=== PATIENT | male | born 1935 | race Caucasian/White ===

== ENCOUNTER → 2016-12-06 | Outpatient (CLI) | payer OTHER ==
[~2016-12-06] MED LIST: ACAR25TA2 PO; AMOX1TAB42 PO; APR25 PO; ASPI81TA28 PO; CARV12.52 PO; CARV25TA2 PO; CHOL1000 PO; CHOL20009 PO; CIPR250T3 PO; CLC100 PO; COEN1CAP32 PO; CZR25 PO; FLNIN; GFNSR600 PO; GLC/500 PO; HYDR-5688 PO; HYDR12.55 PO; INSU0.01 SQ; ISOS30TA35 PO; LDDP5 TD; MOMLX PO; MRLP17 PO; NRV5 PO; OMEP20CA9 PO; SALI0.6510; THM100 PO; TRAMTAB5 PO; VLTG EXT; ZCR40 PO
[2016-12-06 10:13] LABS: HEMATOCRIT 36.5 % (42-52); MEAN CELL VOLUME 90.6 fL (80-100); MEAN CORPUSCULAR HGB CONC 32.1 g/dl (32-36); MEAN PLATELET VOLUME 10.2 fL (7.4-10.4); PLATELET COUNT 190 K/uL (130-400); RED BLOOD COUNT 4.03 M/uL (4.7-6.1); WHITE BLOOD COUNT 5.58 K/uL (4.8-10.8)
[2016-12-06 10:25] LABS: BLOOD UREA NITROGEN 40 mg/dl (7-18); BUN/CREATININE RATIO 13.2 (10-20); CALCIUM 8.9 mg/dl (8.5-10.1); CARBON DIOXIDE 28 mmol/L (21-32); CHLORIDE 103 mmol/L (98-107); GLUCOSE 288 mg/dl (70-99); PHOSPHORUS 3.4 mg/dl (2.5-4.9); POTASSIUM 4.9 mmol/L (3.5-5.1); SODIUM 140 mmol/L (136-145)
[2016-12-06 11:00] LABS: URINE PROTIEN/CREAT RATIO 4.6 (0-0.2); URINE TOTAL PROTEIN 510.9 mg/dl (0-11.9)
[2016-12-06 14:21] LABS: MANUAL MICROSCOPIC REQUIRED? YES; URINE APPEARANCE CLEAR (CLEAR); URINE BILIRUBIN NEG (NEG); URINE COLOR YELLOW; URINE NITRITE NEG (NEG); URINE SPECIFIC GRAVITY 1.025 (1.000-1.030); UROBILINOGEN NEG (NEG)
[2016-12-06 14:23] LABS: REVIEW REQ? NO
[2016-12-06 14:51] LABS: URINE BACTERIA 1+ (NEG); URINE RBC 0-4 /hpf (0-4)
[2016-12-09 10:49] LABS: FREE KAPPA 73.4 MG/L (3.3-19.4); FREE KAPPA/LAMBDA RATIO 1.6 (0.26-1.65); FREE LAMBDA 45.9 MG/L (5.7-26.3)
== END | disposition home or self-care (01) ==
LOC: C.LAB1850 08:58
PROVIDERS: ATTEND Internal Medicine Nephrology
DX: I12.9 Hypertensive chronic kidney disease with stage 1 through stage 4 chronic kidney disease, or unspecified chronic kidney disease (principal); R80.9 Proteinuria, unspecified; N18.3 Chronic kidney disease, stage 3 (moderate); D64.9 Anemia, unspecified; E55.9 Vitamin D deficiency, unspecified

== ENCOUNTER → 2016-12-19 | Outpatient (CLI) | payer OTHER ==
--- NOTE | 2016-12-19 10:00 | DIAGNOSTIC IMAGING REPORT ---
Duplex renal Doppler DUPLEX RENAL ARTERY CLINICAL HISTORY: I10 [id number] [id number] Chronic kidney disease, s hypertension TECHNIQUE: Doppler COMPARISON STUDY: None FINDINGS: Velocity characteristics are unremarkable bilaterally. There is no evidence for significant stenotic process. Impedance characteristics are unremarkable. There are findings of moderate cortical thinning and scarring bilaterally. There is no evidence for hydronephrosis. IMPRESSION: No evidence for renal arterial stenosis. Electronically signed by: Rufus Pham M.D. 12/19/2016 9:58 AM Dictated Date/Time: 12/19/2016 9:57 AM
--- NOTE | 2016-12-19 10:07 | DIAGNOSTIC IMAGING REPORT ---
RENAL ULTRASOUND HISTORY: Hypertension I10 [id number] [id number] Chronic kidney disease, s COMPARISON: 10/11/2015 FINDINGS: Right kidney: Maximum dimension 10.9 cm. No evidence for hydronephrosis. Moderate cortical thinning and cortical scarring bilaterally Left kidney: Maximum dimension 10.0 cm. No evidence for hydronephrosis. Moderate cortical scarring and thinning Normal corticomedullary differentiation and cortical thickness. Bladder: No bladder wall thickening. The bilateral ureteral jets were identified. IMPRESSION: No evidence for hydronephrosis. Moderate cortical thinning and cortical scarring bilaterally. Electronically signed by: Rufus Pham M.D. 12/19/2016 10:06 AM Dictated Date/Time: 12/19/2016 10:03 AM
== END | disposition home or self-care (01) ==
LOC: C.ULTR 08:49
PROVIDERS: ATTEND Internal Medicine Nephrology
DX: D64.9 Anemia, unspecified (principal); I12.9 Hypertensive chronic kidney disease with stage 1 through stage 4 chronic kidney disease, or unspecified chronic kidney disease; N18.3 Chronic kidney disease, stage 3 (moderate); E55.9 Vitamin D deficiency, unspecified

== ENCOUNTER → 2017-01-20 | Outpatient (CLI) | payer OTHER ==
[2017-01-20 11:10] LABS: HEMATOCRIT 35.2 % (42-52); MEAN CELL VOLUME 88.7 fL (80-100); MEAN CORPUSCULAR HEMOGLOBIN 29.2 pg (25-34); MEAN PLATELET VOLUME 9.7 fL (7.4-10.4); PLATELET COUNT 202 K/uL (130-400); RED BLOOD COUNT 3.97 M/uL (4.7-6.1); WHITE BLOOD COUNT 6.37 K/uL (4.8-10.8)
[2017-01-20 11:13] LABS: URINE APPEARANCE CLEAR (CLEAR); URINE BILIRUBIN NEG (NEG); URINE COLOR YELLOW; URINE NITRITE NEG (NEG); URINE SPECIFIC GRAVITY 1.022 (1.000-1.030); UROBILINOGEN NEG (NEG)
[2017-01-20 11:19] LABS: MANUAL MICROSCOPIC REQUIRED? NO; REVIEW REQ? NO
[2017-01-20 11:24] LABS: BLOOD UREA NITROGEN 50 mg/dl (7-18); BUN/CREATININE RATIO 18.3 (10-20); CALCIUM 9.1 mg/dl (8.5-10.1); CARBON DIOXIDE 26 mmol/L (21-32); CHLORIDE 105 mmol/L (98-107); GLUCOSE 214 mg/dl (70-99); PHOSPHORUS 3.4 mg/dl (2.5-4.9); POTASSIUM 4.7 mmol/L (3.5-5.1); SODIUM 140 mmol/L (136-145)
[2017-01-20 11:47] LABS: URINE PROTIEN/CREAT RATIO 2.5 (0-0.2); URINE TOTAL PROTEIN 330.8 mg/dl (0-11.9)
== END | disposition home or self-care (01) ==
LOC: C.LAB1850 09:45
PROVIDERS: ATTEND Internal Medicine Nephrology
DX: I10 Essential (primary) hypertension (principal); R80.9 Proteinuria, unspecified; N18.3 Chronic kidney disease, stage 3 (moderate); D64.9 Anemia, unspecified; E55.9 Vitamin D deficiency, unspecified

== ENCOUNTER → 2017-03-19 | Outpatient (CLI) | payer OTHER ==
--- NOTE | 2017-03-19 10:07 | DIAGNOSTIC IMAGING REPORT ---
CHEST 2 VIEWS ROUTINE HISTORY: Cough. COMPARISON: Chest 10/06/2015. FINDINGS: The heart remains borderline enlarged. Linear density at the left lung base have improved and likely represent atelectasis or scarring. No new focal lung consolidations to suggest pneumonia. No evidence for pulmonary edema. No pleural effusions. No pneumothorax. IMPRESSION: 1. No acute process within the chest. 2. Stable borderline enlargement of the cardiac silhouette Electronically signed by: Justyn Mena M.D. 03/19/2017 10:06 AM Dictated Date/Time: 03/19/2017 10:04 AM
== END | disposition home or self-care (01) ==
LOC: C.RAD1850 09:41
PROVIDERS: ATTEND Family Medicine
DX: R05 Cough (principal); R09.89 Other specified symptoms and signs involving the circulatory and respiratory systems

== ENCOUNTER 2017-03-31 13:07 | Inpatient (IN) | payer OTHER ==
[~2017-03-31] VITALS: Ht 172.7 cm; Wt 95.5 kg
[~2017-03-31 13:07] MED LIST changes: -ACAR25TA2 PO; -AMOX1TAB42 PO; -APR25 PO; -CARV25TA2 PO; -CHOL1000 PO; -CIPR250T3 PO; -CLC100 PO; -CZR25 PO; -FLNIN; -GFNSR600 PO; -HYDR-5688 PO; -HYDR12.55 PO; -INSU0.01 SQ; -ISOS30TA35 PO; -LDDP5 TD; -MOMLX PO; -MRLP17 PO; -SALI0.6510; -THM100 PO; -VLTG EXT
[2017-03-31 14:10] LABS: BASO % 0.4 %; BASO ABS # 0.03 K/uL (0-0.2); COMPLETE YES; EOS % 1.9 %; HEMATOCRIT 39.2 % (42-52); IG% 0.9 %; LYMPH % 23.7 %; LYMPH ABS # 1.64 K/uL (1.2-3.4); MEAN CELL VOLUME 91.4 fL (80-100); MEAN CORPUSCULAR HEMOGLOBIN 28.7 pg (25-34); MEAN CORPUSCULAR HGB CONC 31.4 g/dl (32-36); MEAN PLATELET VOLUME 9.5 fL (7.4-10.4); MONO % 8.7 %; NEUT % 64.4 %; PLATELET COUNT 247 K/uL (130-400); RED BLOOD COUNT 4.29 M/uL (4.7-6.1); WHITE BLOOD COUNT 6.92 K/uL (4.8-10.8)
[2017-03-31] MEDS ORDERED: SODIUM CHLORIDE 0.9% 500ML 500 ML IV STA (14:25)
[2017-03-31 14:33] LABS: AST/SGOT 16 U/L (15-37); BLOOD UREA NITROGEN 43 mg/dl (7-18); BUN/CREATININE RATIO 15.2 (10-20); CALCIUM 8.4 mg/dl (8.5-10.1); CARBON DIOXIDE 28 mmol/L (21-32); CHLORIDE 106 mmol/L (98-107); GLUCOSE 146 mg/dl (70-99); POTASSIUM 4.2 mmol/L (3.5-5.1); SODIUM 141 mmol/L (136-145)
--- NOTE | 2017-03-31 14:42 | DIAGNOSTIC IMAGING REPORT ---
CT HEAD WITHOUT CONTRAST (CT) CLINICAL HISTORY: new onset double vision COMPARISON STUDY: No previous studies for comparison. TECHNIQUE: Axial CT of the brain is performed from the vertex to the skull base. IV contrast was not administered for this examination. CT DOSE: 812.17 mGycm FINDINGS: No intra or extra-axial mass lesions are visualized. There is no CT evidence of acute cortical infarction. There is no evidence of midline shift. There is no acute hemorrhage. No calvarial fractures are visualized. There are moderate white matter hypodensities likely on a small vessel basis. There is no evidence of pathologic ventricular dilatation. There is bilateral maxilla sinus mucosal thickening. There is complete opacification of the right sphenoid sinus. There are multiple opacified ethmoid air cells. There is near complete opacification left frontal sinus. IMPRESSION: 1. Progressive pansinus disease 2. Otherwise no acute intracranial findings Electronically signed by: Darren Campos M.D. 03/31/2017 2:41 PM Dictated Date/Time: 03/31/2017 2:39 PM
[2017-03-31 14:44] LABS: ALKALINE PHOSPHATASE 76 U/L (45-117); ALT/SGPT 21 U/L (12-78); THYROID STIMULATING HORMONE 0.998 uIu/ml (0.300-4.500)
--- NOTE | 2017-03-31 14:54 | DIAGNOSTIC IMAGING REPORT ---
SINGLE VIEW CHEST CLINICAL HISTORY: Cough. Change in mental status. FINDINGS: An AP, portable, upright chest radiograph is compared to study dated 03/19/2017. The examination is degraded by portable technique and patient rotation. The heart is mildly enlarged. The pulmonary vasculature is noncongested. Chronic interstitial thickening is similar to previous. Atelectasis is noted at the left lung base. Lungs and pleural spaces are otherwise clear. No pneumothorax is seen. The skeletal structures are osteopenic. The bony thorax is grossly intact. IMPRESSION: Mild cardiac enlargement with no acute cardiopulmonary abnormality. Electronically signed by: Cleveland Otoole M.D. 03/31/2017 2:53 PM Dictated Date/Time: 03/31/2017 2:52 PM
--- NOTE | 2017-03-31 15:12 | EMERGENCY ROOM VISIT NOTE ---
History First contact with patient: 13:45 Chief Complaint: DIZZY Stated Complaint: DIZZY, SEEING DOUBLE Nursing Triage Summary: "I have been getting light headed for a couple weeks or better it got worse over the weekend I started to see double" PCP took him off Januvia and replaced it with acarbose History of Present Illness The patient is a 81 year old male who presents to the Emergency Room with complaints of diplopia and pain above his left eye. He has had sinus pain for the past 2 months to a year, he is unsure of any treatment for this but has seen his primary care doctor who he remembers only prescribing him ear drops. He has not used any nasal sprays or antibiotics recently. It is now a constant ache which does not go away. His diplopia is his main reason for coming to the ER today with associated light headedness. This has slowly progressively worsened over the past 2 weeks. He denies any fevers, chills or vision changes other than the diplopia. He denies any other focal weakness or change in sensation. He notes his blood pressure increases every time he comes into hospital or goes to his PCP office but is normal at home. Review of Systems See HPI for pertinent positives & negatives. A total of 10 systems reviewed and were otherwise acutely negative. Past Medical/Surgical History Medical Problems: (1) Abrasion (2) ACEI/ARB contraindicated (3) Acute renal failure superimposed on stage 3 chronic kidney disease (4) Chest wall contusion (5) Chronic Kidney Disease, Unspecified (6) Diab Lori Wo Comp Type Ii Or Nos/Not Uncontrolled (7) Dizziness (8) Fall (9) Fall (10) Fall (11) Fall (12) History Of Fall (13) Hyperlipidemia Nec/Nos (14) Hypertension Nos (15) Hypertensive urgency (16) Intractable back pain (17) Intractable back pain (18) Proteinuria (19) Shoulder pain (20) Shoulder pain (21) Sinus disease (22) Spinal stenosis (23) Spinal Stenosis-Lumbar (24) Weakness Surgical Problems: (1) History of back surgery Family History Cancer Diabetes mellitus Heart disease Hypertension Social History Smoking Status: Former Smoker Drug Use: none Marital Status: Housing Status: lives with significant other Occupation Status: retired Current/Historical Medications Scheduled Acarbose (Precose), 25 MG PO DAILY Aspirin (Aspirin Ec), 81 MG PO QAM Carvedilol (Coreg), 12.5 MG PO BID Cholecalciferol (Vitamin D3), 2,000 INTER.UNIT PO QAM Hydrochlorothiazide (Hydrochlorothiazide), 12.5 MG PO DAILY Insulin Isophane (Human) (Novolin N Relion), 10 UNITS SQ QPM Isosorbide Mononitrate Ext Rel (Imdur Ext Rel), 30 MG PO DAILY Losartan Potassium (Losartan Potassium), 25 MG PO DAILY Omeprazole (Prilosec), 20 MG PO QAM Scheduled PRN Tramadol/Acetaminophen (Ultracet), 1 TAB PO TID PRN for Pain Allergies Coded Allergies: Lisinopril (Verified Allergy, Unknown, HIVES, 03/31/17) Lovastatin (Verified Allergy, Unknown, LEG CRAMPS, 03/31/17) Rofecoxib (Verified Allergy, Unknown, UNKNOWN, 03/31/17) Simvastatin (Verified Allergy, Unknown, LEG CRAMPS, 03/31/17) Methadone (Verified Adverse Reaction, Unknown, HALUCINATIONS, AGITATION, HEADACHES, 03/31/17) Physical Exam Vital Signs Date Time Temp Pulse Resp B/P (MAP) Pulse Ox O2 Delivery O2 Flow Rate FiO2 03/31/17 19:33 203/88 95 03/31/17 17:32 200/78 03/31/17 17:14 86 16 227/95 95 Room Air 03/31/17 15:44 63 20 210/86 96 Room Air 214/89 03/31/17 14:55 66 16 228/81 95 Room Air 198/97 03/31/17 13:43 68 18 208/75 95 Room Air 78 183/102 73 194/77 03/31/17 13:40 67 03/31/17 13:30 95 Room Air 03/31/17 13:15 36.3 70 20 198/83 95 Room Air Physical Exam VITAL SIGNS: were reviewed as above GENERAL: no acute distress, lying in bed, appears non toxic SKIN: Warm dry and pink, no rashes HEAD: Normocephalic and atraumatic, no pain on palpation of sinuses EYES: extraocular muscles intact (diplopia noted on inferior gaze with and without glasses, resolves with closes one eye), pupils equal and reactive to light, no papilledema OROPHARYNX: non erythematous, clear and moist, uvula central NECK: Supple, no adenopathy or meningismus LUNGS: clear to auscultation, no accessory muscle use HEART: Regular rate and rhythm, heart sounds 1+2, soft systolic murmur LUSB ABDOMEN: Soft and nontender, bowel sounds normal BACK: no CVA tenderness EXTREMITIES: Warm and well perfused, no calf tenderness/swelling, no pedal edema. NEUROLOGICALLY: Awake alert and oriented. Upper and lower limb motor and sensory examination unremarkable. Cranial nerves 2-12 intact (except diplopia as noted above). Cerebellar testing is within normal limits. There is no nystagmus. There is no facial droop. Speech is clear. Vision is grossly normal. He appears mildly confused about recent events and history. HINTS examination negative for central lesion. MUSCULOSKELETAL: Good muscle tone. No evidence of trauma Medical Decision & Procedures ER Provider Diagnostic Interpretation: CT HEAD WITHOUT CONTRAST (CT) CLINICAL HISTORY: new onset double vision COMPARISON STUDY: No previous studies for comparison. TECHNIQUE: Axial CT of the brain is performed from the vertex to the skull base. IV contrast was not administered for this examination. CT DOSE: 812.17 mGycm FINDINGS: No intra or extra-axial mass lesions are visualized. There is no CT evidence of acute cortical infarction. There is no evidence of midline shift. There is no acute hemorrhage. No calvarial fractures are visualized. There are moderate white matter hypodensities likely on a small vessel basis. There is no evidence of pathologic ventricular dilatation. There is bilateral maxilla sinus mucosal thickening. There is complete opacification of the right sphenoid sinus. There are multiple opacified ethmoid air cells. There is near complete opacification left frontal sinus. IMPRESSION: 1. Progressive pansinus disease 2. Otherwise no acute intracranial findings Electronically signed by: Darren Campos M.D. 03/31/2017 2:41 PM Dictated Date/Time: 03/31/2017 2:39 PM SINGLE VIEW CHEST CLINICAL HISTORY: Cough. Change in mental status. FINDINGS: An AP, portable, upright chest radiograph is compared to study dated 03/19/2017. The examination is degraded by portable technique and patient rotation. The heart is mildly enlarged. The pulmonary vasculature is noncongested. Chronic interstitial thickening is similar to previous. Atelectasis is noted at the left lung base. Lungs and pleural spaces are otherwise clear. No pneumothorax is seen. The skeletal structures are osteopenic. The bony thorax is grossly intact. IMPRESSION: Mild cardiac enlargement with no acute cardiopulmonary abnormality. Electronically signed by: Cleveland Otoole M.D. 03/31/2017 2:53 PM Dictated Date/Time: 03/31/2017 2:[address] DOSE: 905.86 mGy.cm HISTORY: Pain left frontal sinus opacification, inferior gaze diplopia TECHNIQUE: Multiaxial CT images of the paranasal sinuses were performed and reformatted in the coronal plane without the use of contrast. COMPARISON: 06/20/2008 FINDINGS: Progressive increase in opacification of the left central frontal sinus, ethmoid air cells, as well as the left and to lesser extent right maxillary sinus. Soft tissue occlusion of the ostiomeatal units bilaterally. Polypoid and hyperplastic changes the nasal turbinates. No evidence for bony destructive process. All findings are at least mildly progressive compared to the prior exam. A previously placed left antral window is opacified and/or occluded. The mastoid air cells are clear. The nasal septum is midline. The orbits are unremarkable. IMPRESSION: 1. Progressive opacification of the bulk of the sinuses as described. 2. The ostiomeatal units as well as left antral window are soft tissue occluded. 3. All findings are progressive compared to the prior exam. Electronically signed by: Rufus Pham M.D. 03/31/2017 6:13 PM Dictated Date/Time: 03/31/2017 6:10 PM Laboratory Results 03/31/17 13:36 Red Blood Count 4.29, Mean Corpuscular Volume 91.4, Mean Corpuscular Hemoglobin 28.7, Mean Corpuscular Hemoglobin Concent 31.4, Mean Platelet Volume 9.5, Neutrophils (%) (Auto) 64.4, Lymphocytes (%) (Auto) 23.7, Monocytes (%) (Auto) 8.7, Eosinophils (%) (Auto) 1.9, Basophils (%) (Auto) 0.4, Neutrophils # (Auto) 4.46, Lymphocytes # (Auto) 1.64, Monocytes # (Auto) 0.60, Eosinophils # (Auto) 0.13, Basophils # (Auto) 0.03 03/31/17 13:36 Test 03/31/17 00:00 03/31/17 13:36 Urine Color YELLOW Urine Appearance CLEAR (CLEAR) Urine pH 5.5 (4.5-7.5) Urine Specific [place] 1.015 (1.000-1.030) Urine Protein 2+ (NEG) Urine Glucose (UA) NEG (NEG) Urine Ketones NEG (NEG) Urine Occult Blood TRACE (NEG) Urine Nitrite NEG (NEG) Urine Bilirubin NEG (NEG) Urine Urobilinogen NEG (NEG) Urine Leukocyte Esterase NEG (NEG) Urine WBC (Auto) 0 /hpf (0-5) Urine RBC (Auto) 0-4 /hpf (0-4) Urine Hyaline Casts (Auto) 0 /lpf (0-5) Urine Epithelial Cells (Auto) 0-5 /lpf (0-5) Urine Bacteria (Auto) NEG (NEG) White Blood Count 6.92 K/uL (4.8-10.8) Red Blood Count 4.29 M/uL (4.7-6.1) Hemoglobin 12.3 g/dL (14.0-18.0) Hematocrit 39.2 % (42-52) Mean Corpuscular Volume 91.4 fL (80-100) Mean Corpuscular Hemoglobin 28.7 pg (25-34) Mean Corpuscular Hemoglobin Concent 31.4 g/dl (32-36) Platelet Count 247 K/uL (130-400) Mean Platelet Volume 9.5 fL (7.4-10.4) Neutrophils (%) (Auto) 64.4 % Lymphocytes (%) (Auto) 23.7 % Monocytes (%) (Auto) 8.7 % Eosinophils (%) (Auto) 1.9 % Basophils (%) (Auto) 0.4 % Neutrophils # (Auto) 4.46 K/uL (1.4-6.5) Lymphocytes # (Auto) 1.64 K/uL (1.2-3.4) Monocytes # (Auto) 0.60 K/uL (0.11-0.59) Eosinophils # (Auto) 0.13 K/uL (0-0.5) Basophils # (Auto) 0.03 K/uL (0-0.2) RDW Standard Deviation 49.3 fL (36.4-46.3) RDW Coefficient of Variation 14.7 % (11.5-14.5) Immature Granulocyte % (Auto) 0.9 % Immature Granulocyte # (Auto) 0.06 K/uL (0.00-0.02) Anion Gap 7.0 mmol/L (3-11) Estimated GFR () 23.5 Estimated GFR (Non- 20.2 BUN/Creatinine Ratio 15.2 (10-20) Calcium Level 8.4 mg/dl (8.5-10.1) Total Bilirubin 0.3 mg/dl (0.2-1) Direct Bilirubin < 0.1 mg/dl (0-0.2) Aspartate Amino Transf (AST/SGOT) 16 U/L (15-37) Alanine Aminotransferase (ALT/SGPT) 21 U/L (12-78) Alkaline Phosphatase 76 U/L (45-117) Total Protein 8.1 gm/dl (6.4-8.2) Albumin 3.7 gm/dl (3.4-5.0) Thyroid Stimulating Hormone (TSH) 0.998 uIu/ml (0.300-4.500) Medications Administered Medications (Trade) Dose Ordered Sig/Sloan Route Start Time Stop Time Status Last Admin Dose Admin Sodium Chloride 500 ml @ 999 mls/hr Q31M STAT IV 03/31/17 14:25 03/31/17 14:55 DC 03/31/17 14:49 999 MLS/HR Ampicillin Sodium/ Sulbactam Sodium 3000 mg/Sodium Chloride 108 ml @ 200 mls/hr NOW STAT IV 03/31/17 15:59 03/31/17 16:31 DC 03/31/17 16:22 200 MLS/HR Carvedilol (Coreg Tab) 12.5 mg NOW STAT PO 03/31/17 16:13 03/31/17 16:14 DC 03/31/17 16:22 12.5 MG Carvedilol (Coreg Tab) 12.5 mg NOW ONCE PO 03/31/17 16:45 03/31/17 16:46 DC 03/31/17 16:48 12.5 MG Labetalol HCl (Normodyne IV) 10 mg ONE STAT IV 03/31/17 17:21 03/31/17 17:23 DC 03/31/17 17:32 10 MG Dexamethasone Sodium Phosphate 2 mg/Syringe 0.5 ml @ 1 mls/min ONE STAT IV 03/31/17 18:15 03/31/17 18:18 DC 03/31/17 18:15 1 MLS/MIN ECG Indication: altered mental status Rate (beats per minute): 67 Rhythm: normal sinus Findings: no acute ischemic change Change: no significant change ED Course Complete history and physical taken, routine labs with TSH and CT head ordered Discussed patient with Dr Rolon, recommended ambulating and discussing with neurology after CT head 16:[address] head patient was discussed with Dr Malhotra who recommended MRI head 17:[address] Juan who recommended CT sinuses and inpatient admission for stroke if MRI abnormal or need for IV antibiotics and steroids if MRI is normal for potential superior oblique involvement. 17:[address] Werner who accepted patient for evaluation for admission Medical Decision Prior records/ancillary studies reviewed. Triage Nursing notes reviewed. The patient's history was concerning for dizziness, diplopia and sinus pain. Differential diagnosis: Etiologies such as orbital cellulitis, benign positional vertigo, dehydration, hypovolemia, anemia, tumor, infection, hypoglycemia, electrolyte abnormalities, cardiac sources, intracerebral event, toxicologic, neurologic, as well as others were entertained. Physical examination: Diplopia on inferior gaze as above, resolves with closing either eye. ER treatment provided: Home dose of carvedilol given for hypertension, labetalol added due to persistent hypertension. Unasyn given for sinusitis with possible superior oblique involvement. Dexamethasone given as discussed with Dr Juan. On reassessment the patient felt well but diplopia continues Diagnostics interpretation by me: ECG: Normal sinus rhythm without ischemic change or evidence of dysrhythmia. His labs were stable with a normal WBC. Consultation: A consultation was placed with the [facility] hospitalist. The case was discussed and diagnostics were reviewed. The patient was evaluated in the ER for further treatment. Etiology of diplopia unclear and awaiting results of MRI when discussed with hospitalist. CVA not ruled out at this time but sinusitis with edema of superior oblique is also concerning enough for admission and consultation with ENT if MRI is negative for acute CVA. The patient, his and son were informed about the findings as listed above. All questions were answered and he pleased with the treatment. He will be evaluated by [facility] hospitalist group for inpatient admission. Impression Primary Impression: Diplopia Additional Impressions: Sinusitis Hypertensive urgency Departure Information Dispostion Being Evaluated By Hospitalist Condition GOOD Referrals Von Kam M.D. 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
[2017-03-31] MEDS ORDERED: AMPICILLIN/SULBACTAM SOD INJ 3,000 MG in SODIUM CHLORIDE 0.9% 100ML 100 ML IV STA (15:59)
[2017-03-31] MEDS ORDERED: INSU0.01 SQ (16:04)
[2017-03-31] MEDS ORDERED: HYDR12.55 PO (16:04)
[2017-03-31] MEDS ORDERED: CZR25 PO (16:04)
[2017-03-31] MEDS ORDERED: ACAR25TA2 PO (16:04)
[2017-03-31] MEDS ORDERED: ISOS30TA35 PO (16:04)
[2017-03-31] MEDS ORDERED: ASPI81TA28 PO (16:07)
[2017-03-31] MEDS ORDERED: CHOL1000 PO (16:07)
[2017-03-31] MEDS ORDERED: CARV25TA2 PO (16:07)
[2017-03-31] MEDS ORDERED: CARVEDILOL 12.5 MG TAB PO STA (16:13)
[2017-03-31] MEDS ORDERED: CARVEDILOL 12.5 MG TAB PO ONE (16:45)
[2017-03-31] MEDS ORDERED: LABETALOL HCL IV 5 MG/ML 20ML IV STA (17:21)
[2017-03-31 17:37] LABS: URINE APPEARANCE CLEAR (CLEAR); URINE BILIRUBIN NEG (NEG); URINE COLOR YELLOW; URINE EPITHELIAL CELL AUTO 0-5 /lpf (0-5); URINE NITRITE NEG (NEG); URINE PH 5.5 (4.5-7.5); URINE SPECIFIC GRAVITY 1.015 (1.000-1.030); UROBILINOGEN NEG (NEG)
[2017-03-31 17:39] LABS: MANUAL MICROSCOPIC REQUIRED? NO; REVIEW REQ? NO
--- NOTE | 2017-03-31 18:14 | DIAGNOSTIC IMAGING REPORT ---
SINUS CT CT DOSE: 905.86 mGy.cm HISTORY: Pain left frontal sinus opacification, inferior gaze diplopia TECHNIQUE: Multiaxial CT images of the paranasal sinuses were performed and reformatted in the coronal plane without the use of contrast. COMPARISON: 06/20/2008 FINDINGS: Progressive increase in opacification of the left central frontal sinus, ethmoid air cells, as well as the left and to lesser extent right maxillary sinus. Soft tissue occlusion of the ostiomeatal units bilaterally. Polypoid and hyperplastic changes the nasal turbinates. No evidence for bony destructive process. All findings are at least mildly progressive compared to the prior exam. A previously placed left antral window is opacified and/or occluded. The mastoid air cells are clear. The nasal septum is midline. The orbits are unremarkable. IMPRESSION: 1. Progressive opacification of the bulk of the sinuses as described. 2. The ostiomeatal units as well as left antral window are soft tissue occluded. 3. All findings are progressive compared to the prior exam. Electronically signed by: Rufus Pham M.D. 03/31/2017 6:13 PM Dictated Date/Time: 03/31/2017 6:10 PM
[2017-03-31] MEDS ORDERED: DEXAMETHASONE INJ 2 MG in SYRINGE 0 ML IV STA (18:15)
--- NOTE | 2017-03-31 18:38 | DIAGNOSTIC IMAGING REPORT ---
Brain MRI WITHOUT CONTRAST HISTORY: Visual change diplopia on inferior gaze TECHNIQUE: Multiplanar multisequence MRI of the brain was performed without the use of contrast. COMPARISON STUDY: 03/01/2014 FINDINGS: Diffusion-weighted images show no evidence for an acute ischemic event. Findings of generalized moderate cerebellar as well as cerebral atrophy. Considerable chronic small vessel change. Mild progressive opacification of the sinuses. No evidence of midline shift. IMPRESSION: 1. No acute intracranial abnormality. 2. No evidence for an acute ischemic event. 3. Atrophy and chronic small vessel change somewhat progressive compared to the prior study 2013 4. Mildly progressive sinus change compared to the prior exam. Electronically signed by: Rufus Pham M.D. 03/31/2017 6:36 PM Dictated Date/Time: 03/31/2017 6:34 PM
--- NOTE | 2017-03-31 18:54 | History and Physical ---
History & Physical Date & Time of Service: Mar 31, 2017 at 18:35 Chief Complaint: Dizzy, Seeing Double Primary Care Physician: Von Kam M.D. History of Present Illness Source: patient, family About 4-5 days ago, patient began experiencing dizziness and lightheadedness, which are long standing symptoms ongoing for a couple of months, possibly orthostatic in nature and a/w rapid movements/changes in position. Around the same time, he began having issues with balance (but denies recent falls) and double vision. He also states there is some pain above the left eye, although previously it was painful over entire left face. Patient denies URTI symptoms, but states that he has had cough for a couple of months - with associated chest pain on coughing. He denies significant history of sinus infections. Patient denies history of stroke, as well as dropping eye lid, slurred speech, difficulty swallowing or asymmetric weakness/paralysis. He also has a history of elevated blood pressure, for which he is on 4 antihypertensives. He believes his current elevated blood pressure is related to the severe back pain he is having (also chronic, but recently worsened as per patient), which he attributes to lying in bed. At home he sleeps in a recliner due to back pain, not orthopnea. He denies headache, abdominal pain, worsening vision. Past Medical/Surgical History Medical Problems: (1) Abrasion Status: Resolved (2) Chest wall contusion Status: Resolved (3) Chronic Kidney Disease, Unspecified Status: Chronic (4) Diab Lori Wo Comp Type Ii Or Nos/Not Uncontrolled Status: Chronic (5) Dizziness Status: Resolved (6) Fall Status: Resolved (7) Fall Status: Resolved (8) Fall Status: Resolved (9) Fall Status: Resolved (10) History Of Fall Status: Resolved (11) Hyperlipidemia Nec/Nos Status: Chronic (12) Hypertension Nos Status: Chronic (13) Shoulder pain Status: Resolved (14) Shoulder pain Status: Resolved (15) Spinal Stenosis-Lumbar Status: Chronic Surgical Problems: (1) History of back surgery Status: Resolved Family History Cancer Diabetes mellitus Heart disease Hypertension Social History Smoking Status: Former Smoker (Ex smoker of 50 years, stopped chewing as of setp 2016) Drug Use: none Marital Status: Housing status: lives with significant other Occupational Status: retired Immunizations History of Influenza Vaccine: N/A History of Tetanus Vaccine?: Yes History of Pneumococcal: Yes History of Hepatitis B Vaccine: No Multi-Drug Resistant Organisms History of MDRO: No Allergies Coded Allergies: Lisinopril (Verified Allergy, Unknown, HIVES, 03/31/17) Lovastatin (Verified Allergy, Unknown, LEG CRAMPS, 03/31/17) Rofecoxib (Verified Allergy, Unknown, UNKNOWN, 03/31/17) Simvastatin (Verified Allergy, Unknown, LEG CRAMPS, 03/31/17) Methadone (Verified Adverse Reaction, Unknown, HALUCINATIONS, AGITATION, HEADACHES, 03/31/17) Home Medications Scheduled Acarbose (Precose), 25 MG PO DAILY Aspirin (Aspirin Ec), 81 MG PO QAM Carvedilol (Coreg), 12.5 MG PO BID Cholecalciferol (Vitamin D3), 2,000 INTER.UNIT PO QAM Hydrochlorothiazide (Hydrochlorothiazide), 12.5 MG PO DAILY Insulin Isophane (Human) (Novolin N Relion), 10 UNITS SQ QPM Isosorbide Mononitrate Ext Rel (Imdur Ext Rel), 30 MG PO DAILY Losartan Potassium (Losartan Potassium), 25 MG PO DAILY Omeprazole (Prilosec), 20 MG PO QAM Scheduled PRN Tramadol/Acetaminophen (Ultracet), 1 TAB PO TID PRN for Pain Review of Systems Constitutional: No fever, No chills Eyes: + diplopia, + problem reported (Dry eyes), No eye pain, No discharge ENT: + hearing loss, No nasal symptoms, No sore throat, No tinnitus, No dental problems, No trouble swallowing Respiratory: + cough, + dyspnea on exertion (with stairs), + problem reported ( Dry mouth), No sputum, No shortness of breath Cardiovascular: + chest pain (2/2 to coughing), + orthopnea (2/2 to back pain) , No palpitations Abdomen: + constipation, No pain, No nausea, No vomiting, No GI bleeding Musculoskeletal: + joint pain (back pain, arthritis of hands), No muscle pain Genitourinary - Male: + problem reported (nocturia), No hematuria, No dysuria Neurologic: + balance problems, No numbness/tingling Integumentary: No rash, No itch Allergic / Immunologic: No environmental allergies, No seasonal allergies, No pet sensitivities, No food allergies Physical Exam Vital Signs Date Time Temp Pulse Resp B/P (MAP) Pulse Ox O2 Delivery O2 Flow Rate FiO2 03/31/17 17:32 200/78 03/31/17 17:14 86 16 227/95 95 Room Air 03/31/17 15:44 63 20 210/86 96 Room Air 214/89 03/31/17 14:55 66 16 228/81 95 Room Air 198/97 03/31/17 13:43 68 18 208/75 95 Room Air 78 183/102 73 194/77 03/31/17 13:40 67 03/31/17 13:30 95 Room Air 03/31/17 13:15 36.3 70 20 198/83 95 Room Air General Appearance: WD/WN, no apparent distress Head: normocephalic, atraumatic Eyes: normal inspection, PERRL (small pupils ~2-3mm), EOMI, sclerae normal, + pertinent finding (poor tracking, no nystagmus, diplopia elicited on viewing patient's feet. 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 nml as tested, no motor/sensory deficits, alert, normal mood/affect, oriented x 3 Skin: normal color, warm/dry, no rash Diagnostics Laboratory Results Results Past 24 Hours Test 03/31/17 00:00 03/31/17 13:36 Range/Units Urine Color YELLOW Urine Appearance CLEAR CLEAR Urine pH 5.5 4.5-7.5 Urine Specific [place] 1.015 1.000-1.030 Urine Protein 2+ NEG Urine Glucose (UA) NEG NEG Urine Ketones NEG NEG Urine Occult Blood TRACE NEG Urine Nitrite NEG NEG Urine Bilirubin NEG NEG Urine Urobilinogen NEG NEG Urine Leukocyte Esterase NEG NEG Urine WBC (Auto) 0 0-5 /hpf Urine RBC (Auto) 0-4 0-4 /hpf Urine Hyaline Casts (Auto) 0 0-5 /lpf Urine Epithelial Cells (Auto) 0-5 0-5 /lpf Urine Bacteria (Auto) NEG NEG White Blood Count 6.92 4.8-10.8 K/uL Red Blood Count 4.29 4.7-6.1 M/uL Hemoglobin 12.3 14.0-18.0 g/dL Hematocrit 39.2 42-52 % Mean Corpuscular Volume 91.4 80-100 fL Mean Corpuscular Hemoglobin 28.7 25-34 pg Mean Corpuscular Hemoglobin Concent 31.4 32-36 g/dl Platelet Count 247 130-400 K/uL Mean Platelet Volume 9.5 7.4-10.4 fL Neutrophils (%) (Auto) 64.4 % Lymphocytes (%) (Auto) 23.7 % Monocytes (%) (Auto) 8.7 % Eosinophils (%) (Auto) 1.9 % Basophils (%) (Auto) 0.4 % Neutrophils # (Auto) 4.46 1.4-6.5 K/uL Lymphocytes # (Auto) 1.64 1.2-3.4 K/uL Monocytes # (Auto) 0.60 0.11-0.59 K/uL Eosinophils # (Auto) 0.13 0-0.5 K/uL Basophils # (Auto) 0.03 0-0.2 K/uL RDW Standard Deviation 49.3 36.4-46.3 fL RDW Coefficient of Variation 14.7 11.5-14.5 % Immature Granulocyte % (Auto) 0.9 % Immature Granulocyte # (Auto) 0.06 0.00-0.02 K/uL Sodium Level 141 136-145 mmol/L Potassium Level 4.2 3.5-5.1 mmol/L Chloride Level 106 98-107 mmol/L Carbon Dioxide Level 28 21-32 mmol/L Anion Gap 7.0 3-11 mmol/L Blood Urea Nitrogen 43 7-18 mg/dl Creatinine 2.80 0.60-1.40 mg/dl Estimated GFR () 23.5 Estimated GFR (Non- 20.2 BUN/Creatinine Ratio 15.2 10-20 Random Glucose 146 70-99 mg/dl Calcium Level 8.4 8.5-10.1 mg/dl Total Bilirubin 0.3 0.2-1 mg/dl Direct Bilirubin < 0.1 0-0.2 mg/dl Aspartate Amino Transf (AST/SGOT) 16 15-37 U/L Alanine Aminotransferase (ALT/SGPT) 21 12-78 U/L Alkaline Phosphatase 76 45-117 U/L Total Protein 8.1 6.4-8.2 gm/dl Albumin 3.7 3.4-5.0 gm/dl Thyroid Stimulating Hormone (TSH) 0.998 0.300-4.500 uIu/ml Diagnostic Radiology CT HEAD WITHOUT CONTRAST (CT) FINDINGS: No intra or extra-axial mass lesions are visualized. There is no CT evidence of acute cortical infarction. There is no evidence of midline shift. There is no acute hemorrhage. No calvarial fractures are visualized. There are moderate white matter hypodensities likely on a small vessel basis. There is no evidence of pathologic ventricular dilatation. There is bilateral maxilla sinus mucosal thickening. There is complete opacification of the right sphenoid sinus. There are multiple opacified ethmoid air cells. There is near complete opacification left frontal sinus. IMPRESSION: 1. Progressive pansinus disease 2. Otherwise no acute intracranial findings SINGLE VIEW CHEST FINDINGS: An AP, portable, upright chest radiograph is compared to study dated 03/19/2017. The examination is degraded by portable technique and patient rotation. The heart is mildly enlarged. The pulmonary vasculature is noncongested. Chronic interstitial thickening is similar to previous. Atelectasis is noted at the left lung base. Lungs and pleural spaces are otherwise clear. No pneumothorax is seen. The skeletal structures are osteopenic. The bony thorax is grossly intact. IMPRESSION: Mild cardiac enlargement with no acute cardiopulmonary abnormality. Brain MRI WITHOUT CONTRAST FINDINGS: Diffusion-weighted images show no evidence for an acute ischemic event. Findings of generalized moderate cerebellar as well as cerebral atrophy. Considerable chronic small vessel change. Mild progressive opacification of the sinuses. No evidence of midline shift. IMPRESSION: 1. No acute intracranial abnormality. 2. No evidence for an acute ischemic event. 3. Atrophy and chronic small vessel change somewhat progressive compared to the prior study 2013 4. Mildly progressive sinus change compared to the prior exam. SINUS CT FINDINGS: Progressive increase in opacification of the left central frontal sinus, ethmoid air cells, as well as the left and to lesser extent right maxillary sinus. Soft tissue occlusion of the ostiomeatal units bilaterally. Polypoid and hyperplastic changes the nasal turbinates. No evidence for bony destructive process. All findings are at least mildly progressive compared to the prior exam. A previously placed left antral window is opacified and/or occluded. The mastoid air cells are clear. The nasal septum is midline. The orbits are unremarkable. IMPRESSION: 1. Progressive opacification of the bulk of the sinuses as described. 2. The ostiomeatal units as well as left antral window are soft tissue occluded. 3. All findings are progressive compared to the prior exam. EKG Normal sinus rhythm Abnormal QRS-T angle, consider primary T wave abnormality Abnormal ECG When compared with ECG of 11-OCT-2015 13:08, No significant change was found Impression Assessment and Plan 81 year old male with PMHx DMII, CKD, HTN, chronic back pain and h/o falls admitted with diplopia with pansinus disease confirmed on imaging, as well as hypertensive urgency. Diplopia - Stroke workup negative - given Unasyn and 2mg Dexamethasome in ED - Started on IV Unasyn 3000mg q6h and IV azithromycin 500mg daily for atypical coverage - Flonase - topical steroid instead of systemic, to prevent severe hyperglycemia - Consult ENT HTN - SBP in the 200s in ED - Hold losartan and HCTz - Continue carvedilol 12.5mg BID - Nitropaste over night q6h (then discontinue), then Imdur increased to 60mg in the morning - IV hydralazine 10mg PRN sBP>180 or dBP >110 Mild GILDARDO - Creatinine 2.8 (baseline in last year 2.1-2.4) - mIVF NSS @100cc/hr x 24 hours, then reassess - Trend BMP Back pain - May be contributing to elevated BP - Ultracet 1 tab TID PRN - Started Voltaren gel, lidocaine patch and [place]ancos PRN pain - PT/OT consulted DM - poorly controlled, home sugars range in 200s - Continue acarbose, hold home insulin while in hospital - ISS with BGS ac/hs Dry eyes/dry mouth - Recommend day team assessing with fluorecin strip to look for evidence of incomplete lid closing. - Consider need for testing for Sjgren's syndrome Constipation - Scheduled Miralax and Colace daily GERD - Protonix 20mg VTE PPx - Hep SC Level of Care Telemetry Advanced Directives Existing Advance Directive: No Existing Living Will: Yes Existing Power of Financial Aid Officer: No Existing Health Care Proxy: Yes (Chantal Foley) Resuscitation Status DO NOT RESUSCITATE VTE Prophylaxis VTE Risk Assessment Done? Y/N: Yes Risk Level: Moderate Given or contraindicated: Unfractionated heparin SQ Social Service Consult None Apply Resident Tracking Resident Involvement: Resident Care Provided Care Provided: Adult [facility] Medicine Assessment and Plan Attending Addendum: I have physically seen and examined this patient, have directed their medical care, have supervised the medical residents activities, and agree with the H&P as noted above, with the following changes: NONE
[2017-03-31] MEDS ORDERED: GLUCAGON FOR INJ 1 MG VIAL SQ PRN (19:15)
[2017-03-31] MEDS ORDERED: ACETAMINOPHEN 325 MG TAB PO PRN (19:15)
[2017-03-31] MEDS ORDERED: GLUCOSE 10 TABS/TUBE PO PRN (19:15)
[2017-03-31] MEDS ORDERED: TRAMADOL/ACETAMINOPHEN 37.5/325MG TAB PO PRN (19:15)
[2017-03-31] MEDS ORDERED: GLUCOSE 40% GEL 15 GM TUBE PO PRN (19:15)
[2017-03-31] MEDS ORDERED: ONDANSETRON INJ 2 MG/ML 2 ML VIAL IV PRN (19:15)
[2017-03-31] MEDS ORDERED: POLYETHYLENE (MIRALAX) 17 GM PACK PO PRN (19:15)
[2017-03-31] MEDS ORDERED: ALUMINUM/MAGNESIUM/SIMETH (MAALOX MAX) 30 ML UDC PO PRN (19:15)
[2017-03-31] MEDS ORDERED: MAGNESIUM HYDROXIDE SUSP 30 ML UDC PO PRN (19:15)
[2017-03-31] MEDS ORDERED: AZITHROMYCIN IV 500 MG in DEXTROSE 5% 250ML 250 ML IV ONE (20:13)
[2017-03-31 20:33] VITALS: BP 213/92; PULSE 70; TEMP 36.6; O2SAT 95; Ht 172.7 cm; Wt 95.5 kg
--- NOTE | 2017-03-31 20:41 | EMERGENCY ROOM VISIT NOTE ---
History Report prepared by Little: Linda Cazares Under the Supervision of: Dr. Kwaku Rolon D.O. First contact with patient: 13:45 Chief Complaint: DIZZY Stated Complaint: DIZZY, SEEING DOUBLE Nursing Triage Summary: "I have been getting light headed for a couple weeks or better it got worse over the weekend I started to see double" PCP took him off Januvia and replaced it with acarbose History of Present Illness The patient is a 81 year old male who presents to the Emergency Room with complaints of intermittent double vision that started 3-4 days ago. The images are next to each other when he sees double. The double vision resolves when he closes one of his eyes. He states that even when the double vision isn't there his vision is blurry. He is also experiencing lightheadedness that is worse with changes in position and a headache that he describes as pressure above his left eye. The is also experiencing chest pain with coughing and denies any chest pain otherwise. He also denies shortness of breath, abdominal pain, any trouble talking or swallowing, and weakness or numbness in his arms or legs. The patient states that he typically has trouble ambulating secondary to chronic back pain, but he adds that he has been experiencing increased trouble ambulating over the past couple days. The patient denies any recent falls or trauma. Source of History: patient Onset: 3-4 days ago Position: eye (bilateral) Quality: other (double vision, side by side images) Timing: intermittent Modifying Factors (Relieving): other (closing one eye) Associated Symptoms: + headache, + chest pain (with coughing), No SOB, No abdominal pain, No weakness, No numbness Note: lightheadedness, no trouble talking or swallowing Review of Systems See HPI for pertinent positives & negatives. A total of 10 systems reviewed and were otherwise negative. Past Medical & Surgical Medical Problems: (1) Abrasion (2) ACEI/ARB contraindicated (3) Acute renal failure superimposed on stage 3 chronic kidney disease (4) Chest wall contusion (5) Chronic Kidney Disease, Unspecified (6) Diab Lori Wo Comp Type Ii Or Nos/Not Uncontrolled (7) Dizziness (8) Fall (9) Fall (10) Fall (11) Fall (12) History Of Fall (13) Hyperlipidemia Nec/Nos (14) Hypertension Nos (15) Hypertensive urgency (16) Intractable back pain (17) Intractable back pain (18) Proteinuria (19) Shoulder pain (20) Shoulder pain (21) Sinus disease (22) Spinal stenosis (23) Spinal Stenosis-Lumbar (24) Weakness Surgical Problems: (1) History of back surgery Family History Cancer Diabetes mellitus Heart disease Hypertension Social History Smoking Status: Former Smoker Drug Use: none Marital Status: Housing Status: lives with significant other Occupation Status: retired Current/Historical Medications Scheduled Acarbose (Precose), 25 MG PO DAILY Aspirin (Aspirin Ec), 81 MG PO QAM Carvedilol (Coreg), 12.5 MG PO BID Cholecalciferol (Vitamin D3), 2,000 INTER.UNIT PO QAM Hydrochlorothiazide (Hydrochlorothiazide), 12.5 MG PO DAILY Insulin Isophane (Human) (Novolin N Relion), 10 UNITS SQ QPM Isosorbide Mononitrate Ext Rel (Imdur Ext Rel), 30 MG PO DAILY Losartan Potassium (Losartan Potassium), 25 MG PO DAILY Omeprazole (Prilosec), 20 MG PO QAM Scheduled PRN Tramadol/Acetaminophen (Ultracet), 1 TAB PO TID PRN for Pain Allergies Coded Allergies: Lisinopril (Verified Allergy, Unknown, HIVES, 03/31/17) Lovastatin (Verified Allergy, Unknown, LEG CRAMPS, 03/31/17) Rofecoxib (Verified Allergy, Unknown, UNKNOWN, 03/31/17) Simvastatin (Verified Allergy, Unknown, LEG CRAMPS, 03/31/17) Methadone (Verified Adverse Reaction, Unknown, HALUCINATIONS, AGITATION, HEADACHES, 03/31/17) Physical Exam Vital Signs Date Time Temp Pulse Resp B/P (MAP) Pulse Ox O2 Delivery O2 Flow Rate FiO2 03/31/17 19:33 203/88 95 03/31/17 17:32 200/78 03/31/17 17:14 86 16 227/95 95 Room Air 03/31/17 15:44 63 20 210/86 96 Room Air 214/89 03/31/17 14:55 66 16 228/81 95 Room Air 198/97 03/31/17 13:43 68 18 208/75 95 Room Air 78 183/102 73 194/77 03/31/17 13:40 67 6/5/17 13:30 95 Room Air 03/31/17 13:15 36.3 70 20 198/83 95 Room Air Physical Exam GENERAL: alert, sitting up in bed, disheveled, well appearing, well nourished, no acute distress, non-toxic EYE EXAM: normal conjunctiva, PERRL and EOM's intact, no nystagmus OROPHARYNX: no exudate, no erythema, lips, buccal mucosa, and tongue normal and mucous membranes are moist NECK: supple, no nuchal rigidity, no adenopathy, non-tender LUNGS: Clear to auscultation. Normal chest wall mechanics HEART: no murmurs, S1 normal and S2 normal ABDOMEN: abdomen soft, non-tender, normo-active bowel sounds, no masses, no rebound or guarding. BACK: Back is symmetrical on inspection and there is no deformity, no midline tenderness, no CVA tenderness. SKIN: no rashes and no bruising UPPER EXTREMITIES: upper extremities are grossly normal. LOWER EXTREMITIES: No pitting edema. NEURO EXAM: Normal sensorium, cranial nerves II-XII intact, normal speech, no weakness of arms, no weakness of legs. No drift. Finger to nose intact. Gross sensation intact. Medical Decision & Procedures ER Provider Diagnostic Interpretation: Radiology results as stated below per my review and the radiologist's interpretation: SINGLE VIEW CHEST FINDINGS: An AP, portable, upright chest radiograph is compared to study dated 03/19/2017. The examination is degraded by portable technique and patient rotation. The heart is mildly enlarged. The pulmonary vasculature is noncongested. Chronic interstitial thickening is similar to previous. Atelectasis is noted at the left lung base. Lungs and pleural spaces are otherwise clear. No pneumothorax is seen. The skeletal structures are osteopenic. The bony thorax is grossly intact. IMPRESSION: Mild cardiac enlargement with no acute cardiopulmonary abnormality. Electronically signed by: Cleveland Otoole M.D. 03/31/2017 2:53 PM Dictated Date/Time: 03/31/2017 2:[address] HEAD WITHOUT CONTRAST (CT) FINDINGS: No intra or extra-axial mass lesions are visualized. There is no CT evidence of acute cortical infarction. There is no evidence of midline shift. There is no acute hemorrhage. No calvarial fractures are visualized. There are moderate white matter hypodensities likely on a small vessel basis. There is no evidence of pathologic ventricular dilatation. There is bilateral maxilla sinus mucosal thickening. There is complete opacification of the right sphenoid sinus. There are multiple opacified ethmoid air cells. There is near complete opacification left frontal sinus. IMPRESSION: 1. Progressive pansinus disease 2. Otherwise no acute intracranial findings Electronically signed by: Darren Campos M.D. 03/31/2017 2:41 PM Dictated Date/Time: 03/31/2017 2:[address] FINDINGS: Progressive increase in opacification of the left central frontal sinus, ethmoid air cells, as well as the left and to lesser extent right maxillary sinus. Soft tissue occlusion of the ostiomeatal units bilaterally. Polypoid and hyperplastic changes the nasal turbinates. No evidence for bony destructive process. All findings are at least mildly progressive compared to the prior exam. A previously placed left antral window is opacified and/or occluded. The mastoid air cells are clear. The nasal septum is midline. The orbits are unremarkable. IMPRESSION: 1. Progressive opacification of the bulk of the sinuses as described. 2. The ostiomeatal units as well as left antral window are soft tissue occluded. 3. All findings are progressive compared to the prior exam. Electronically signed by: Rufus Pham M.D. 03/31/2017 6:13 PM Dictated Date/Time: 03/31/2017 6:10 PM Brain MRI WITHOUT CONTRAST FINDINGS: Diffusion-weighted images show no evidence for an acute ischemic event. Findings of generalized moderate cerebellar as well as cerebral atrophy. Considerable chronic small vessel change. Mild progressive opacification of the sinuses. No evidence of midline shift. IMPRESSION: 1. No acute intracranial abnormality. 2. No evidence for an acute ischemic event. 3. Atrophy and chronic small vessel change somewhat progressive compared to the prior study 2014 4. Mildly progressive sinus change compared to the prior exam. Electronically signed by: Rufus Pham M.D. 03/31/2017 6:36 PM Dictated Date/Time: 03/31/2017 6:34 PM Laboratory Results 03/31/17 13:36 Red Blood Count 4.29, Mean Corpuscular Volume 91.4, Mean Corpuscular Hemoglobin 28.7, Mean Corpuscular Hemoglobin Concent 31.4, Mean Platelet Volume 9.5, Neutrophils (%) (Auto) 64.4, Lymphocytes (%) (Auto) 23.7, Monocytes (%) (Auto) 8.7, Eosinophils (%) (Auto) 1.9, Basophils (%) (Auto) 0.4, Neutrophils # (Auto) 4.46, Lymphocytes # (Auto) 1.64, Monocytes # (Auto) 0.60, Eosinophils # (Auto) 0.13, Basophils # (Auto) 0.03 03/31/17 13:36 Test 03/31/17 00:00 03/31/17 13:36 Urine Color YELLOW Urine Appearance CLEAR (CLEAR) Urine pH 5.5 (4.5-7.5) Urine Specific Isabella 1.015 (1.000-1.030) Urine Protein 2+ (NEG) Urine Glucose (UA) NEG (NEG) Urine Ketones NEG (NEG) Urine Occult Blood TRACE (NEG) Urine Nitrite NEG (NEG) Urine Bilirubin NEG (NEG) Urine Urobilinogen NEG (NEG) Urine Leukocyte Esterase NEG (NEG) Urine WBC (Auto) 0 /hpf (0-5) Urine RBC (Auto) 0-4 /hpf (0-4) Urine Hyaline Casts (Auto) 0 /lpf (0-5) Urine Epithelial Cells (Auto) 0-5 /lpf (0-5) Urine Bacteria (Auto) NEG (NEG) White Blood Count 6.92 K/uL (4.8-10.8) Red Blood Count 4.29 M/uL (4.7-6.1) Hemoglobin 12.3 g/dL (14.0-18.0) Hematocrit 39.2 % (42-52) Mean Corpuscular Volume 91.4 fL (80-100) Mean Corpuscular Hemoglobin 28.7 pg (25-34) Mean Corpuscular Hemoglobin Concent 31.4 g/dl (32-36) Platelet Count 247 K/uL (130-400) Mean Platelet Volume 9.5 fL (7.4-10.4) Neutrophils (%) (Auto) 64.4 % Lymphocytes (%) (Auto) 23.7 % Monocytes (%) (Auto) 8.7 % Eosinophils (%) (Auto) 1.9 % Basophils (%) (Auto) 0.4 % Neutrophils # (Auto) 4.46 K/uL (1.4-6.5) Lymphocytes # (Auto) 1.64 K/uL (1.2-3.4) Monocytes # (Auto) 0.60 K/uL (0.11-0.59) Eosinophils # (Auto) 0.13 K/uL (0-0.5) Basophils # (Auto) 0.03 K/uL (0-0.2) RDW Standard Deviation 49.3 fL (36.4-46.3) RDW Coefficient of Variation 14.7 % (11.5-14.5) Immature Granulocyte % (Auto) 0.9 % Immature Granulocyte # (Auto) 0.06 K/uL (0.00-0.02) Anion Gap 7.0 mmol/L (3-11) Estimated GFR () 23.5 Estimated GFR (Non- 20.2 BUN/Creatinine Ratio 15.2 (10-20) Calcium Level 8.4 mg/dl (8.5-10.1) Total Bilirubin 0.3 mg/dl (0.2-1) Direct Bilirubin < 0.1 mg/dl (0-0.2) Aspartate Amino Transf (AST/SGOT) 16 U/L (15-37) Alanine Aminotransferase (ALT/SGPT) 21 U/L (12-78) Alkaline Phosphatase 76 U/L (45-117) Total Protein 8.1 gm/dl (6.4-8.2) Albumin 3.7 gm/dl (3.4-5.0) Thyroid Stimulating Hormone (TSH) 0.998 uIu/ml (0.300-4.500) Laboratory results per my review. Medications Administered Medications (Trade) Dose Ordered Sig/Sloan Route Start Time Stop Time Status Last Admin Dose Admin Sodium Chloride 500 ml @ 999 mls/hr Q31M STAT IV 03/31/17 14:25 03/31/17 14:55 DC 03/31/17 14:49 999 MLS/HR Ampicillin Sodium/ Sulbactam Sodium 3000 mg/Sodium Chloride 108 ml @ 200 mls/hr NOW STAT IV 03/31/17 15:59 03/31/17 16:31 DC 03/31/17 16:22 200 MLS/HR Carvedilol (Coreg Tab) 12.5 mg NOW STAT PO 03/31/17 16:13 03/31/17 16:14 DC 03/31/17 16:22 12.5 MG Carvedilol (Coreg Tab) 12.5 mg NOW ONCE PO 03/31/17 16:45 03/31/17 16:46 DC 03/31/17 16:48 12.5 MG Labetalol HCl (Normodyne IV) 10 mg ONE STAT IV 03/31/17 17:21 03/31/17 17:23 DC 03/31/17 17:32 10 MG Dexamethasone Sodium Phosphate 2 mg/Syringe 0.5 ml @ 1 mls/min ONE STAT IV 03/31/17 18:15 03/31/17 18:18 DC 03/31/17 18:15 1 MLS/MIN ECG Indication: chest pain Rate (beats per minute): 67 Rhythm: sinus rhythm Findings: left axis deviation, no ectopy ED Course ED COURSE: Vital signs were reviewed and showed hypertension. The patients medical record was reviewed The above diagnostic studies were performed and reviewed. ED treatments and interventions as stated above. 1420: The patient was evaluated in room A12 after the medical center representative, Dr. Von Antonio, evaluated the patient. A complete history and physical examination was performed. 1425: Ordered Sodium Chloride 500 ml @ 999 mls/hr IV 1610: I reassessed the patient. He states that the double vision is only present when he looks down. He is still hypertensive. He informed me that he did not take his afternoon medications today. 1613: Ordered Coreg Tab 12.5 mg PO 1645: Ordered Coreg Tab 12.5 mg PO 1721: Ordered Labetalol HCl 10 mg IV 1730: Upon reevaluation, the patient is resting comfortably. Dr. Von Antonio discussed the patient's case with Dr. Malhotra - Neurology and Dr. Juan - ENT. He also discussed the patient's case with Dr. Werner - [facility] and he is going to evaluate the patient for further management. I discussed our findings with the patient and he understands and agrees with the treatment plan. Based on the patients age, coexisting illnesses, exam and lab findings the decision to treat as an inpatient was made. The patient remained stable while under my care. The patient will be evaluated for further management. Medical Decision Differential diagnosis includes etiologies such as benign positional vertigo, dehydration, hypovolemia, anemia, tumor, infection, hypoglycemia, electrolyte abnormalities, cardiac sources, intracerebral event, toxicologic, neurologic, as well as others were entertained. Medication Reconciliation: I attest that I have personally reviewed the patient' s current medication list. Blood pressure screening: Patient was found to have an elevated blood pressure and was referred to their primary doctor for recheck and further treatment. Patient is an 81-year-old male who presents the ER for difficulty ambulating associated with double vision. Patient was seen in combination with the resident and evaluated independently. Initially on exam his symptoms have completely resolved and is completely neurologically intact. [place] through his evaluation he notes that he is now only seen double when he looks down. Labs were unremarkable with the exception of a chronic elevation in his creatinine. CT head shows pansinusitis. He remained persistent hypertensive on the ER and was given his home oral medication which was doubled here. Following this his blood pressure still remained elevated and he was given a dose of labetalol. Case was discussed with neurology and ENT. Neurology recommended MRI and ENT recommended CT of the sinuses along with IV antibiotics and admission. Patient was given IV antibiotics with steroids and admitted to internal medicine for diplopia associated with pansinusitis and hypertension. Impression Primary Impression: Diplopia Additional Impressions: Sinusitis Hypertension Nos Chronic Kidney Disease, Unspecified Scribe Attestation The scribe's documentation has been prepared under my direction and personally reviewed by me in its entirety. I confirm that the note above accurately reflects all work, treatment, procedures, and medical decision making performed by me. Departure Information Dispostion Being Evaluated By Hospitalist Von Ewing M.D. 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
[2017-03-31] MEDS: INSULIN ASPART 100 UNITS/ML 3 ML PEN SC SCH (21:00)
[2017-03-31] MEDS ORDERED: INSULIN HUMAN NPH SQ SCH (21:00)
[2017-03-31] MEDS: HydrALAZINE HCL 20 MG/ML VIAL IV. PRN (21:11)
[2017-03-31] MEDS ORDERED: SODIUM CHLORIDE 0.9% 1000ML 1,000 ML IV SCH (21:15)
[2017-03-31] MEDS: HYDROCODONE/ACETAMOPHEN 5/325MG TAB PO PRN (21:24)
[2017-03-31 21:26] VITALS: BP 178/73; PULSE 77; TEMP 37.1; O2SAT 92
[2017-03-31] MEDS ORDERED: AMPICILLIN/SULBACTAM CONSULT ACTIVE PRN ×2 (21:30)
[2017-03-31 22:22] LABS: PROTHROMBIN TIME (PATIENT) 10.7 SECONDS (9.0-12.0)
[2017-03-31] MEDS: FLUTICASONE PROPIONATE NA SPR 16 GM BTL SCH (22:33)
[2017-03-31] MEDS: CARVEDILOL 12.5 MG TAB PO SCH (22:34)
[2017-03-31] MEDS: NITROGLYCERIN OINT 2% 1GM PACKET EXT SCH (22:36)
[2017-03-31] MEDS: DICLOFENAC SOD 1% GEL 100 GM TUBE EXT SCH (22:37)
[2017-03-31 23:29] VITALS: BP 177/72; PULSE 72; TEMP 37; O2SAT 91
[2017-03-31 23:46] VITALS: BP 152/72; PULSE 71; TEMP 36.7; O2SAT 93
[2017-03-31 23:59] VITALS: O2SAT 93
[2017-04-01] VITALS (10 sets, daily range): BP systolic 143–211; BP diastolic 68–88; PULSE 65–75; TEMP 36.4–37; O2SAT 91–95
[2017-04-01] MEDS: HYDROCODONE/ACETAMOPHEN 5/325MG TAB PO PRN ×5 (01:13→23:33)
[2017-04-01] MEDS: AMPICILLIN/SULBACTAM SOD INJ 3,000 MG in SODIUM CHLORIDE 0.9% 100ML 100 ML IV SCH ×2 (04:13→16:15)
[2017-04-01] MEDS: NITROGLYCERIN OINT 2% 1GM PACKET EXT SCH ×4 (05:27→23:29)
[2017-04-01] MEDS: HEPARIN SOD 5000 UNIT/0.5 ML CARP SQ SCH ×3 (05:28→21:19)
[2017-04-01] MEDS: ASPIRIN 81 MG ECTAB PO SCH (07:24)
[2017-04-01] MEDS: DOCUSATE SODIUM 100 MG CAP PO SCH ×2 (07:24→20:04)
[2017-04-01] MEDS: CARVEDILOL 12.5 MG TAB PO SCH ×2 (07:24→20:04)
[2017-04-01] MEDS: ISOSORBIDE MONONITRATE 60 MG TABCR PO SCH (07:24)
[2017-04-01] MEDS: LIDODERM (LIDOCAINE) PATCH 5% TD SCH (07:25)
[2017-04-01] MEDS: PANTOprazole SOD 40 MG TAB PO SCH (07:25)
[2017-04-01] MEDS: POLYETHYLENE (MIRALAX) 17 GM PACK PO SCH (07:25)
[2017-04-01] MEDS: CHOLECALCIFEROL 1000 INTER.UNIT TAB PO SCH (07:25)
[2017-04-01] MEDS: DICLOFENAC SOD 1% GEL 100 GM TUBE EXT SCH ×2 (07:26→20:05)
[2017-04-01] MEDS: FLUTICASONE PROPIONATE NA SPR 16 GM BTL SCH ×2 (07:26→20:04)
[2017-04-01] MEDS: HydrALAZINE HCL 20 MG/ML VIAL IV. PRN (07:31)
[2017-04-01] MEDS: INSULIN ASPART 100 UNITS/ML 3 ML PEN SC SCH ×4 (07:55→21:18)
[2017-04-01 08:24] LABS: HEMATOCRIT 34.6 % (42-52); MEAN CELL VOLUME 90.3 fL (80-100); MEAN CORPUSCULAR HEMOGLOBIN 29.8 pg (25-34); MEAN CORPUSCULAR HGB CONC 32.9 g/dl (32-36); MEAN PLATELET VOLUME 9.3 fL (7.4-10.4); PLATELET COUNT 203 K/uL (130-400); RED BLOOD COUNT 3.83 M/uL (4.7-6.1); WHITE BLOOD COUNT 7.44 K/uL (4.8-10.8)
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
[2017-04-01] MEDS ORDERED: NON-FORMULARY MEDICATION (Hydrochlorothiazide 12.5 MG) PO SCH (09:00)
[2017-04-01] MEDS ORDERED: ISOSORBIDE MONONITRATE 30 MG TABCR PO SCH (09:00)
[2017-04-01] MEDS ORDERED: ACARBOSE 50 MG TAB PO SCH (09:00)
[2017-04-01] MEDS ORDERED: LOSARTAN POTASSIUM 25 MG TAB PO SCH (09:00)
[2017-04-01 09:03] LABS: BUN/CREATININE RATIO 17.2 (10-20); CREATININE 2.6 mg/dl (0.60-1.40); POTASSIUM 4.3 mmol/L (3.5-5.1)
[2017-04-01 09:22] LABS: CALCIUM 8.3 mg/dl (8.5-10.1)
[2017-04-01] MEDS ORDERED: LORAZEPAM 0.5 MG TAB ONE (16:26)
[2017-04-01] MEDS ORDERED: NURSING VERBAL MED ORDER ONE (16:45)
--- NOTE | 2017-04-01 17:44 | Family Medicine Progress Note ---
Progress Note Date of Service Apr 01, 2017. Subjective Pt evaluation today including: conversation w/ patient, physical exam, chart review, conversation w/ wardrobe image consultant, review of inpatient medication list Pain: over the left temporal area PO Intake: good Voiding: no voiding problems, no incontinence Patient with no acute events overnight He says that he is still seeing double when he looks around the room. He also says that his sinuses are still painful with more being on the left than the right. He also was saying this afternoon that he his annoyed that there are so many people in his room asking him so many questions. He was very irritable this afternoon and said he wanted to be left alone. He still has a mild headache. He denies any fevers, night sweats, chills, confusion, leg weakness, arm weakness, slurred speech, dysphagia. He denies any abdominal pain, dysuria, diarrhea or sore back Additional Comments: Please see note for ROS Medications Current Inpatient Medications Medications (Trade) Dose Ordered Sig/Sloan Route Start Time Stop Time Status Last Admin Dose Admin Heparin Sodium (Porcine) (Heparin Sq 5000 Unit/0.5ml) 5,000 unit Q8H SQ 04/01/17 06:00 05/01/17 05:59 04/01/17 13:07 5,000 UNIT Acetaminophen (Tylenol Tab) 650 mg Q4H PRN PO 03/31/17 19:15 04/30/17 19:14 Al Hydrox/Mg Hydrox/Simethicone (Maalox Max Susp) 15 ml Q4H PRN PO 03/31/17 19:15 04/30/17 19:14 Magnesium Hydroxide (Milk Of Magnesia Susp) 30 ml Q6H PRN PO 03/31/17 19:15 04/30/17 19:14 Ondansetron HCl (Zofran Inj) 4 mg Q6H PRN IV 03/31/17 19:15 04/30/17 19:14 Aspirin (Ecotrin Tab) 81 mg QAM PO 04/01/17 09:00 05/01/17 08:59 04/01/17 07:24 81 MG Carvedilol (Coreg Tab) 12.5 mg BID PO 03/31/17 21:00 04/30/17 20:59 04/01/17 07:24 12.5 MG Cholecalciferol (Vitamin D Tab) 2,000 inter.unit QAM PO 04/01/17 09:00 05/01/17 08:59 04/01/17 07:25 2,000 INTER.UNIT Tramadol/ Acetaminophen (Ultracet Tab) 1 tab TID PRN PO 03/31/17 19:15 04/30/17 19:14 Pantoprazole Sodium (Protonix Tab) 40 mg QAM PO 04/01/17 09:00 05/01/17 08:59 04/01/17 07:25 40 MG Glucagon (Glucagon Inj) 1 mg UD PRN SQ 03/31/17 19:15 04/30/17 19:14 Glucose (Glucose 40% Gel) UD PRN PO 03/31/17 19:15 04/30/17 19:14 Glucose (Glucose Chew Tab) 1 tabs UD PRN PO 03/31/17 19:15 04/30/17 19:14 Insulin Aspart (novoLOG ASPART) SLIDING SCALE If C... ACHS SC 03/31/17 21:00 04/30/17 20:59 04/01/17 17:12 4 UNITS Isosorbide Mononitrate (Imdur Ext Rel Tab) 60 mg DAILY PO 04/01/17 09:00 05/01/17 08:59 04/01/17 07:24 60 MG Lidocaine (Lidoderm Patch 5%) 1 patch QAM TD 04/01/17 09:00 05/01/17 08:59 04/01/17 07:25 1 PATCH Miscellaneous (Remove Lidoderm Patch) 1 ea DAILY@21 N/A 03/31/17 21:00 04/30/17 20:59 03/31/17 21:00 1 EA Diclofenac Sodium (Voltaren 1% Top Gel) 1 appln BID EXT 03/31/17 21:00 04/30/17 20:59 03/31/17 22:37 1 APPLN Nitroglycerin (Nitroglycerin 2% Oint) 1 inch Q6 EXT 03/31/17 22:00 04/30/17 21:59 04/01/17 17:13 1 INCH Acetaminophen/ Hydrocodone Bitart ([place] 5/325 Tab) 1 tab Q4H PRN PO 03/31/17 19:30 04/14/17 19:29 04/01/17 13:06 1 TAB Fluticasone Propionate (Flonase Nasal [place]) 2 sprays BID NA 03/31/17 21:00 04/30/17 20:59 04/01/17 07:26 2 SPRAYS Azithromycin 500 mg/Dextrose 255 ml @ 125 mls/hr DAILY@2100 IV 04/01/17 21:00 04/10/17 20:59 Ampicillin Sodium/ Sulbactam Sodium 3000 mg/Sodium Chloride 108 ml @ 200 mls/hr Q12H IV 04/01/17 04:00 04/11/17 03:59 04/01/17 16:15 200 MLS/HR Hydralazine HCl (HydrALAZINE INJ) 10 mg Q4H PRN IV. 03/31/17 21:00 04/30/17 20:59 04/01/17 07:31 10 MG Polyethylene (Miralax Powder Packet) 17 gm QAM PO 04/01/17 09:00 05/01/17 08:59 Docusate Sodium (coLACE CAP) 100 mg BID PO 04/01/17 09:00 05/01/17 08:59 04/01/17 07:24 100 MG Ampicillin Sodium/ Sulbactam Sodium (Consult) 1 ea UD PRN N/A 03/31/17 21:30 04/30/17 21:29 Miscellaneous Information (Order Awaiting Action) 1 ea QS N/A 03/31/17 21:45 04/30/17 21:44 Objective Vital Signs Date Time Temp Pulse Resp B/P (MAP) Pulse Ox O2 Delivery O2 Flow Rate FiO2 04/01/17 16:00 Room Air 04/01/17 15:16 36.4 69 16 173/73 (106) 92 Room Air 04/01/17 12:00 Room Air 04/01/17 11:31 36.6 74 16 147/69 (95) 93 Room Air 04/01/17 09:12 143/68 (93) 04/01/17 08:09 172/74 (106) 04/01/17 08:00 Room Air 04/01/17 07:23 36.7 75 16 206/79 (121) 94 Room Air 211/88 (129) 04/01/17 04:33 36.6 69 18 164/73 (103) 92 Room Air 04/01/17 04:00 93 Room Air 03/31/17 23:59 93 Room Air 03/31/17 23:46 36.7 71 18 152/72 (98) 93 Room Air 03/31/17 21:26 37.1 77 22 178/73 (108) 92 Room Air 03/31/17 20:33 36.6 70 18 213/92 95 Room Air 03/31/17 19:33 203/88 95 Physical Exam General Appearance: WD/WN, no apparent distress Eyes: PERRL, sclerae normal, + abnormal EOM (unable to adduct the right eye ( right lateral rectus muscle)) ENT: pharynx normal, + pertinent finding (sinus tenderness on left episcopalian, patient is also hard of hearing) Neck: supple, no JVD, no carotid bruits, trachea midline Respiratory/Chest: lungs clear, normal breath sounds, no respiratory distress, no accessory muscle use Cardiovascular: regular rate, rhythm, no edema, no murmur Abdomen: normal bowel sounds, non tender, soft Extremities: non-tender, normal inspection, no calf tenderness, normal capillary refill Neurologic/Psychiatric: alert, oriented x 3 Laboratory Results Results Past 24 Hours Test 03/31/17 20:40 04/01/17 06:46 04/01/17 08:14 04/01/17 11:02 Range/Units Bedside Glucose 171 201 203 70-99 mg/dl White Blood Count 7.44 4.8-10.8 K/uL Red Blood Count 3.83 4.7-6.1 M/uL Hemoglobin 11.4 14.0-18.0 g/dL Hematocrit 34.6 42-52 % Mean Corpuscular Volume 90.3 80-100 fL Mean Corpuscular Hemoglobin 29.8 25-34 pg Mean Corpuscular Hemoglobin Concent 32.9 32-36 g/dl RDW Standard Deviation 48.3 36.4-46.3 fL RDW Coefficient of Variation 14.7 11.5-14.5 % Platelet Count 203 130-400 K/uL Mean Platelet Volume 9.3 7.4-10.4 fL Sodium Level 141 136-145 mmol/L Potassium Level 4.3 3.5-5.1 mmol/L Chloride Level 106 98-107 mmol/L Carbon Dioxide Level 22 21-32 mmol/L Anion Gap 13.0 3-11 mmol/L Blood Urea Nitrogen 45 7-18 mg/dl Creatinine 2.60 0.60-1.40 mg/dl Est Creatinine Clear Calc Drug Dose 25.1 ml/min Estimated GFR () 25.7 Estimated GFR (Non- 22.1 BUN/Creatinine Ratio 17.2 10-20 Random Glucose 232 70-99 mg/dl Calcium Level 8.3 8.5-10.1 mg/dl Assessment and Plan 81 year old male with PMHx DMII, CKD, HTN, chronic back pain and h/o falls admitted with diplopia with pansinus disease confirmed on imaging, as well as hypertensive urgency. Diplopia - patient is unable to adduct right eye. this would indicate damage to the right lateral rectus muscle however on imaging most of the sinusitis appears to be worst on the left side. He had an MRI head which did not show any stroke. Will continue to contemplate what could be causing this - Started on IV Unasyn 3000mg q6h and IV azithromycin 500mg daily for atypical coverage for pansinusitis - patient was seen by Dr. Juan and he will be doing a clean out of his sinuses on or Friday - Is also using flonase nasal spray bid HTN - Hold losartan and HCTz due to renal function - Continue carvedilol 12.5mg BID - Imdur increased to 60mg in the morning - IV hydralazine 10mg PRN sBP>180 or dBP >110 Mild GILDARDO - Creatinine 2.6 (baseline in last year 2.1-2.4) - IV fluids stopped as patient able to take adequate oral intake - Trend BMP Back pain - May be contributing to elevated BP - Ultracet 1 tab TID PRN - Started Voltaren gel, lidocaine patch and [place] PRN pain - PT/OT consulted DM - Continue acarbose, hold home insulin while in hospital - ISS with BGS ac/hs Constipation - Scheduled Miralax and Colace daily GERD - Protonix 20mg VTE PPx - Hep SC DNR Resident Physician Supervision Note: I was present with PGY1 Dr. Russell Taylor during the history and exam. I discussed the case with the resident and agree with the findings and plan as documented in the note. Any exceptions or clarifications are listed here: none. During my visit he was quite agitated about "so many people asking me questions. " He only allowed me to perform a limited exam. Denied jaw pain. Headache pain is behind left eye. Denies temporally located pain. Continues with double vision. vitals - BPs labile and high no fever gen - irritable/agitated, NAD eyes - PERRL; extraocular muscles - he cannot abduct fully the right eye, otherwise EOMI; no nystagmus scalp - no tenderness over temporal arteries face - no droop; no obvious sinus swelling labs - cr 2.[address] with near watson-sinusitis; polyps present; osteomeatal complex obstructed MRI brain - NO stroke A/P: 1. severe sinus disease 2. 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 CKD stage 4 with superimposed acute kidney injury 6. headaches 7. diplopia 8. significant proteinuria - chronic cont IV unasyn MRV to r/o cavernous sinus thrombosis as cause of extraocular muscle issues and diplopia defer to ENT whether sinus disease could be contributing to diplopia no signs of JULIETA to suggest MS, Wernecke's, etc repeat labs am nasal steroids for polyps defer to ENT about whether surgery is commended better BP control; check for hyperaldo state with renin/fernando levels Documented By: Von Lee MD Continued [facility] stay due to: multiple IV medications needed
[2017-04-01] MEDS ORDERED: AZITHROMYCIN IV 500 MG in DEXTROSE 5% 250ML 250 ML IV SCH (21:00)
[2017-04-02] VITALS (7 sets, daily range): BP systolic 149–187; BP diastolic 71–81; PULSE 63–71; TEMP 36.4–36.7; O2SAT 92–95
[2017-04-02] MEDS: AMPICILLIN/SULBACTAM SOD INJ 3,000 MG in SODIUM CHLORIDE 0.9% 100ML 100 ML IV SCH ×2 (03:59→16:36)
[2017-04-02] MEDS: HydrALAZINE HCL 20 MG/ML VIAL IV. PRN ×2 (03:59→07:54)
[2017-04-02] MEDS: HYDROCODONE/ACETAMOPHEN 5/325MG TAB PO PRN ×4 (05:02→20:43)
[2017-04-02] MEDS: HEPARIN SOD 5000 UNIT/0.5 ML CARP SQ SCH ×3 (05:04→20:47)
[2017-04-02 06:34] LABS: HEMATOCRIT 34.3 % (42-52); MEAN CELL VOLUME 90.7 fL (80-100); MEAN CORPUSCULAR HEMOGLOBIN 29.9 pg (25-34); MEAN CORPUSCULAR HGB CONC 32.9 g/dl (32-36); MEAN PLATELET VOLUME 9.4 fL (7.4-10.4); PLATELET COUNT 185 K/uL (130-400); RED BLOOD COUNT 3.78 M/uL (4.7-6.1); WHITE BLOOD COUNT 6.41 K/uL (4.8-10.8)
--- NOTE | 2017-04-02 06:54 | DIAGNOSTIC IMAGING REPORT ---
MRV HEAD WITHOUT CONTRAST CLINICAL HISTORY: Dizziness, double vision, left orbital headache. Cranial nerve palsy. Possible cavernous sinus thrombosis. COMPARISON STUDY: MRI the brain dated 03/31/2017 FINDINGS: MR venography was performed. There are no findings to indicate dural venous sinus thrombosis. There is extensive paranasal sinus disease. IMPRESSION: 1. No evidence of dural venous sinus thrombosis 2. Extensive paranasal sinus disease. Electronically signed by: Darren Campos M.D. 04/02/2017 6:52 AM Dictated Date/Time: 04/02/2017 6:49 AM
[2017-04-02 07:12] LABS: BUN/CREATININE RATIO 16.2 (10-20); CALCIUM 7.9 mg/dl (8.5-10.1); CREATININE 2.7 mg/dl (0.60-1.40); POTASSIUM 4.1 mmol/L (3.5-5.1)
[2017-04-02] MEDS: POLYETHYLENE (MIRALAX) 17 GM PACK PO SCH (07:45)
[2017-04-02] MEDS: FLUTICASONE PROPIONATE NA SPR 16 GM BTL SCH ×2 (07:45→20:43)
[2017-04-02] MEDS: PANTOprazole SOD 40 MG TAB PO SCH (07:45)
[2017-04-02] MEDS: LIDODERM (LIDOCAINE) PATCH 5% TD SCH (07:45)
[2017-04-02] MEDS: CARVEDILOL 12.5 MG TAB PO SCH (07:46)
[2017-04-02] MEDS: ISOSORBIDE MONONITRATE 60 MG TABCR PO SCH (07:46)
[2017-04-02] MEDS: CHOLECALCIFEROL 1000 INTER.UNIT TAB PO SCH (07:46)
[2017-04-02] MEDS: ASPIRIN 81 MG ECTAB PO SCH (07:46)
[2017-04-02] MEDS: DOCUSATE SODIUM 100 MG CAP PO SCH ×2 (07:47→20:46)
[2017-04-02] MEDS: INSULIN ASPART 100 UNITS/ML 3 ML PEN SC SCH ×4 (07:50→20:47)
[2017-04-02] MEDS: DICLOFENAC SOD 1% GEL 100 GM TUBE EXT SCH ×2 (07:53→20:44)
--- NOTE | 2017-04-02 11:19 | Family Medicine Progress Note ---
Progress Note Date of Service Apr 02, 2017. Subjective Pt evaluation today including: conversation w/ patient, conversation w/ family , chart review, lab review, conversation w/ alliance consultant, review of inpatient medication list Pain: none PO Intake: good Voiding: no voiding problems Patient with no acute events overnight He did say sorry for being very mad at everyone yesterday night and he said that it was just a very bad day for him and that he was very anxious. He is still having temporal headaches and he still is having double vision. He denies any fevers, night sweats, chills, nausea, vomiting, nasal drainage, neck stiffness, confusion, chest pain, shortness of breath or palpitations. MRI venogram came back as negative for dural venous thrombosis Additional Comments: Please see note for ROS Medications Current Inpatient Medications Medications (Trade) Dose Ordered Sig/Sloan Route Start Time Stop Time Status Last Admin Dose Admin Heparin Sodium (Porcine) (Heparin Sq 5000 Unit/0.5ml) 5,000 unit Q8H SQ 04/01/17 06:00 05/01/17 05:59 04/02/17 05:04 5,000 UNIT Acetaminophen (Tylenol Tab) 650 mg Q4H PRN PO 03/31/17 19:15 04/30/17 19:14 Al Hydrox/Mg Hydrox/Simethicone (Maalox Max Susp) 15 ml Q4H PRN PO 03/31/17 19:15 04/30/17 19:14 Magnesium Hydroxide (Milk Of Magnesia Susp) 30 ml Q6H PRN PO 03/31/17 19:15 04/30/17 19:14 Ondansetron HCl (Zofran Inj) 4 mg Q6H PRN IV 03/31/17 19:15 04/30/17 19:14 Aspirin (Ecotrin Tab) 81 mg QAM PO 04/01/17 09:00 05/01/17 08:59 04/02/17 07:46 81 MG Carvedilol (Coreg Tab) 12.5 mg BID PO 03/31/17 21:00 04/30/17 20:59 04/02/17 07:46 12.5 MG Cholecalciferol (Vitamin D Tab) 2,000 inter.unit QAM PO 04/01/17 09:00 05/01/17 08:59 04/02/17 07:46 2,000 INTER.UNIT Tramadol/ Acetaminophen (Ultracet Tab) 1 tab TID PRN PO 03/31/17 19:15 04/30/17 19:14 04/02/17 07:45 1 TAB Pantoprazole Sodium (Protonix Tab) 40 mg QAM PO 04/01/17 09:00 05/01/17 08:59 04/02/17 07:45 40 MG Glucagon (Glucagon Inj) 1 mg UD PRN SQ 03/31/17 19:15 04/30/17 19:14 Glucose (Glucose 40% Gel) UD PRN PO 03/31/17 19:15 04/30/17 19:14 Glucose (Glucose Chew Tab) 1 tabs UD PRN PO 03/31/17 19:15 04/30/17 19:14 Insulin Aspart (novoLOG ASPART) SLIDING SCALE If C... ACHS SC 03/31/17 21:00 04/30/17 20:59 04/02/17 07:50 3 UNITS Isosorbide Mononitrate (Imdur Ext Rel Tab) 60 mg DAILY PO 04/01/17 09:00 05/01/17 08:59 04/02/17 07:46 60 MG Lidocaine (Lidoderm Patch 5%) 1 patch QAM TD 04/01/17 09:00 05/01/17 08:59 04/02/17 07:45 1 PATCH Miscellaneous (Remove Lidoderm Patch) 1 ea DAILY@21 N/A 03/31/17 21:00 04/30/17 20:59 04/01/17 20:05 1 EA Diclofenac Sodium (Voltaren 1% Top Gel) 1 appln BID EXT 03/31/17 21:00 04/30/17 20:59 04/01/17 20:05 1 APPLN Acetaminophen/ Hydrocodone Bitart ([place] 5/325 Tab) 1 tab Q4H PRN PO 03/31/17 19:30 04/14/17 19:29 04/02/17 05:02 1 TAB Fluticasone Propionate (Flonase Nasal [place]) 2 sprays BID NA 03/31/17 21:00 04/30/17 20:59 04/02/17 07:45 2 SPRAYS Ampicillin Sodium/ Sulbactam Sodium 3000 mg/Sodium Chloride 108 ml @ 200 mls/hr Q12H IV 04/01/17 04:00 04/11/17 03:59 04/02/17 03:59 200 MLS/HR Hydralazine HCl (HydrALAZINE INJ) 10 mg Q4H PRN IV. 03/31/17 21:00 04/30/17 20:59 04/02/17 07:54 10 MG Polyethylene (Miralax Powder Packet) 17 gm QAM PO 04/01/17 09:00 05/01/17 08:59 04/02/17 07:45 17 GM Docusate Sodium (coLACE CAP) 100 mg BID PO 04/01/17 09:00 05/01/17 08:59 04/02/17 07:47 100 MG Ampicillin Sodium/ Sulbactam Sodium (Consult) 1 ea UD PRN N/A 03/31/17 21:30 04/30/17 21:29 Miscellaneous Information (Order Awaiting Action) 1 ea QS N/A 03/31/17 21:45 04/30/17 21:44 Objective Vital Signs Date Time Temp Pulse Resp B/P (MAP) Pulse Ox O2 Delivery O2 Flow Rate FiO2 04/02/17 08:01 36.4 67 18 185/72 (109) 95 Room Air 04/02/17 08:00 Room Air 04/02/17 05:01 182/72 (108) 04/02/17 04:00 Room Air 04/02/17 03:50 36.4 63 18 187/81 (116) 93 Room Air 04/02/17 00:01 Room Air 04/01/17 23:29 37.0 72 1 177/72 (107) 91 Room Air 04/01/17 20:09 36.4 65 20 145/72 (96) 93 Room Air 04/01/17 20:00 Room Air 04/01/17 18:59 36.7 66 20 170/71 (104) 95 Room Air 04/01/17 16:00 Room Air 04/01/17 15:16 36.4 69 16 173/73 (106) 92 Room Air 04/01/17 12:00 Room Air 04/01/17 11:31 36.6 74 16 147/69 (95) 93 Room Air Physical Exam General Appearance: WD/WN, no apparent distress Eyes: PERRL, + pertinent finding (still unable to adduct right eye) ENT: pharynx normal, + pertinent finding (hard of hearing) Respiratory/Chest: no respiratory distress, no accessory muscle use, + rhonchi (diffuse rhonchi bilaterally) Cardiovascular: regular rate, rhythm, no edema, no JVD, no murmur Abdomen: normal bowel sounds, non tender, soft Neurologic/Psychiatric: alert, normal mood/affect, oriented x 3 Laboratory Results Results Past 24 Hours Test 04/01/17 16:24 04/01/17 18:29 04/01/17 20:47 04/02/17 06:15 Range/Units Bedside Glucose 156 168 70-99 mg/dl White Blood Count 6.41 4.8-10.8 K/uL Red Blood Count 3.78 4.7-6.1 M/uL Hemoglobin 11.3 14.0-18.0 g/dL Hematocrit 34.3 42-52 % Mean Corpuscular Volume 90.7 80-100 fL Mean Corpuscular Hemoglobin 29.9 25-34 pg Mean Corpuscular Hemoglobin Concent 32.9 32-36 g/dl RDW Standard Deviation 49.2 36.4-46.3 fL RDW Coefficient of Variation 14.8 11.5-14.5 % Platelet Count 185 130-400 K/uL Mean Platelet Volume 9.4 7.4-10.4 fL Erythrocyte Sedimentation Rate 21 0-14 mm/hr Test 04/02/17 06:18 04/02/17 06:43 04/02/17 11:02 Range/Units Sodium Level 140 136-145 mmol/L Potassium Level 4.1 3.5-5.1 mmol/L Chloride Level 106 98-107 mmol/L Carbon Dioxide Level 26 21-32 mmol/L Anion Gap 8.0 3-11 mmol/L Blood Urea Nitrogen 44 7-18 mg/dl Creatinine 2.70 0.60-1.40 mg/dl Est Creatinine Clear Calc Drug Dose 24.2 ml/min Estimated GFR () 24.5 Estimated GFR (Non- 21.1 BUN/Creatinine Ratio 16.2 10-20 Random Glucose 143 70-99 mg/dl Calcium Level 7.9 8.5-10.1 mg/dl Bedside Glucose 137 70-99 mg/dl Assessment and Plan 81 year old male with PMHx DMII, CKD, HTN, chronic back pain and h/o falls admitted with diplopia with pansinus disease confirmed on imaging, as well as hypertensive urgency. Diplopia - patient is unable to adduct right eye. this would indicate damage to the right lateral rectus muscle however on imaging most of the sinusitis appears to be worst on the left side. He had an MRI head which did not show any stroke. - could be possible having the 6th nerve palsy due uncontrolled T2 DM, will get HBA1c - MRI venogram was negative fo dural venous thrombosis but did show extensive paranasal sinus disease - Started on IV Unasyn 3000mg q6h and IV azithromycin 500mg daily for atypical coverage for pansinusitis - patient was seen by Dr. Juan and he will be doing a clean out of his sinuses on or Friday - Is also using flonase nasal spray bid - ESR ordered and was 21 HTN - Hold losartan and HCTz due to renal function - Increase carvedilol to 25 BID - Imdur 60mg - Stopped PRN hydralazine and started 25mg bid - renin and aldosterone still pending Acute on Chronic kidney disease (stage 4) - Creatinine 2.7 - IV fluids stopped as patient able to take adequate oral intake - Trend BMP Back pain - May be contributing to elevated BP - Ultracet 1 tab TID PRN - Started Voltaren gel, lidocaine patch and [place] PRN pain - PT/OT consulted DM - Ordered HbA1c - Continue acarbose, hold home insulin while in hospital - ISS with BGS ac/hs Constipation - Scheduled Miralax and Colace daily GERD - Protonix 20mg VTE PPx - Hep SC DNR Resident Physician Supervision Note: I was present with PGY1 Dr. Russell Taylor during the history and exam. I discussed the case with the resident and agree with the findings and plan as documented in the note. Any exceptions or clarifications are listed here: none. Still w/ headache (left frontal area) but improving. Less agitated today. Tele normal overnight. Still w/ double vision. vitals - BPs labile and high no fever gen - NAD, more calm today eyes - PERRL; extraocular muscles - he cannot abduct fully the right eye, ? difficulty abducting the left eye? scalp - no tenderness over temporal arteries face - no droop; no obvious sinus swelling heart - RRR lungs - mild bibasilar rales abd - soft, NT ext - no edema labs - MRV w/o cavernous sinus thrombosis A/P: 1. severe sinus disease 2. 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 CKD stage 4 with superimposed acute kidney injury 6. headaches possibly due to sinusitis 7. diplopia 8. significant proteinuria - chronic cont IV unasyn; ok to stop azithromycin (likely not to add much benefit on top of unasyn) spoke with Dr. Juan - sinus surgery deferred until BP is under better control repeat labs in AM ophtho consult due to ongoing double vision w/o good etiology Documented By: Von Lee MD Continued [facility] stay due to: multiple IV medications needed
--- NOTE | 2017-04-02 12:35 | Clinical Documentation Query ---
CLINICAL DOCUMENTATION QUERY 81 year old male who presents to the Emergency Room with complaints of intermittent double vision In your clinical opinion is this patient being managed for: ( x ) CKD stage 4 (x ) Other explanation of clinical findings (Please Explain) ( ) Unable to determine (Please Define) ( ) Need to Discuss ( ) Not Agree The medical record reflects the following clinical findings, treatment, and risk factors. Clinical Indicators: BUN 44, Creatinine 2.70, GFR 21.1 Treatment: daily PRP's monitoring Risk Factors: Age, HTN, diabetes. Please clarify and document your clinical opinion in the progress notes and discharge summary. Terms such as "probable", "suspected", "likely", "questionable", "possible", or "still to be ruled out" are acceptable. IF IN AGREEMENT, YOU MUST DOCUMENT ABOVE DIAGNOSTIC STATEMENT IN DAILY PROGRESS NOTES AND DISCHARGE SUMMARY. This document is not part of the patient's record. Thank You, Eitan Atwood, RN [phone]
[2017-04-02 13:01] LABS: ESTIMATED AVERAGE GLUCOSE 183 mg/dl; HA1C FLAG Normal (Normal)
[2017-04-02] MEDS ORDERED: BUMETANIDE IV 1 MG in SYRINGE 0 ML IV ONE (17:15)
[2017-04-02] MEDS: CARVEDILOL 25 MG TAB PO SCH (20:45)
[2017-04-03] VITALS (10 sets, daily range): BP systolic 148–218; BP diastolic 61–92; PULSE 65–74; TEMP 36.3–36.8; O2SAT 90–96
[2017-04-03] MEDS: AMPICILLIN/SULBACTAM SOD INJ 3,000 MG in SODIUM CHLORIDE 0.9% 100ML 100 ML IV SCH (04:37)
[2017-04-03] MEDS: HYDROCODONE/ACETAMOPHEN 5/325MG TAB PO PRN (04:37)
[2017-04-03] MEDS: HEPARIN SOD 5000 UNIT/0.5 ML CARP SQ SCH ×2 (06:16→14:00)
[2017-04-03 07:11] LABS: HEMATOCRIT 35.9 % (42-52); MEAN CELL VOLUME 90.9 fL (80-100); MEAN CORPUSCULAR HEMOGLOBIN 28.4 pg (25-34); MEAN CORPUSCULAR HGB CONC 31.2 g/dl (32-36); MEAN PLATELET VOLUME 9.2 fL (7.4-10.4); PLATELET COUNT 204 K/uL (130-400); RED BLOOD COUNT 3.95 M/uL (4.7-6.1); WHITE BLOOD COUNT 5.84 K/uL (4.8-10.8)
[2017-04-03 07:48] LABS: BUN/CREATININE RATIO 16.3 (10-20); CALCIUM 8.2 mg/dl (8.5-10.1); CREATININE 2.9 mg/dl (0.60-1.40); POTASSIUM 4.4 mmol/L (3.5-5.1)
[2017-04-03] MEDS: ISOSORBIDE MONONITRATE 60 MG TABCR PO SCH (07:49)
[2017-04-03] MEDS: CARVEDILOL 25 MG TAB PO SCH ×2 (07:49→21:18)
[2017-04-03] MEDS: CHOLECALCIFEROL 1000 INTER.UNIT TAB PO SCH (07:49)
[2017-04-03] MEDS: ASPIRIN 81 MG ECTAB PO SCH (07:50)
[2017-04-03] MEDS: PANTOprazole SOD 40 MG TAB PO SCH (07:50)
[2017-04-03] MEDS: DOCUSATE SODIUM 100 MG CAP PO SCH ×2 (07:50→21:14)
[2017-04-03] MEDS: FLUTICASONE PROPIONATE NA SPR 16 GM BTL SCH ×2 (07:50→21:13)
[2017-04-03] MEDS: POLYETHYLENE (MIRALAX) 17 GM PACK PO SCH (07:51)
[2017-04-03] MEDS: DICLOFENAC SOD 1% GEL 100 GM TUBE EXT SCH ×2 (07:51→21:16)
[2017-04-03] MEDS: LIDODERM (LIDOCAINE) PATCH 5% TD SCH (07:52)
[2017-04-03] MEDS: INSULIN ASPART 100 UNITS/ML 3 ML PEN SC SCH ×4 (07:54→21:00)
[2017-04-03] MEDS ORDERED: HydrALAZINE HCL 20 MG/ML VIAL IV. STA (08:44)
--- NOTE | 2017-04-03 10:49 | Family Medicine Progress Note ---
Progress Note Date of Service Apr 03, 2017. Subjective Pt evaluation today including: conversation w/ patient, physical exam, chart review, conversation w/ international travel consultant, review of inpatient medication list Pain: none PO Intake: good Voiding: no voiding problems Patient with no acute events overnight He is still having double vision but his headache has been improving. He also has a dry cough. His sinus tenderness has improved a lot also. He denies any nausea, vomiting, fevers, night sweats, chills, nasal drainage, ear pain, chest pain, cough, palpitations, shortness of breath, abdominal pain, diarrhea or constipation. Additional Comments: Please see above note for ROS Medications Current Inpatient Medications Medications (Trade) Dose Ordered Sig/Sloan Route Start Time Stop Time Status Last Admin Dose Admin Heparin Sodium (Porcine) (Heparin Sq 5000 Unit/0.5ml) 5,000 unit Q8H SQ 04/01/17 06:00 05/01/17 05:59 04/03/17 06:16 5,000 UNIT Acetaminophen (Tylenol Tab) 650 mg Q4H PRN PO 03/31/17 19:15 04/30/17 19:14 Al Hydrox/Mg Hydrox/Simethicone (Maalox Max Susp) 15 ml Q4H PRN PO 03/31/17 19:15 04/30/17 19:14 Magnesium Hydroxide (Milk Of Magnesia Susp) 30 ml Q6H PRN PO 03/31/17 19:15 04/30/17 19:14 Ondansetron HCl (Zofran Inj) 4 mg Q6H PRN IV 03/31/17 19:15 04/30/17 19:14 Aspirin (Ecotrin Tab) 81 mg QAM PO 04/01/17 09:00 05/01/17 08:59 04/03/17 07:50 81 MG Cholecalciferol (Vitamin D Tab) 2,000 inter.unit QAM PO 04/01/17 09:00 05/01/17 08:59 04/03/17 07:49 2,000 INTER.UNIT Tramadol/ Acetaminophen (Ultracet Tab) 1 tab TID PRN PO 03/31/17 19:15 04/30/17 19:14 04/02/17 07:45 1 TAB Pantoprazole Sodium (Protonix Tab) 40 mg QAM PO 04/01/17 09:00 05/01/17 08:59 6/8/17 07:50 40 MG Glucagon (Glucagon Inj) 1 mg UD PRN SQ 03/31/17 19:15 04/30/17 19:14 Glucose (Glucose 40% Gel) UD PRN PO 03/31/17 19:15 04/30/17 19:14 Glucose (Glucose Chew Tab) 1 tabs UD PRN PO 03/31/17 19:15 04/30/17 19:14 Insulin Aspart (novoLOG ASPART) SLIDING SCALE If C... ACHS SC 03/31/17 21:00 04/30/17 20:59 04/03/17 07:54 3 UNITS Isosorbide Mononitrate (Imdur Ext Rel Tab) 60 mg DAILY PO 04/01/17 09:00 05/01/17 08:59 04/03/17 07:49 60 MG Lidocaine (Lidoderm Patch 5%) 1 patch QAM TD 04/01/17 09:00 05/01/17 08:59 04/03/17 07:52 1 PATCH Miscellaneous (Remove Lidoderm Patch) 1 ea DAILY@21 N/A 03/31/17 21:00 04/30/17 20:59 04/02/17 20:44 1 EA Diclofenac Sodium (Voltaren 1% Top Gel) 1 appln BID EXT 03/31/17 21:00 04/30/17 20:59 04/03/17 07:51 1 APPLN Acetaminophen/ Hydrocodone Bitart (Riley 5/325 Tab) 1 tab Q4H PRN PO 03/31/17 19:30 04/14/17 19:29 04/03/17 04:37 1 TAB Fluticasone Propionate (Flonase Nasal Clarks) 2 sprays BID NA 03/31/17 21:00 04/30/17 20:59 04/03/17 07:50 2 SPRAYS Ampicillin Sodium/ Sulbactam Sodium 3000 mg/Sodium Chloride 108 ml @ 200 mls/hr Q12H IV 04/01/17 04:00 04/11/17 03:59 04/03/17 04:37 200 MLS/HR Polyethylene (Miralax Powder Packet) 17 gm QAM PO 04/01/17 09:00 05/01/17 08:59 04/03/17 07:51 17 GM Docusate Sodium (coLACE CAP) 100 mg BID PO 04/01/17 09:00 05/01/17 08:59 04/03/17 07:50 100 MG Ampicillin Sodium/ Sulbactam Sodium (Consult) 1 ea UD PRN N/A 03/31/17 21:30 04/30/17 21:29 Miscellaneous Information (Order Awaiting Action) 1 ea QS N/A 03/31/17 21:45 04/30/17 21:44 Hydralazine HCl (Apresoline Tab) 25 mg BID PO 04/02/17 21:00 05/02/17 20:59 04/03/17 07:49 25 MG Carvedilol (Coreg Tab) 25 mg BID PO 04/02/17 21:00 04/30/17 20:59 04/03/17 07:49 25 MG Objective Vital Signs Date Time Temp Pulse Resp B/P (MAP) Pulse Ox O2 Delivery O2 Flow Rate FiO2 04/03/17 09:30 148/76 (100) 04/03/17 08:00 92 Room Air 04/03/17 07:56 36.5 65 16 215/92 (133) 92 Room Air 218/81 (126) 04/03/17 04:00 36.3 67 20 182/79 (113) 93 Room Air 04/03/17 04:00 Room Air 04/03/17 00:31 36.5 69 18 168/72 (104) 92 Room Air 04/03/17 00:00 Room Air 04/02/17 20:10 Room Air 04/02/17 19:32 36.5 71 20 149/72 (97) 93 Room Air 04/02/17 16:49 36.7 66 16 177/76 (109) 93 Room Air 04/02/17 16:00 Room Air 04/02/17 12:32 36.4 67 16 159/71 (100) 92 Room Air 04/02/17 12:00 Room Air Physical Exam General Appearance: WD/WN, no apparent distress Eyes: PERRL, sclerae normal, + pertinent finding (unable to adduct the right eye) ENT: hearing grossly normal, pharynx normal, + pertinent finding (no sinus tenderness) Neck: no adenopathy Respiratory/Chest: lungs clear, normal breath sounds, no accessory muscle use Cardiovascular: regular rate, rhythm, no gallop, no JVD, no murmur Abdomen: normal bowel sounds, non tender, soft Neurologic/Psychiatric: alert, normal mood/affect, oriented x 3 Laboratory Results Results Past 24 Hours Test 04/02/17 11:20 04/02/17 11:26 04/02/17 16:30 04/02/17 20:41 Range/Units Estimated Average Glucose 183 mg/dl Hemoglobin A1c 8.0 4.5-5.6 % Bedside Glucose 167 127 125 70-99 mg/dl Test 04/03/17 06:30 04/03/17 06:54 Range/Units Bedside Glucose 124 70-99 mg/dl White Blood Count 5.84 4.8-10.8 K/uL Red Blood Count 3.95 4.7-6.1 M/uL Hemoglobin 11.2 14.0-18.0 g/dL Hematocrit 35.9 42-52 % Mean Corpuscular Volume 90.9 80-100 fL Mean Corpuscular Hemoglobin 28.4 25-34 pg Mean Corpuscular Hemoglobin Concent 31.2 32-36 g/dl RDW Standard Deviation 50.1 36.4-46.3 fL RDW Coefficient of Variation 14.8 11.5-14.5 % Platelet Count 204 130-400 K/uL Mean Platelet Volume 9.2 7.4-10.4 fL Sodium Level 141 136-145 mmol/L Potassium Level 4.4 3.5-5.1 mmol/L Chloride Level 105 98-107 mmol/L Carbon Dioxide Level 26 21-32 mmol/L Anion Gap 10.0 3-11 mmol/L Blood Urea Nitrogen 47 7-18 mg/dl Creatinine 2.90 0.60-1.40 mg/dl Est Creatinine Clear Calc Drug Dose 22.4 ml/min Estimated GFR () 22.5 Estimated GFR (Non- 19.4 BUN/Creatinine Ratio 16.3 10-20 Random Glucose 122 70-99 mg/dl Calcium Level 8.2 8.5-10.1 mg/dl Assessment and Plan 81 year old male with PMHx DMII, CKD, HTN, chronic back pain and h/o falls admitted with diplopia with pansinus disease confirmed on imaging, as well as hypertensive urgency. Diplopia - patient is unable to adduct right eye. this would indicate damage to the right lateral rectus muscle however on imaging most of the sinusitis appears to be worst on the left side. He had an MRI head which did not show any stroke. - could be possible having the 6th nerve palsy due uncontrolled T2 DM, Hba1c was 8 - MRI venogram was negative fo dural venous thrombosis but did show extensive paranasal sinus disease - On IV Unasyn 3000mg q6h for pansinusitis - patient was seen by Dr. Juan and he will be doing a clean out of his sinuses on Friday - Is also using flonase nasal spray bid HTN (very difficult to treat) - Hold losartan and HCTz due to renal function - Increase carvedilol to 25 BID - Imdur 60mg - Stopped PRN hydralazine and started 25mg bid - renin and aldosterone still pending - gave patient an extra dose of hydralazine 15mg IV to lower bp Acute on Chronic kidney disease (stage 4) - Creatinine 2.9 today and trending up - Will talk to Dr. Lee with regard to restarting IVF - IV fluids stopped as patient able to take adequate oral intake (patient says he is drinking 2 Litres/day) - Trend BMP Back pain - Ultracet 1 tab TID PRN - Started Voltaren gel, lidocaine patch and Riley PRN pain - Patient refused physical therapy DM - Hba1c is 8 - Acarbose and home insulin held while in hospital - ISS with BGS ac/hs Constipation - Scheduled Miralax and Colace daily GERD - Protonix 20mg VTE PPx - Hep SC Resident Physician Supervision Note: I was present with PGY1 Dr. Russell Taylor during the history and exam. I discussed the case with the resident and agree with the findings and plan as documented in the note. Any exceptions or clarifications are listed here: patient cannot abduct the right eye (and possibly left eye). Headaches improving. Appetite is improved. No new complaints. Still with diplopia. vitals - BPs still labile no fever gen - NAD eyes - cannot abduct fully the right eye, difficulty abducting the left eye ( slight) as well; PERRL heart - RRR lungs - CTA b/l abd - soft, NT ext - no edema labs - Cr 2.9 A/P: 1. severe sinus disease 2. 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 CKD stage 4 with mild superimposed acute kidney injury 6. headaches possibly due to sinusitis 7. diplopia - unclear etiology as MRI brain and MRV brain normal/negative 8. significant proteinuria - chronic stop unasyn, change to PO augmentin NPO after MN for sinus surgery tomorrow repeat labs in AM (BMP) ophtho consult due to ongoing double vision w/o good etiology consider thiamine deficiency contributing to extraocular muscle dysfunction; send thiamine level in am consider IVF Documented By: Von Lee MD Continued [facility] stay due to: multiple IV medications needed
[2017-04-03] MEDS ORDERED: HEPARIN SOD 5000 UNIT/0.5 ML CARP SQ SCH (14:00)
[2017-04-03] MEDS ORDERED: AMOXICILLIN/CLAVULANATE TAB 875 MG TAB PO SCH (17:00)
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
[2017-04-03] MEDS: AMOXICILLIN/CLAVULANATE TAB 500 MG TAB PO SCH (18:01)
--- NOTE | 2017-04-03 18:34 | Anesthesiology Progress Note ---
Anesthesia Progress Note Date of Service Apr 03, 2017. Progress Notes Pt is scheduled for endoscopic sinus surgery on 04/04/17. Pt is an 81M h/o HTN, hyperlipidemia, GERD, OA, DM with peripheral neuropathy, CKD, obesity, and LBP. Pt was admitted 2/2 diplopia and headaches x 5 days. Pt had hypertensive urgency on admission, which has been better controlled. Pt had a workup for CVA/ TIA with negative results. Pt was incidentally found to have pansinusitis. Pt's labwork and EKG were reviewed. Pt is an acceptable candidate for general anesthesia. Consent was obtained from the patient. All questions/concerns were addressed.
[2017-04-03 19:53] LABS: CALCIUM 8.3 mg/dl (8.5-10.1); CREATININE 3.3 mg/dl (0.60-1.40); POTASSIUM 4.6 mmol/L (3.5-5.1)
[2017-04-03] MEDS: SODIUM CHLORIDE 0.9% 1000ML 1,000 ML IV SCH (23:11)
[2017-04-04] MEDS: HYDROCODONE/ACETAMOPHEN 5/325MG TAB PO PRN ×2 (00:03→10:30)
[2017-04-04] MEDS: INSULIN ASPART 100 UNITS/ML 3 ML PEN SC SCH ×4 (06:30→21:28)
[2017-04-04] MEDS ORDERED: DEXAMETHASONE SOD INJ 4 MG/ML VIAL ONE (06:40)
[2017-04-04] MEDS ORDERED: ONDANSETRON INJ 2 MG/ML 2 ML VIAL ONE (06:40)
[2017-04-04] MEDS ORDERED: GLYCOPYRROLATE INJ 0.2 MG/ML VIAL ONE (06:40)
[2017-04-04] MEDS ORDERED: NEOSTIGMINE METHYLSULFATE 5 MG/5 ML SYR ONE (06:40)
[2017-04-04] MEDS ORDERED: PROPOFOL IV EMULSION 10 MG/ML 20 ML VIAL IV ONE (06:40)
[2017-04-04] MEDS ORDERED: ROCURONIUM BROMIDE 10 MG/ML 5 ML VIAL ONE (06:40)
[2017-04-04] MEDS ORDERED: MIDAZOLAM HCL 1 MG/ML 2ML VIAL ONE (06:41)
[2017-04-04] MEDS ORDERED: FENTANYL CITRATE INJ 50 MCG/1 ML 2 ML VIAL ONE (06:41)
[2017-04-04] MEDS ORDERED: TRIAMCINOLONE ACET 40 MG/ML VIAL ONE (07:06)
[2017-04-04] MEDS ORDERED: GELATIN SPONGE 12-7MM ONE (07:06)
[2017-04-04] MEDS ORDERED: LIDO 2%/EPINEPHRINE 1:100000 20 ML VIAL INFIL ONE (07:06)
[2017-04-04] MEDS ORDERED: EpINEphrine INJ 1MG/ML AMP 1 MG/ML AMP ONE (07:07)
[2017-04-04] MEDS ORDERED: LIDOCAINE 4% INH SOLN 4 ML BTL ONE (07:07)
[2017-04-04] MEDS ORDERED: BACITRACIN OINT 15 GM TUBE ONE (07:07)
--- NOTE | 2017-04-04 07:24 | History & Physical Bridge Note ---
H&P Re-Evaluation Bridge Note: I have examined the patient, reviewed the History & Physical and in the interval since the performance of the History & Physical I have noted the following changes of clinical significance: consult by Dr. Rodriguez showed possible lacunar infarct in brainstem causing diplopia, felt it was safe to proceed with surgery. I offer to postpone but the patient insisted on proceeding due to persistent long history of sinusitis/headaches. Discussed with Dr. Guerra who will monitor BP with A-line. Must watch BP postop and monitor for bleeding. But overall surgery can proceed.
[2017-04-04] MEDS ORDERED: ONDANSETRON INJ 2 MG/ML 2 ML VIAL IV PRN (07:45)
[2017-04-04] MEDS ORDERED: FENTANYL CITRATE INJ 50 MCG/1 ML 2 ML VIAL IV PRN (07:45)
[2017-04-04] MEDS ORDERED: ATROPINE SULFATE 0.1 MG/ML 5ML SYR IV PRN (07:45)
[2017-04-04] MEDS ORDERED: EpHEDrine SULFATE INJ 50 MG/ML AMP IV PRN (07:45)
[2017-04-04] MEDS ORDERED: PROMETHAZINE HCL INJ 6.25 MG in SODIUM CHLORIDE 0.9% 50ML 50 ML IV PRN (07:45)
[2017-04-04] MEDS ORDERED: ESMOLOL HCL 10 MG/ML 10 ML VIAL ONE (08:01)
[2017-04-04] MEDS ORDERED: SODIUM CHLORIDE 0.9% INJ 10 ML VIAL ONE (08:19)
[2017-04-04] MEDS ORDERED: HydrALAZINE HCL 20 MG/ML VIAL ONE (08:19)
[2017-04-04] MEDS ORDERED: HEMADERM ENT APPLICATOR KIT TOP ONE (08:50)
[2017-04-04] MEDS: POLYETHYLENE (MIRALAX) 17 GM PACK PO SCH (09:00)
[2017-04-04] MEDS: FLUTICASONE PROPIONATE NA SPR 16 GM BTL SCH ×2 (09:00→21:00)
[2017-04-04] MEDS ORDERED: LABETALOL HCL IV 5 MG/ML 20ML IV ONE ×2 (09:11→10:27)
--- NOTE | 2017-04-04 09:46 | Anesthesiology Progress Note ---
Anesthesia Post Op Note Date & Time Apr 04, 2017 at 09:45 Vital Signs Pain Intensity: 0 Vital Signs Past 12 Hours Date Time Temp Pulse Resp B/P (MAP) Pulse Ox O2 Delivery O2 Flow Rate FiO2 04/04/17 09:35 79 24 154/56 92 Mask 10 04/04/17 09:25 79 24 164/59 94 Mask 10 04/04/17 09:15 85 24 161/68 94 Mask 10 04/04/17 09:06 36.6 80 24 172/81 96 Mask 10 04/04/17 00:00 Room Air 04/03/17 23:12 36.8 74 22 171/73 (105) 90 Room Air Notes Mental Status: alert / awake / arousable, participated in evaluation Pt Amnestic to Procedure: Yes Nausea / Vomiting: adequately controlled Pain: adequately controlled Airway Patency, RR, SpO2: stable & adequate BP & HR: stable & adequate Hydration State: stable & adequate Anesthetic Complications: no major complications apparent BP treated with hydralazine and labetalol to goals of 170-190 systolic. No active bleeding from nares. BP management on floor per primary team.
--- NOTE | 2017-04-04 09:54 | OPERATIVE REPORT ---
DATE OF OPERATION: 04/04/2017 PREOPERATIVE DIAGNOSIS: Acute persistent sinusitis. POSTOPERATIVE DIAGNOSIS: Same. PROCEDURE: Right and left frontal, right and left sphenoid, right and left total ethmoid and right and left maxillary sinus antrostomy. SURGEON: Dr. Juan. ANESTHESIA: General endotracheal. COMPLICATIONS: None. BLOOD LOSS: 25 mL. HISTORY OF PRESENT ILLNESS: This is an 81-year-old gentleman with recurrent and chronic sinusitis for many years. For the whole past year, he has had a persistent sinus infection with headaches. The patient requested definitive treatment and understands the implications of the surgery in view of his medical status. DESCRIPTION OF PROCEDURE: The patient was brought to the operating room and placed in the supine position. General endotracheal anesthesia was induced. He was monitored with arterial line for his blood pressure. The [employer] device was calibrated and used during the entire procedure. The nose was decongested using topical cottonoids with a solution of 4 mL of 4% Xylocaine with 1 mL of epinephrine. Injection of 2% Xylocaine with 1:100,000 strength epinephrine was also used. The left sphenoid was cannulated with guidewire and dilated using the 6-mm balloon. Attention was turned to the right side. This side was filled with purulent material. This had to be dilated and then irrigated clean with saline with [employer] computer guidance. The right maxillary sinus could not be cannulated with the guidewire due to what appeared to be a previous turbinate resection or some other type of surgery causing the ostial stenosis. The left maxillary sinus was cannulated with guidewire and dilated using the 6-mm balloon. The right nasofrontal duct was cannulated with guidewire and dilated using the 6-mm balloon with [employer] computer guidance. The guidewire was left in place as a marker. Frontal sinusotomy was performed by removing the anterior wall and then the posterior wall of the agger nasi cell. Total ethmoidectomy was performed by removing the bullae ethmoidalis, going through the ground lamella into the posterior ethmoid air cells, delineating the posterior most ethmoid air cell along with the skull base and lamina papyracea and following these structures anteriorly exonerating all the posterior and all the anterior ethmoid air cells. These were all filled with purulent material and polyps and polypoid mucosa. The nasofrontal duct was then redilated and the guidewire was removed and the frontal sinus was irrigated clean with 60 mL of saline. The maxillary sinus was opened by finding it with the seeker and the pointer and then opening up the maxillary ostia with the seeker and with the shaver. Cultures were taken of the right maxillary sinus, which had purulent material and the maxillary sinus was irrigated clean with saline. The sphenoid was opened by removing polypoid tissue at the anterior face, at the inferior border of the superior turbinate. Left frontal sinusotomy, total ethmoidectomy, sphenoidotomy, and maxillary sinus antrostomy performed in similar manner. Propel stents were placed. HemaDerm powder was used for hemostasis. The patient tolerated the procedure well and was taken to recovery area in satisfactory condition. I attest to the content of the Intraoperative Record and any orders documented therein. Any exceptions are noted below. KAREN
[2017-04-04 10:28] VITALS: BP 168/70; PULSE 65; TEMP 36.7; O2SAT 96
[2017-04-04] MEDS: AMOXICILLIN/CLAVULANATE TAB 500 MG TAB PO SCH ×2 (10:29→17:46)
[2017-04-04] MEDS: ASPIRIN 81 MG ECTAB PO SCH (10:29)
[2017-04-04] MEDS: PANTOprazole SOD 40 MG TAB PO SCH (10:29)
[2017-04-04] MEDS: ISOSORBIDE MONONITRATE 60 MG TABCR PO SCH (10:29)
[2017-04-04] MEDS: DOCUSATE SODIUM 100 MG CAP PO SCH ×2 (10:29→21:22)
[2017-04-04] MEDS: CARVEDILOL 25 MG TAB PO SCH ×2 (10:30→21:22)
[2017-04-04] MEDS: CHOLECALCIFEROL 1000 INTER.UNIT TAB PO SCH (10:30)
[2017-04-04] MEDS: LIDODERM (LIDOCAINE) PATCH 5% TD SCH (10:31)
[2017-04-04] MEDS: DICLOFENAC SOD 1% GEL 100 GM TUBE EXT SCH ×2 (10:32→21:20)
[2017-04-04] MEDS: SODIUM CHLORIDE 0.9% 1000ML 1,000 ML IV SCH ×2 (10:35→21:28)
[2017-04-04] MEDS ORDERED: NURSING VERBAL MED ORDER ONE (11:15)
[2017-04-04] MEDS ORDERED: MoRPHine SULFATE 2 MG/ML CARP IV ONE (11:45)
--- NOTE | 2017-04-04 15:14 | Family Medicine Progress Note ---
Progress Note Date of Service Apr 04, 2017. Subjective Pt evaluation today including: conversation w/ patient, physical exam, chart review, conversation w/ oim consultant, review of inpatient medication list Pain: none Patient with no acute events overnight He went for his sinus surgery this morning with Dr. Juan Patient currently on 6 L after surgery, no difficulty breathing at the moment, no sinus pain but has a bit of a headache No fevers, night sweats or chills, no chest pain, palpitations, cough, leg pain/ swelling Additional Comments: Please see above for ROS Medications Current Inpatient Medications Medications (Trade) Dose Ordered Sig/Sloan Route Start Time Stop Time Status Last Admin Dose Admin Heparin Sodium (Porcine) (Heparin Sq 5000 Unit/0.5ml) 5,000 unit Q8H SQ 04/01/17 06:00 05/01/17 05:59 Future hold 04/03/17 06:16 5,000 UNIT Acetaminophen (Tylenol Tab) 650 mg Q4H PRN PO 03/31/17 19:15 04/30/17 19:14 Al Hydrox/Mg Hydrox/Simethicone (Maalox Max Susp) 15 ml Q4H PRN PO 03/31/17 19:15 04/30/17 19:14 Magnesium Hydroxide (Milk Of Magnesia Susp) 30 ml Q6H PRN PO 03/31/17 19:15 04/30/17 19:14 Ondansetron HCl (Zofran Inj) 4 mg Q6H PRN IV 03/31/17 19:15 04/30/17 19:14 Aspirin (Ecotrin Tab) 81 mg QAM PO 04/01/17 09:00 05/01/17 08:59 04/04/17 10:29 81 MG Cholecalciferol (Vitamin D Tab) 2,000 inter.unit QAM PO 04/01/17 09:00 05/01/17 08:59 04/04/17 10:30 2,000 INTER.UNIT Tramadol/ Acetaminophen (Ultracet Tab) 1 tab TID PRN PO 03/31/17 19:15 04/30/17 19:14 04/02/17 07:45 1 TAB Pantoprazole Sodium (Protonix Tab) 40 mg QAM PO 04/01/17 09:00 05/01/17 08:59 04/04/17 10:29 40 MG Glucagon (Glucagon Inj) 1 mg UD PRN SQ 03/31/17 19:15 04/30/17 19:14 Glucose (Glucose 40% Gel) UD PRN PO 03/31/17 19:15 04/30/17 19:14 Glucose (Glucose Chew Tab) 1 tabs UD PRN PO 03/31/17 19:15 04/30/17 19:14 Insulin Aspart (novoLOG ASPART) SLIDING SCALE If C... ACHS SC 03/31/17 21:00 04/30/17 20:59 04/04/17 13:23 2 UNITS Isosorbide Mononitrate (Imdur Ext Rel Tab) 60 mg DAILY PO 04/01/17 09:00 05/01/17 08:59 04/04/17 10:29 60 MG Lidocaine (Lidoderm Patch 5%) 1 patch QAM TD 04/01/17 09:00 05/01/17 08:59 04/04/17 10:31 1 PATCH Miscellaneous (Remove Lidoderm Patch) 1 ea DAILY@21 N/A 03/31/17 21:00 04/30/17 20:59 04/03/17 21:16 1 EA Diclofenac Sodium (Voltaren 1% Top Gel) 1 appln BID EXT 03/31/17 21:00 04/30/17 20:59 04/04/17 10:32 1 APPLN Acetaminophen/ Hydrocodone Bitart ([place] 5/325 Tab) 1 tab Q4H PRN PO 03/31/17 19:30 04/14/17 19:29 04/04/17 10:30 1 TAB Fluticasone Propionate (Flonase Nasal [place]) 2 sprays BID NA 03/31/17 21:00 04/30/17 20:59 04/03/17 21:13 2 SPRAYS Polyethylene (Miralax Powder Packet) 17 gm QAM PO 04/01/17 09:00 05/01/17 08:59 04/03/17 07:51 17 GM Docusate Sodium (coLACE CAP) 100 mg BID PO 04/01/17 09:00 05/01/17 08:59 04/04/17 10:29 100 MG Miscellaneous Information (Order Awaiting Action) 1 ea QS N/A 03/31/17 21:45 04/30/17 21:44 Carvedilol (Coreg Tab) 25 mg BID PO 04/02/17 21:00 04/30/17 20:59 04/04/17 10:30 25 MG Amoxicillin/ Clavulanate Potassium (Augmentin Tab) 500 mg BIDM PO 04/03/17 17:00 04/13/17 16:59 04/04/17 10:29 500 MG Sodium Chloride 1,000 ml @ 75 mls/hr [id number] IV 04/03/17 21:15 05/03/17 21:14 04/04/17 10:35 75 MLS/HR Hydralazine HCl (Apresoline Tab) 50 mg TID PO 04/04/17 21:00 05/02/17 20:59 Albuterol/ Ipratropium (Duoneb) 3 ml ONE ONCE INH 04/04/17 15:00 04/04/17 15:01 UNV Objective Vital Signs Date Time Temp Pulse Resp B/P (MAP) Pulse Ox O2 Delivery O2 Flow Rate FiO2 04/04/17 10:30 Mask 10.0 04/04/17 10:28 36.7 65 20 168/70 (102) 96 Mask 10.0 04/04/17 09:35 79 24 154/56 92 Mask 10 04/04/17 09:25 79 24 164/59 94 Mask 10 04/04/17 09:15 85 24 161/68 94 Mask 10 04/04/17 09:06 36.6 80 24 172/81 96 Mask 10 04/04/17 00:00 Room Air 04/03/17 23:12 36.8 74 22 171/73 (105) 90 Room Air 04/03/17 20:00 Room Air 04/03/17 16:00 92 Room Air 04/03/17 15:18 36.6 67 16 165/61 (95) 92 Room Air Physical Exam General Appearance: WD/WN, no apparent distress, + obese, + pertinent finding ( patient with gauze underneath nose as he had nosebleed after surgery, has oxygen mask on) Eyes: + abnormal EOM (unable to adduct eyes bilaterally), + pertinent finding ENT: hearing grossly normal, pharynx normal, + pertinent finding (no sinus tenderness) Neck: supple, no JVD, no carotid bruits, trachea midline Respiratory/Chest: no respiratory distress, no accessory muscle use, + rhonchi (bilateral rhonchi) Cardiovascular: regular rate, rhythm, no JVD, no murmur Abdomen: normal bowel sounds, non tender, soft Extremities: non-tender, no pedal edema, no calf tenderness, normal capillary refill Neurologic/Psychiatric: alert, normal mood/affect, oriented x 3 Laboratory Results Results Past 24 Hours Test 04/03/17 16:11 04/03/17 19:21 04/03/17 20:37 04/04/17 09:17 Range/Units Bedside Glucose 153 133 159 70-99 mg/dl Sodium Level 141 136-145 mmol/L Potassium Level 4.6 3.5-5.1 mmol/L Chloride Level 105 98-107 mmol/L Carbon Dioxide Level 29 21-32 mmol/L Anion Gap 7.0 3-11 mmol/L Blood Urea Nitrogen 49 7-18 mg/dl Creatinine 3.30 0.60-1.40 mg/dl Est Creatinine Clear Calc Drug Dose 19.7 ml/min Estimated GFR () 19.2 Estimated GFR (Non- 16.6 BUN/Creatinine Ratio 15.0 10-20 Random Glucose 126 70-99 mg/dl Calcium Level 8.3 8.5-10.1 mg/dl Test 04/04/17 10:21 04/04/17 11:07 Range/Units Bedside Glucose 198 70-99 mg/dl Microbiology Results 04/04/17 Gram Stain - Final, Resulted 04/04/17 Bacterial Culture, Resulted Pending Assessment and Plan 81 year old male with PMHx DMII, CKD, HTN, chronic back pain and h/o falls admitted with diplopia with pansinus disease confirmed on imaging, as well as hypertensive urgency. Patient went for sinus surgery this morning. Surgery went well and patient in no acute distress after surgery. 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 Patient will likely go home tomorrow as long as blood pressure remains stable and patient does not have any issues post op. Diplopia (Differential includes brainstem stroke, microvascular disease, infectious process, uncontrolled diabetes) - patient is unable to adduct right eye and left eye. - Brain MRI and CT negative for stroke - MRI venogram was negative fo dural venous thrombosis but did show extensive paranasal sinus disease - On Augmentin PO - Optho saw patient and will follow with him as outpatient - Is also using flonase nasal spray bid HTN (very difficult to treat) - Hold losartan and HCTz due to renal function - Increase carvedilol to 25 BID - Imdur 60mg - Increase hydralazine to 50 TID - renin and aldosterone still pending Acute on Chronic kidney disease (stage 4) - Creatinine 3.3 today and trending up - Started patient on 100mls/hr - Trend BMP, repeat this afternoon Back pain - Ultracet 1 tab TID PRN - Started Voltaren gel, lidocaine patch and [place] PRN pain - Patient refused physical therapy DM - Hba1c is 8 - Acarbose and home insulin held while in hospital - ISS with BGS ac/hs Constipation - Scheduled Miralax and Colace daily GERD - Protonix 20mg VTE PPx - Hep SC Resident Physician Supervision Note: I was present with PGY1 Dr. Russell Taylor during the history and exam. I discussed the case with the resident and agree with the findings and plan as documented in the note. Any exceptions or clarifications are listed here: patient has limitation in abduction of both eyes. Saw the patient post-op from sinus surgery today. He stated "I feel better" (referring to sinuses and headaches). Despite requiring O2 he stated "I'm not short of breath." vitals - BPs still labile no fever gen - NAD, on oxymask eyes - cannot abduct fully the right eye, difficulty abducting the left eye as well; PERRL heart - RRR, s1, s2 lungs - course BS b/l with crackles bases and b/l rhonchi abd - soft, NT ext - no edema labs - Cr 3.2 A/P: 1. severe sinus disease s/p sinus surgery today by Dr. Juan. 2. nasal polyposis s/p polypectomy; cont nasal steroid. 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 4. malignant HTN/accelerated HTN with ongoing lability despite changes in meds ; renin/fernando levels pending. 5. CKD stage 4 with mild superimposed acute kidney injury - on IVF, creatinine scantly improved today. 6. headaches possibly due to sinusitis; sed rate is normal making temporal arteritis highly unlikely. 7. 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 8. significant proteinuria - chronic 9. acute hypoxic respiratory failure - cxr w/o infiltrates or edema - bronchospasm? aspiration? cont PO augmentin; treat 14 days due to severity and extent of his infection scheduled duonebs q6h for #9 repeat labs in AM add thiamine 200mg BID; thiamine level pending continue IVF but decrease to 50cc/hr updated Documented By: Von Lee MD
[2017-04-04 15:26] VITALS: PULSE 75; O2SAT 95
[2017-04-04] MEDS ORDERED: ALBUT/IPRATROP 3MG/0.5MG NEB 3 ML VIAL INH ONE (15:30)
[2017-04-04 16:00] VITALS: O2SAT 95
--- NOTE | 2017-04-04 16:23 | DIAGNOSTIC IMAGING REPORT ---
CHEST 2 VIEWS ROUTINE CLINICAL HISTORY: Difficulty breathing dyspnea COMPARISON STUDY: 03/31/2017 FINDINGS: Atelectasis versus minimal infiltrate left base. Lungs otherwise appear clear. Suboptimal visibility left hemidiaphragm. Pulmonary apices are clear. IMPRESSION: Atelectasis versus infiltrate left base. Electronically signed by: Rufus hPam M.D. 04/04/2017 4:21 PM Dictated Date/Time: 04/04/2017 4:21 PM
[2017-04-04 16:49] LABS: BUN/CREATININE RATIO 17.9 (10-20); CREATININE 3.2 mg/dl (0.60-1.40)
[2017-04-04 17:03] LABS: CALCIUM 8.1 mg/dl (8.5-10.1)
[2017-04-04 18:15] VITALS: BP 134/61; PULSE 63; O2SAT 6; O2SAT 95
[2017-04-04] MEDS: THIAMINE HCL 100 MG TAB PO SCH (21:28)
[2017-04-04] MEDS: INSULIN GLARGINE SOLOSTAR 100 UNITS/ML 3 ML PEN SC SCH (22:19)
[2017-04-04 23:02] VITALS: BP 144/69; PULSE 74; TEMP 36.7; O2SAT 94
[2017-04-05] VITALS (7 sets, daily range): BP systolic 149–171; BP diastolic 67–70; PULSE 61–90; TEMP 36.4–36.7; O2SAT 91–97
[2017-04-05] MEDS: ALBUT/IPRATROP 3MG/0.5MG NEB 3 ML VIAL INH SCH ×4 (06:59→19:26)
[2017-04-05 07:09] LABS: HEMATOCRIT 32.5 % (42-52); MEAN CORPUSCULAR HEMOGLOBIN 28.9 pg (25-34); MEAN CORPUSCULAR HGB CONC 31.7 g/dl (32-36); MEAN PLATELET VOLUME 9.3 fL (7.4-10.4); PLATELET COUNT 203 K/uL (130-400); RED BLOOD COUNT 3.57 M/uL (4.7-6.1); WHITE BLOOD COUNT 7.96 K/uL (4.8-10.8)
[2017-04-05 07:43] LABS: BUN/CREATININE RATIO 17.3 (10-20); CALCIUM 7.8 mg/dl (8.5-10.1); CREATININE 3.2 mg/dl (0.60-1.40); MAGNESIUM 2.1 mg/dl (1.8-2.4); POTASSIUM 4.7 mmol/L (3.5-5.1)
--- NOTE | 2017-04-05 08:06 | Family Medicine Progress Note ---
Progress Note Date of Service Apr 05, 2017. Subjective Pt evaluation today including: conversation w/ patient, conversation w/ family , physical exam, chart review, lab review, review of studies, conversation w/ internal control consultant, review of inpatient medication list Patient feeling much better, stating that he has felt better than he has in months. He claims his headaches have resolved and he is no longer experiencing diplopia. In fact, he was finally able to watch television today. His main complaint remains back pain, although the analgesia he is receiving has helped somewhat. He is also having significant issues with rest/sleep and is keen for home. He is having a wet-sounding cough since yesterday, which has gotten progressively worse, but he denies CP, SOB, palpitations, lightheadedness. He has been weaned off supplemental oxygen, and is saturating well on room air. He is tolerating diet, without nausea or vomiting. His last BM was day before yesterday, but constipation is a chronic issue for him. He denies issues with voiding. All Other Systems: Reviewed and Negative Objective Vital Signs Date Time Temp Pulse Resp B/P (MAP) Pulse Ox O2 Delivery O2 Flow Rate FiO2 04/05/17 06:59 61 16 97 Mask 3.0 04/05/17 00:00 Mask 3.0 04/04/17 23:02 36.7 74 20 144/69 (94) 94 Mask 3.0 04/04/17 18:15 63 18 134/61 (85) 95 Mask 6.0 04/04/17 16:00 95 Mask 6.0 04/04/17 15:26 75 18 95 Mask 7.0 04/04/17 10:30 Mask 10.0 04/04/17 10:28 36.7 65 20 168/70 (102) 96 Mask 10.0 04/04/17 09:35 79 24 154/56 92 Mask 10 04/04/17 09:25 79 24 164/59 94 Mask 10 04/04/17 09:15 85 24 161/68 94 Mask 10 04/04/17 09:06 36.6 80 24 172/81 96 Mask 10 Physical Exam General Appearance: WD/WN, no apparent distress Eyes: PERRL, sclerae normal, + pertinent finding (Inability to abduct eyes bilaterally) ENT: hearing grossly normal, pharynx normal, + pertinent finding (Left frontal sinus tenderness) Neck: supple, no adenopathy, thyroid normal Respiratory/Chest: no respiratory distress, no accessory muscle use, + crackles Cardiovascular: regular rate, rhythm, no edema, no JVD, no murmur Abdomen: normal bowel sounds, non tender, soft Extremities: normal inspection, no pedal edema, no calf tenderness Neurologic/Psychiatric: alert, normal mood/affect, oriented x 3 Skin: normal color, warm/dry, no rash Laboratory Results Results Past 24 Hours Test 04/04/17 20:19 04/05/17 06:45 04/05/17 07:33 04/05/17 11:13 Range/Units Bedside Glucose 205 151 117 70-99 mg/dl White Blood Count 7.96 4.8-10.8 K/uL Red Blood Count 3.57 4.7-6.1 M/uL Hemoglobin 10.3 14.0-18.0 g/dL Hematocrit 32.5 42-52 % Mean Corpuscular Volume 91.0 80-100 fL Mean Corpuscular Hemoglobin 28.9 25-34 pg Mean Corpuscular Hemoglobin Concent 31.7 32-36 g/dl RDW Standard Deviation 48.9 36.4-46.3 fL RDW Coefficient of Variation 14.6 11.5-14.5 % Platelet Count 203 130-400 K/uL Mean Platelet Volume 9.3 7.4-10.4 fL Sodium Level 141 136-145 mmol/L Potassium Level 4.7 3.5-5.1 mmol/L Chloride Level 107 98-107 mmol/L Carbon Dioxide Level 22 21-32 mmol/L Anion Gap 12.0 3-11 mmol/L Blood Urea Nitrogen 55 7-18 mg/dl Creatinine 3.20 0.60-1.40 mg/dl Est Creatinine Clear Calc Drug Dose 20.3 ml/min Estimated GFR () 20.0 Estimated GFR (Non- 17.2 BUN/Creatinine Ratio 17.3 10-20 Random Glucose 154 70-99 mg/dl Calcium Level 7.8 8.5-10.1 mg/dl Magnesium Level 2.1 1.8-2.4 mg/dl Test 04/05/17 16:11 04/05/17 19:54 Range/Units Bedside Glucose 127 131 70-99 mg/dl Assessment and Plan 81 year old male with PMHx DMII, CKD, HTN, chronic back pain and h/o falls admitted with diplopia with pansinus disease confirmed on imaging, as well as hypertensive urgency. Pansinus disease - s/p sinus surgery with Dr. Juan 04/04/17 - PO Augmentin - Flonase nasal spray BID - Cultures growing s.aureus - sensitivities pending Diplopia - Differential includes brainstem stroke, microvascular disease, infectious process, uncontrolled diabetes. Patient is unable to adduct right eye and left eye. 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 Brain MRI and CT negative for stroke. MRI venogram was negative fo dural venous thrombosis but did show extensive paranasal sinus disease - Started PO thiamine empirically (as deficiency can cause nystagmus, severe eye fatigue and neurodegeneration) - B1 levels pending - Outpatient follow up with ophtho HTN (refractory) - Hold losartan and HCTz due to renal function - Increase carvedilol to 25 BID - Imdur 60mg - Increase hydralazine to 50 TID - Added amlodipine 5mg daily - Renin and aldosterone still pending - If ongoing HTN, after max titration of amlodipine, can consider clonidine. Cough - CXR suggest atelectasis, but no pulm congestion - Duoneb - Mucinex - Incentive spirometry Acute on Chronic kidney disease (stage 4) - Peak Cr 3.3. Baseline Cr ~2.3 - Creatinine 3.2 today - Trend BMP Back pain - Ultracet 1 tab TID PRN - Started Voltaren gel, lidocaine patch and [place] PRN pain - Patient refused physical therapy DM - Hba1c is 8 - Acarbose and home insulin held while in hospital - ISS with BGS ac/hs Constipation - Scheduled Miralax and Colace daily GERD - Protonix 20mg VTE PPx - Hep SC Resident Physician Supervision Note: I was present with PGY1 Dr. Russell Taylor during the history and exam. I discussed the case with the resident and agree with the findings and plan as documented in the note. Any exceptions or clarifications are listed here: none. "Best I have felt in 3-4 months" he states. O2 weaned off, but has had worsening cough today. vitals - BPs still labile no fever gen - NAD, wet cough present eyes - cannot abduct fully the right eye, difficulty abducting the left eye as well; PERRL heart - RRR, s1, s2 lungs - course BS b/l with crackles bases abd - soft, NT ext - no edema labs - Cr 3.2 A/P: 1. severe sinus disease s/p sinus surgery by Dr. Juan, POD #1 - intraop sinus cx with staph aureus. 2. nasal polyposis s/p polypectomy; cont nasal steroid. 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 4. malignant HTN/accelerated HTN with ongoing lability despite changes in meds ; renin/fernando levels pending. agree with addition of norvasc. cont BB, imdur, hydralazine. 5. CKD stage 4 with mild superimposed acute kidney injury - stable, BMP in am. 6. headaches possibly due to sinusitis; sed rate is normal making temporal arteritis highly unlikely. Headaches MUCH improved s/p surgery for sinusitis and abx. 7. 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 Related to sinusitis? unclear but symptom IS improved. ophtho f/u after discharge. cont thiamine PO. 8. significant proteinuria - chronic 9. acute hypoxic respiratory failure - today's cxr w/o infiltrates or edema once again. no overt CHF. pulmonary toilet (mucinex, nebs, incentive gisele). updated d/c tomorrow if BPs controlled and final sinus culture has returned Documented By: Von Lee MD Continued [facility] stay due to: other Discharge planning: home Resident Tracking Resident Involvement: Resident Care Provided Care Provided: Adult Hospital Medicine
[2017-04-05] MEDS: INSULIN ASPART 100 UNITS/ML 3 ML PEN SC SCH ×4 (08:37→21:09)
[2017-04-05] MEDS: THIAMINE HCL 100 MG TAB PO SCH ×2 (08:38→21:00)
[2017-04-05] MEDS: ISOSORBIDE MONONITRATE 60 MG TABCR PO SCH (08:38)
[2017-04-05] MEDS: PANTOprazole SOD 40 MG TAB PO SCH (08:38)
[2017-04-05] MEDS: DOCUSATE SODIUM 100 MG CAP PO SCH ×2 (08:39→20:59)
[2017-04-05] MEDS: ASPIRIN 81 MG ECTAB PO SCH (08:39)
[2017-04-05] MEDS: CARVEDILOL 25 MG TAB PO SCH ×2 (08:39→21:01)
[2017-04-05] MEDS: CHOLECALCIFEROL 1000 INTER.UNIT TAB PO SCH (08:39)
[2017-04-05] MEDS: LIDODERM (LIDOCAINE) PATCH 5% TD SCH (08:40)
[2017-04-05] MEDS: POLYETHYLENE (MIRALAX) 17 GM PACK PO SCH (08:41)
[2017-04-05] MEDS: AMOXICILLIN/CLAVULANATE TAB 500 MG TAB PO SCH ×2 (08:41→17:40)
[2017-04-05] MEDS: DICLOFENAC SOD 1% GEL 100 GM TUBE EXT SCH ×2 (08:41→20:58)
[2017-04-05] MEDS: FLUTICASONE PROPIONATE NA SPR 16 GM BTL SCH ×2 (08:42→20:58)
[2017-04-05] MEDS ORDERED: SODIUM CHLORIDE 0.65% NA SOLN 45 ML (OCEAN) PRN (11:15)
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
[2017-04-05] MEDS: HYDROCODONE/ACETAMOPHEN 5/325MG TAB PO PRN (12:20)
[2017-04-05] MEDS ORDERED: AMLODIPINE BESYLATE 5 MG TAB PO ONE (14:30)
--- NOTE | 2017-04-05 17:41 | DIAGNOSTIC IMAGING REPORT ---
CHEST 2 VIEWS ROUTINE CLINICAL HISTORY: Crackles, rhonchorous breathing COMPARISON STUDY: Chest radiograph April 04, 2017. FINDINGS: Lung volumes are normal. There is no pneumothorax or pleural effusion. Linear left basilar opacity is suggestive of atelectasis. Cardiomediastinal silhouette is stable. There is a possible hiatal hernia. There is no evidence of pulmonary edema. IMPRESSION: 1. Linear left basilar opacity suggestive of atelectasis. 2. No evidence of pulmonary edema. Electronically signed by: Thiago Love M.D. 04/05/2017 5:40 PM Dictated Date/Time: 04/05/2017 5:38 PM
[2017-04-05] MEDS: GUAIFENESIN 600 MG TABCR PO SCH (21:00)
[2017-04-05] MEDS: INSULIN GLARGINE SOLOSTAR 100 UNITS/ML 3 ML PEN SC SCH (21:08)
[2017-04-06 06:31] LABS: HEMATOCRIT 32.9 % (42-52); MEAN CELL VOLUME 91.9 fL (80-100); MEAN CORPUSCULAR HEMOGLOBIN 29.1 pg (25-34); MEAN CORPUSCULAR HGB CONC 31.6 g/dl (32-36); MEAN PLATELET VOLUME 9.4 fL (7.4-10.4); PLATELET COUNT 200 K/uL (130-400); RED BLOOD COUNT 3.58 M/uL (4.7-6.1); WHITE BLOOD COUNT 7.59 K/uL (4.8-10.8)
[2017-04-06 06:57] VITALS: PULSE 77; O2SAT 92
[2017-04-06] MEDS: ALBUT/IPRATROP 3MG/0.5MG NEB 3 ML VIAL INH SCH ×2 (06:57→11:11)
[2017-04-06 07:08] LABS: BUN/CREATININE RATIO 20.1 (10-20); CALCIUM 8.1 mg/dl (8.5-10.1); POTASSIUM 4.7 mmol/L (3.5-5.1)
[2017-04-06 07:23] VITALS: BP_SYST 190; BP_SYST 194; BP_DIAS 69; BP_DIAS 74; PULSE 76; TEMP 36.4; O2SAT 90
--- NOTE | 2017-04-06 08:15 | Family Medicine Progress Note ---
Progress Note Date of Service Apr 06, 2017. Objective Vital Signs Date Time Temp Pulse Resp B/P (MAP) Pulse Ox O2 Delivery O2 Flow Rate FiO2 04/06/17 07:23 36.4 76 20 190/69 (109) 90 194/74 (114) 04/06/17 06:57 77 16 92 Room Air 04/06/17 00:00 Room Air Mask 04/05/17 23:45 36.7 80 20 160/70 (100) 91 Room Air 04/05/17 20:00 Room Air Mask 04/05/17 19:24 90 12 91 Room Air 04/05/17 16:00 Room Air 04/05/17 15:49 88 12 91 Room Air 04/05/17 14:35 36.4 65 20 149/67 (94) 91 04/05/17 11:18 71 16 93 Room Air Resident Tracking Resident Involvement: Resident Care Provided Care Provided: Adult Hospital Medicine
[2017-04-06] MEDS: AMOXICILLIN/CLAVULANATE TAB 500 MG TAB PO SCH (08:27)
[2017-04-06] MEDS: DICLOFENAC SOD 1% GEL 100 GM TUBE EXT SCH (08:28)
[2017-04-06] MEDS: FLUTICASONE PROPIONATE NA SPR 16 GM BTL SCH (08:28)
[2017-04-06] MEDS: DOCUSATE SODIUM 100 MG CAP PO SCH (08:29)
[2017-04-06] MEDS: ASPIRIN 81 MG ECTAB PO SCH (08:30)
[2017-04-06] MEDS: ISOSORBIDE MONONITRATE 60 MG TABCR PO SCH (08:30)
[2017-04-06] MEDS: CARVEDILOL 25 MG TAB PO SCH (08:30)
[2017-04-06] MEDS: GUAIFENESIN 600 MG TABCR PO SCH (08:31)
[2017-04-06] MEDS: LIDODERM (LIDOCAINE) PATCH 5% TD SCH (08:31)
[2017-04-06] MEDS: THIAMINE HCL 100 MG TAB PO SCH (08:31)
[2017-04-06] MEDS: CHOLECALCIFEROL 1000 INTER.UNIT TAB PO SCH (08:31)
[2017-04-06] MEDS: PANTOprazole SOD 40 MG TAB PO SCH (08:31)
[2017-04-06] MEDS: POLYETHYLENE (MIRALAX) 17 GM PACK PO SCH (08:32)
[2017-04-06] MEDS: INSULIN ASPART 100 UNITS/ML 3 ML PEN SC SCH ×2 (08:34→11:00)
[2017-04-06] MEDS ORDERED: AMLODIPINE BESYLATE 5 MG TAB PO SCH (09:00)
[2017-04-06] MEDS ORDERED: BISACODYL 10 MG SUPP PR STA (10:38)
[2017-04-06 11:11] VITALS: PULSE 79; O2SAT 92
[2017-04-06] MEDS ORDERED: MRLP17 PO (11:21)
[2017-04-06] MEDS ORDERED: THM100 PO (11:21)
[2017-04-06] MEDS ORDERED: ISOS30TA35 PO (11:21)
[2017-04-06] MEDS ORDERED: GFNSR600 PO (11:21)
[2017-04-06] MEDS ORDERED: CARV25TA2 PO (11:21)
[2017-04-06] MEDS ORDERED: NRV5 PO (11:21)
[2017-04-06] MEDS ORDERED: VLTG EXT (11:21)
[2017-04-06] MEDS ORDERED: APR25 PO (11:21)
[2017-04-06] MEDS ORDERED: FLNIN (11:21)
[2017-04-06] MEDS ORDERED: SALI0.6510 (11:21)
[2017-04-06] MEDS: AMLODIPINE BESYLATE 5 MG TAB PO SCH ×2 (11:34→14:19)
[2017-04-06] MEDS ORDERED: HYDR-5688 PO (11:41)
[2017-04-06] MEDS ORDERED: LDDP5 TD (11:46)
[2017-04-06] MEDS ORDERED: AMOX1TAB42 PO (11:46)
[2017-04-06] MEDS ORDERED: CLC100 PO (11:47)
[2017-04-06] MEDS ORDERED: MOMLX PO (13:39)
--- NOTE | 2017-04-06 13:58 | Discharge Instructions ---
Discharge Instructions Date of Service Apr 06, 2017. Admission Reason for Admission: Hypertensive Urgency Discharge Discharge Diagnosis / Problem: Pansinus disease, diplopia Discharge Goals Goal(s): Decrease discomfort, Improve function, Improve disease control, Diagnostic testing, Therapeutic intervention Activity Recommendations Activity Limitations: resume your previous activity . Instructions / Follow-Up Instructions / Follow-Up Pansinus disease - s/p sinus surgery with Dr. Juan 04/04/17 - On discharge, please complete 7 more days of antibiotic, Augmentin for a total 14 day course. Please complete all the medication, even if you are feeling better. - Use Flonase nasal spray twice daily every day Please, follow up with Dr. Juan on FridayApril 16 at 11:15 am. This office is located at [address] [facility] in [place]. The office phone number is [phone]. Diplopia - Please continue taking oral thiamine, as vitamin B1 deficiency can cause some eye problems. Your B1 levels are pending, but someone will call you when the levels return, hopefully by next week, to let you know if you should continue taking the vitamins or discontinue it. Please, follow up with Dr. Rodriguez (eye doctor) on FridayApril 18 at 1:00 pm. This office is located at [address] [place] [address] in [place]. The office phone number is [phone]. HTN (refractory) There has been a lot of changes made to your blood pressure medication. Losartan and hydrochlorothiazide have been stopped Carvedilol has been increased to 25 twice daily and Imdur has been increased to 60mg every day. Please take hydralazine 50mg three times per day and amlodipine 10mg daily Please follow up with Dr. Kam within the next week to recheck your blood pressure and kidney test. Please call into his office, to make an appointment Cough - Continue taking Mucinex for your cough and use the incentive spirometer to help exapnd your lungs. - If you are have trouble breathing, it would be advisable to talk to Dr. Kam about how to get a nebulizer machine and continue Duonebs (breathing treatment) Back pain - Ultracet has been discontinued. - Instead lidocaine patches have been prescribed. You make use 1-2 patches at one time if needed - A small supply of [place] pain medication has been prescribed. Use it as needed , no closer than [address] Kam will be required to refill the prescription. - This medication can cause constipation, so several bowel regimen medication have been prescribed to use as needed. - Voltaren gel can strain the kidneys. Either Dr. Britt or Dr. Kam can discuss continuing that medication at a later time, if pain is still uncontrolled. Continue all other medication as previous. Current Hospital Diet Patient's current hospital diet: Diabetes Type 2 Diet Discharge Diet Recommended Diet: AHA Diet (Heart Healthy), Diabetes Type 2 Diet, Renal Diet Procedures Procedures Performed: Endoscopic Sinus Surgery of right and left frontal and sphenoid sinusotomies, right and left total ethmoidectomies, right and left maxillary sinusotomies, right and left maxillary sinusotomies with computer guidance Pending Studies Studies pending at discharge: no Laboratory Results Hemoglobin A1c Test 04/02/17 11:20 Range/Units Estimated Average Glucose 183 mg/dl Hemoglobin A1c 8.0 H 4.5-5.6 % Medical Emergencies . Who to Call and When: Medical Emergencies: If at any time you feel your situation is an emergency, please call 911 immediately. . Non-Emergent Contact Non-Emergency issues call your: Primary Care Provider, Moving Picture Operator, Specialist (Circular Knitter Helper, Ophthamologist) . . "Provider Documentation" section prepared by Kassandra Rudolph. Attending Attestation: Discharge care plan d/w PGY1 Dr. Kassandra Rudolph on day of discharge; I agree with her instructions as outlined. Von Lee MD . VTE Core Measure Inpt VTE Proph given/why not?: Unfractionated heparin SQ
[2017-04-06 14:00] VITALS: BP 194/74; PULSE 79; TEMP 36.4; O2SAT 92
[2017-04-06] MEDS ORDERED: AMOXICILLIN/CLAVULANATE TAB 500 MG TAB PO SCH (20:30)
--- NOTE | 2017-04-06 21:07 | Discharge Summary ---
Discharge Summary Date of Service Apr 06, 2017. (Alka. Rudolph MD) Discharge Summary Admission Date: Mar 31, 2017 at 19:24 Discharge Date: Apr 06, 2017 Discharge Disposition: Home Principal Diagnosis: Watson sinus disease, diplopia Problems/Secondary Diagnoses: (1) Chronic Kidney Disease, Unspecified Status: Chronic (2) Hypertension Nos Status: Chronic Immunizations: Have You Had Influenza Vaccine: N/A History of Tetanus Vaccine?: Yes History of Pneumococcal: Yes History of Hepatitis B Vaccine: No (Alka. Rudolph MD) Problems/Secondary Diagnoses: CKD stage 4 HTN T2DM with nephropathy GERD hyperlipidemia nasal polyps chronic pain syndrome 2nd to lumbar back pain hypertensive urgency Procedures: 1. CT head - IMPRESSION: 1. Progressive pansinus disease 2. Otherwise no acute intracranial findings 2. MRI brain - IMPRESSION: 1. No acute intracranial abnormality. 2. No evidence for an acute ischemic event. 3. Atrophy and chronic small vessel change somewhat progressive compared to the prior study 2014 4. Mildly progressive sinus change compared to the prior exam. 3. MRV brain - IMPRESSION: 1. No evidence of dural venous sinus thrombosis. 2. Extensive paranasal sinus disease. 4. CT sinuses - IMPRESSION: 1. Progressive opacification of the bulk of the sinuses as described. 2. The ostiomeatal units as well as left antral window are soft tissue occluded. 3. All findings are progressive compared to the prior exam. 5. Right and left frontal, right and left sphenoid, right and left total ethmoid and right and left maxillary sinus antrostomy - Dr. Kindra Juan Consultations: ENT - Kindra Juan MD Ophthomology - Gerald Rodriguez MD (Von Lee MD) Medication Reconciliation New Medications: Amlodipine Besylate (Amlodipine Besylate) 5 Mg Tab 10 MG PO QAM, #60 TAB 3 Refills Amoxicillin & Pot Clavulanate (Amoxicillin/Clavulanate P) 1 Tab Tab 500 MG PO BIDM, #14 TAB Docusate Sodium (Docusate Sodium) 100 Mg Cap 100 MG PO BID, #120 CAP Fluticasone Propionate (Fluticasone Propionate) 50 Mcg/Act Spr 2 SPRAYS NA BID for 14 Days, #1 BTL 2 Refills Guaifenesin Ext Rel (Mucinex Ext Rel) 600 Mg Tabcr 1200 MG PO Q12, #14 TAB Hydralazine Hcl (Apresoline) 25 Mg Tab 50 MG PO TID, #150 TAB 3 Refills Hydrocodone/Acetaminophen 5MG/325MG ([place] 5MG/325MG) Tab 1 TAB PO Q4H PRN for Pain, #20 TAB PRN PAIN Lidocaine (Lidocaine) 1 Patch Tdsy 1 PATCH TD QAM, #30 PATCH 1 Refill Can use 1-2 patches at a time Magnesium Hydroxide (Milk of Magnesia) 30 Ml Susp 30 ML PO Q6H PRN for Constipation, #100 ML 1 Refill Polyethylene (Miralax) 17 Gm Pow 17 GM PO QAM, #30 EA 3 Refills Saline ([place] Nasal [place]) 0.65 % Spr 4 SPRAYS NA Q1HWA PRN for Nasal Congestion, #1 BTL 1 Refill Thiamine HCl (Vitamin B-1) 100 Mg Tab 200 MG PO BID, #30 TAB Changed Medications: Carvedilol (Coreg) 25 Mg Tab 25 MG PO BID, #30 TAB 3 Refills (Changed from: 12.5 MG) Isosorbide Mononitrate Ext Rel (Imdur Ext Rel) 30 Mg Tabcr 60 MG PO DAILY, #60 TAB 3 Refills (Changed from: 30 MG; 30; Refills: ) Continued Medications: Acarbose (Precose) 25 Mg Tab 25 MG PO DAILY, #30 Aspirin (Aspirin Ec) 81 Mg Tab 81 MG PO QAM Cholecalciferol (Vitamin D3) 1,000 Unit Tab 2000 INTER.UNIT PO QAM for 90 Days, TAB 3 Refills Insulin Isophane (Human) (Novolin N Relion) 100 Unit/Ml Inj 10 UNITS SQ QPM, #10 Omeprazole (Prilosec) 20 Mg Cap 20 MG PO QAM, #90 Discontinued Medications: Hydrochlorothiazide (Hydrochlorothiazide) 12.5 Mg Tab 12.5 MG PO DAILY, #90 Losartan Potassium (Losartan Potassium) 25 Mg Tab 25 MG PO DAILY, #30 Tramadol/Acetaminophen (Ultracet) 37.5 Mg/325 Mg Tab 1 TAB PO TID PRN for Pain Discharge Exam Patient feeling well, "the best in months". He states full resolution of headaches, sinus tenderness, diplopia. He denies chest pain and dyspnea, even with ambulation. An ambulatory pulse ox test confirmed sats are maintained with exertion. No palpitations, lightheadedness. Back pain improved with inpatient prescribed analgesia. Patient states poor sleep in hospital but is tolerating diet without abdominal pain, nausea or vomiting. He is having some constipation , and willing to try Dulcolax. He denies any UTI symptoms. ROS otherwise grossly unremarkable. . Physical Exam: General Appearance: WD/WN, no apparent distress Eyes: PERRL, EOMI, sclerae normal, + pertinent finding (Inability to abduct bilaterally) ENT: hearing grossly normal, pharynx normal Neck: supple, no adenopathy, thyroid normal, no JVD Respiratory/Chest: no respiratory distress, no accessory muscle use, + rales (scattered diffusely), + wheezing (bilaterally, but improved) Cardiovascular: regular rate, rhythm, no edema, no JVD, no murmur, normal peripheral pulses Abdomen / GI: normal bowel sounds, non tender, soft, no organomegaly Extremities: normal inspection, no calf tenderness, normal capillary refill , no pedal edema Neurologic/Psychiatric: kiln maintenance II-XII nml as tested, no motor/sensory deficits , alert, normal mood/affect, oriented x 3 Skin: normal color, warm/dry, no rash (Alka. Rudolph MD) Hospital Course 81 year old male with PMHx DMII, CKD, HTN, chronic back pain and h/o falls admitted with diplopia with pansinus disease confirmed on imaging, as well as hypertensive urgency. Pansinus disease - Confirmed via CT sinus - s/p sinus surgery with Dr. Juan 04/04/17 - IV Unasyn started empirically and transitioned to PO Augmentin (for 14 day course total) - Flonase nasal spray BID - Cultures growing s.aureus (watson-sensitive), Morganella morganii (imipenem resistant), bacteroides fragilis, corynebacterium species - sensitivities pending for other organisms - Follow up with Dr. Juan arranged for FridayApril 16 at 11:15 am. Diplopia + inability to abduct eyes bilaterally - Differential included brainstem stroke, microvascular disease, infectious process, uncontrolled diabetes. - Brain MRI and CT negative for stroke. MRI venogram was negative fo dural venous thrombosis - Started PO thiamine empirically (as deficiency can cause nystagmus, severe eye fatigue and neurodegeneration). Continued on discharge as B1 levels pending. - Follow up with Dr. Rodriguez arranged for FridayApril 18 at 1:00 pm. HTN (refractory) - Discontinued losartan and HCTz due to renal function - Increase carvedilol to 25 BID and Imdur to 60mg. - Added hydralazine titrated up to 50 TID and amlodipine titrated up to 10mg daily - Renin and aldosterone levels pending on discharge - If ongoing HTN, after max titration of amlodipine, can consider clonidine. - Advised follow up with Dr. Kam within 1 week to reassess blood pressure and BMP Cough - CXR suggest atelectasis, but no pulm congestion - Advised use of Mucinex for symptoms and use the incentive spirometer to help with lung expansion. - Patient benefitted from Duonebs while inpatient, but declined it on discharge. Advised to reconsider if ongoing issues with breathing. Will likely need aid in attaining a nebulizer machine to continue Duonebs Acute on Chronic kidney disease (stage 4) - Peak Cr 3.3. Baseline Cr ~2.3 - Creatinine 3.0 on discharge Back pain - Ultracet 1 tab TID PRN discontinued due to lack of efficacy - Started Voltaren gel, lidocaine patch and [place] PRN pain while inpatient - Patient refused physical therapy - Discharged with lidocaine patches, 20 tablets of [place] + medication for bowel regimen - Advised discussion with Dr. Britt or Dr. Kam if patient interested in resuming Voltaren gel DM - Hba1c is 8 - ISS with BGS ac/hs while in hospital - Discharge on previous home regimen: Acarbose and home insulin Constipation - Scheduled Miralax and Colace daily GERD - Protonix 20mg VTE PPx - Hep SC This includes examination of the patient, discharge planning, medication reconciliation, and communication with other providers. (Alka. Rudolph MD) Attending Discharge Note & Attestation: Pt seen/examined, chart reviewed, care plan d/w PGY1 Dr. Kassandra Rudolph. I agree w/ the briseno components of her discharge summary. 81yo male with h/o CKD and HTN who presented with dizziness, diplopia when he would look downward, and a left frontal headache. At time of presentation he had marked elevation in his blood pressure. CT head demonstrated no stroke but watson-sinusitis. He was initiated on IV antibiotic therapy. He underwent a work-up for his diplopia including MRI and MRV of the brain both of which were normal except for watson-sinusitis. He was seen in consult by Dr. Juan from ENT and Dr. Rodriguez from ophthomology. Dr. Juan recommended sinus surgery for his severe watson-sinusitis. He also felt that there could be orbital involvement from his sinusitis affecting his extra-ocular muscles and thus leading to diplopia. The patient did in fact have sinus surgery and following such he felt significantly better from an ENT standpoint. Diplopia also improved subjectively, but the patient continued to have esotropia on exam even at time of discharge. Intra-op sinus culture was growing staph aureus at discharge and he will complete a course of oral augmentin at home. Flonase twice daily has also been started for his sinuses and nasal polyps. In addition the patient's uncontrolled HTN was treated and multiple medication changes/additions were made. See Dr. Rudolph's portion of the d/c summary for details. Discharge exam - gen - NAD, a/o x 3 eyes - esotropia b/l (difficulty abducting both eyes), PERRl neck - no JVD heart - RRR, s1, s2 lungs - faint rales bases, scant wheeze b/l abd - soft, NT ext - no edema The patient had a B1 level sent as a precautionary measure in the event thiamine deficiency was playing a role in his diplopia and abnormal extraocular muscle exam. He was d/c home on thiamine supplementation while awaiting the level. Von Lee MD Total Time Spent: Greater than 30 minutes (Von Lee MD) Discharge Instructions Please refer to the electronic Patient Visit Report (Discharge Instructions) for additional information. (Alka. Rudolph MD) Follow-Up 1. see Dr. Von Kam within 5-[address] Juan on FridayApril 16 at 11:[address] Rodriguez on FridayApril 18 at 1:00 pm (Von Lee MD) Additional Copies To Von Kam M.D.; Huan Britt M.D.; Kindra Juan M.D.; Gerald Rodriguez M.D.
== END 2017-04-06 14:38 | disposition home or self-care (01) | DRG 135 ==
LOC: C.EDB 13:08 → C.2T 19:24 → ENRESERV 19:42 → C.MS2W 04-03 11:29
PROVIDERS: ADMIT Hospitalist; ATTEND Internal Medicine
PROC: 09BV4ZZ Excision of Left Ethmoid Sinus, Percutaneous Endoscopic Approach (ICD-10-PCS; principal; 2017-04-04 07:15)
PROC: 09CR4ZZ Extirpation of Matter from Left Maxillary Sinus, Percutaneous Endoscopic Approach (ICD-10-PCS; principal; 2017-04-04 07:15)
PROC: 09BU4ZZ Excision of Right Ethmoid Sinus, Percutaneous Endoscopic Approach (ICD-10-PCS; principal; 2017-04-04 07:15)
PROC: 09CQ4ZZ Extirpation of Matter from Right Maxillary Sinus, Percutaneous Endoscopic Approach (ICD-10-PCS; principal; 2017-04-04 07:15)
DX: J01.41 Acute recurrent pansinusitis (principal); J96.01 Acute respiratory failure with hypoxia; N17.9 Acute kidney failure, unspecified; N18.4 Chronic kidney disease, stage 4 (severe); B95.61 Methicillin susceptible Staphylococcus aureus infection as the cause of diseases classified elsewhere; H53.2 Diplopia; H50.00 Unspecified esotropia; E11.22 Type 2 diabetes mellitus with diabetic chronic kidney disease; E78.5 Hyperlipidemia, unspecified; I12.9 Hypertensive chronic kidney disease with stage 1 through stage 4 chronic kidney disease, or unspecified chronic kidney disease; K21.9 Gastro-esophageal reflux disease without esophagitis; J33.9 Nasal polyp, unspecified; K59.00 Constipation, unspecified; R80.9 Proteinuria, unspecified; G89.4 Chronic pain syndrome; M54.5 Low back pain; Z79.82 Long term (current) use of aspirin; Z79.4 Long term (current) use of insulin; Z79.899 Other long term (current) drug therapy; Z66 Do not resuscitate

== ENCOUNTER 2017-04-14 20:27 | Inpatient (IN) | payer OTHER ==
[~2017-04-14] VITALS: Ht 172.7 cm; Wt 100.0 kg
[~2017-04-14 20:27] MED LIST changes: +ACAR25TA2 PO; +AMOX1TAB42 PO; +APR25 PO; -CARV12.52 PO; +CARV25TA2 PO; +CHOL1000 PO; -CHOL20009 PO; +CLC100 PO; -COEN1CAP32 PO; +FLNIN; +GFNSR600 PO; -GLC/500 PO; +HYDR-5688 PO; +INSU0.01 SQ; +ISOS30TA35 PO; +LDDP5 TD; +MOMLX PO; +MRLP17 PO; +SALI0.6510; +THM100 PO; -TRAMTAB5 PO; -ZCR40 PO
[2017-04-14] MEDS ORDERED: CIPR250T3 PO (21:24)
[2017-04-14 21:35] LABS: HEMATOCRIT 34.3 % (42-52); MEAN CELL VOLUME 89.3 fL (80-100); MEAN CORPUSCULAR HEMOGLOBIN 28.6 pg (25-34); MEAN CORPUSCULAR HGB CONC 32.1 g/dl (32-36); MEAN PLATELET VOLUME 9.9 fL (7.4-10.4); PLATELET COUNT 162 K/uL (130-400); RED BLOOD COUNT 3.84 M/uL (4.7-6.1); WHITE BLOOD COUNT 6.52 K/uL (4.8-10.8)
[2017-04-14 21:39] LABS: INR 1.1 (0.9-1.1); PROTHROMBIN TIME (PATIENT) 12.2 SECONDS (9.0-12.0)
--- NOTE | 2017-04-14 21:40 | DIAGNOSTIC IMAGING REPORT ---
CHEST ONE VIEW PORTABLE CLINICAL HISTORY: Atypical chest pain. Hypertension. Chills. Difficulty breathing. COMPARISON STUDY: 04/05/2017 FINDINGS: The heart is mildly enlarged. There is no failure. There is no lobar consolidation. There is mild basilar atelectasis/scarring.[ No pleural effusions are visualized. IMPRESSION: Stable basilar atelectasis/scarring. No acute findings. Electronically signed by: Darren Campos M.D. 04/14/2017 9:38 PM Dictated Date/Time: 04/14/2017 9:37 PM
[2017-04-14 21:41] LABS: POINT OF CARE PRO-BNP 1214 pg/ml (0-1800); POINT OF CARE TROPONIN I < 0.030 ng/ml (0-0.045)
[2017-04-14 21:46] LABS: BUN/CREATININE RATIO 16.7 (10-20); CREATININE 3.4 mg/dl (0.60-1.40); POTASSIUM 4.6 mmol/L (3.5-5.1)
[2017-04-14] MEDS ORDERED: SODIUM CHLORIDE 0.9% 1000ML 1,000 ML IV STA (21:56)
--- NOTE | 2017-04-14 21:56 | DIAGNOSTIC IMAGING REPORT ---
CT HEAD WITHOUT CONTRAST (CT) CLINICAL HISTORY: weakness COMPARISON STUDY: 03/31/2017 TECHNIQUE: Axial CT of the brain is performed from the vertex to the skull base. IV contrast was not administered for this examination. CT DOSE: 909.34 mGy.cm FINDINGS: No intra or extra-axial mass lesions are visualized. There is no CT evidence of acute cortical infarction. There is no evidence of midline shift. There is no acute hemorrhage. No calvarial fractures are visualized. There are moderately extensive white matter hypodensities likely on a small vessel basis. There is no evidence of pathologic ventricular dilatation. There is partial opacification of both maxillary sinuses. There is mucosal thickening within ethmoid air cells. Postsurgical changes are suspected. IMPRESSION: No acute intracranial findings Electronically signed by: Draren Campos M.D. 04/14/2017 9:54 PM Dictated Date/Time: 04/14/2017 9:53 PM
[2017-04-14 22:09] LABS: BASO % 0.2 %; BASO ABS # 0.01 K/uL (0-0.2); COMPLETE YES; IG% 0.6 %; LYMPH % 6.7 %; LYMPH ABS # 0.44 K/uL (1.2-3.4); MONO % 8.1 %; NEUT % 84.4 %
[2017-04-14 22:27] LABS: URINE APPEARANCE CLEAR (CLEAR); URINE BILIRUBIN NEG (NEG); URINE COLOR YELLOW; URINE NITRITE NEG (NEG); URINE SPECIFIC GRAVITY 1.024 (1.000-1.030); UROBILINOGEN NEG (NEG)
[2017-04-14 22:32] LABS: MANUAL MICROSCOPIC REQUIRED? NO; REVIEW REQ? YES
[2017-04-14] MEDS ORDERED: SODIUM CHLORIDE 0.9% 1000ML 1,000 ML IV SCH (23:15)
[2017-04-14] MEDS ORDERED: MoRPHine SULFATE 2 MG/ML CARP IV STA (23:30)
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
[2017-04-14 23:37] LABS: THYROID STIMULATING HORMONE 0.206 uIu/ml (0.300-4.500)
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
[2017-04-14] MEDS ORDERED: ACETAMINOPHEN 325 MG TAB PO PRN (23:45)
[2017-04-14] MEDS ORDERED: POLYETHYLENE (MIRALAX) 17 GM PACK PO PRN (23:45)
[2017-04-14] MEDS ORDERED: ALUMINUM/MAGNESIUM/SIMETH (MAALOX MAX) 30 ML UDC PO PRN (23:45)
[2017-04-14] MEDS ORDERED: ONDANSETRON INJ 2 MG/ML 2 ML VIAL IV PRN (23:45)
[2017-04-15] VITALS (8 sets, daily range): BP systolic 110–157; BP diastolic 63–74; PULSE 58–86; TEMP 36.2–37; O2SAT 92–95; BMI 32.7; BMI 32.8
[2017-04-15] MEDS ORDERED: ALBUTEROL 0.083% NEBU SOLN 3 ML VIAL INH PRN
[2017-04-15] MEDS ORDERED: CEFEPIME CONSULT ACTIVE PRN ×2 (01:00)
[2017-04-15] MEDS ORDERED: VANCOMYCIN CONSULT ACTIVE PRN (01:00)
[2017-04-15] MEDS ORDERED: GLUCAGON FOR INJ 1 MG VIAL SQ PRN (01:15)
[2017-04-15] MEDS ORDERED: DEXTROSE 50% 50 ML SYR IV PRN (01:15)
[2017-04-15] MEDS ORDERED: GLUCOSE 10 TABS/TUBE PO PRN (01:15)
[2017-04-15] MEDS ORDERED: GLUCOSE 40% GEL 15 GM TUBE PO PRN (01:15)
[2017-04-15] MEDS: HYDROmorphone INJ 0.5 MG/0.5 ML SYR IV PRN ×5 (01:21→22:15)
[2017-04-15] MEDS: CEFEPIME IV 1,000 MG in DEXTROSE 5% 100ML 100 ML IV SCH (01:22)
[2017-04-15] MEDS ORDERED: VANCOMYCIN INJ 2,000 MG in SODIUM CHLORIDE 0.9% 500ML 500 ML IV ONE (02:00)
[2017-04-15] MEDS: INSULIN ASPART 100 UNITS/ML 3 ML PEN SC SCH ×5 (02:38→20:48)
[2017-04-15] MEDS: HEPARIN SOD 5000 UNIT/0.5 ML CARP SQ SCH ×3 (06:14→21:06)
[2017-04-15 06:31] LABS: BUN/CREATININE RATIO 19.9 (10-20); CALCIUM 7.2 mg/dl (8.5-10.1); CREATININE 3.1 mg/dl (0.60-1.40); MAGNESIUM 2.3 mg/dl (1.8-2.4); POTASSIUM 4.4 mmol/L (3.5-5.1)
[2017-04-15 06:32] LABS: PHOSPHORUS 4.1 mg/dl (2.5-4.9)
[2017-04-15 06:34] LABS: ESTIMATED AVERAGE GLUCOSE 183 mg/dl; HA1C FLAG Normal (Normal)
--- NOTE | 2017-04-15 08:08 | DIAGNOSTIC IMAGING REPORT ---
CT SCAN OF THE CHEST WITHOUT IV CONTRAST CLINICAL HISTORY: Pneumonia. Dyspnea. COMPARISON STUDY: Chest x-ray dated 04/14/2017. TECHNIQUE: CT scan of the thorax was performed from the thoracic inlet to the upper abdomen. Images are reviewed in the axial, sagittal, and coronal planes. IV contrast was not administered for this examination as per the referring clinician. CT DOSE: 468.54 mGy.cm FINDINGS: Thyroid: Imaged portions of the thyroid gland are normal in size and attenuation. Thoracic aorta: There is mild atherosclerotic calcification of the thoracic aorta, which is normal in caliber and demonstrates standard 3-vessel arch anatomy. Heart: The heart is enlarged and without pericardial effusion. The coronary arteries are densely calcified. The pulmonary trunk is top normal in caliber. Lungs and pleural spaces: Evaluation of the lung parenchyma is degraded by respiratory motion artifact. Dependent airspace opacities are typical in appearance for atelectasis. No pleural effusion is seen. The trachea and central airways are clear. Mediastinum: There are numerous subcentimeter mediastinal lymph nodes. Josi: Not well assessed without IV contrast. Axillae: There is no axillary lymphadenopathy. Upper abdomen: Gynecomastia is noted. A moderate hiatal hernia is identified. Partially visualized upper abdominal viscera is otherwise within normal limits. Skeletal structures: The skeletal structures are osteopenic. Arthritic change is noted in the thoracic spine and shoulders. No lytic or blastic bony lesions are seen. IMPRESSION: 1. Cardiomegaly. 2. There is no airspace consolidation typical for pneumonia or pleural effusion. 3. Dependent airspace opacities are consistent with atelectasis. 4. There are numerous subcentimeter mediastinal lymph nodes. These are not pathologically enlarged by size criteria and may be on a reactive basis. 5. Hiatal hernia. 6. Additional findings as above. Electronically signed by: Cleveland Otoole M.D. 04/15/2017 8:06 AM Dictated Date/Time: 04/15/2017 8:02 AM
--- NOTE | 2017-04-15 08:23 | DIAGNOSTIC IMAGING REPORT ---
BILATERAL LOWER EXTREMITY VENOUS DOPPLER HISTORY: Pain. Edema. dv COMPARISON STUDY: None. FINDINGS: There is normal compressibility, flow, and augmentation within the bilateral lower extremity deep venous systems. IMPRESSION: No DVT within the right or left lower extremity. Electronically signed by: Rufus Pham M.D. 04/15/2017 8:22 AM Dictated Date/Time: 04/15/2017 8:20 AM
--- NOTE | 2017-04-15 08:25 | ENT CONSULTATION ---
DATE OF CONSULTATION: 04/15/2017 DIAGNOSIS: Weakness and status post sinus surgery. HISTORY: This is an 81-year-old gentleman with hypertension and diabetes, who recently had a sinus surgery by me for diplopia, was admitted because of weakness and feeling cold. He denies having diplopia or facial pain or headaches and is able to breathe through his nose. PHYSICAL EXAMINATION: HEAD: Normocephalic. EYES: Normal. NOSE: Nasal passage has some old dried blood. THROAT: Oropharynx normal. IMAGING DATA: The CT scan of the head was reviewed. This showed clearing of the frontal and sphenoid sinuses, although there is still some residual probably old blood in the maxillary sinuses. IMPRESSION: Status post sinus surgery with improvement, with no diplopia. RECOMMENDATIONS: The patient should use saline nose spray and be followed by me in the office for endoscopic debridement of the sinuses.
[2017-04-15] MEDS ORDERED: AMLODIPINE BESYLATE 5 MG TAB PO SCH (09:00)
[2017-04-15] MEDS: LIDODERM (LIDOCAINE) PATCH 5% TD SCH (09:10)
[2017-04-15] MEDS: FLUTICASONE PROPIONATE NA SPR 16 GM BTL SCH ×2 (09:10→20:36)
[2017-04-15] MEDS: CARVEDILOL 25 MG TAB PO SCH ×2 (09:10→20:38)
[2017-04-15] MEDS: CHOLECALCIFEROL 1000 INTER.UNIT TAB PO SCH (09:12)
[2017-04-15] MEDS: ISOSORBIDE MONONITRATE 60 MG TABCR PO SCH (09:12)
[2017-04-15] MEDS: DOCUSATE SODIUM 100 MG CAP PO SCH ×2 (09:12→20:38)
[2017-04-15] MEDS: THIAMINE HCL 100 MG TAB PO SCH ×2 (09:12→20:38)
[2017-04-15] MEDS: ASPIRIN 81 MG ECTAB PO SCH (09:12)
[2017-04-15] MEDS: BOOST GLUCOSE CONTROL PO SCH ×3 (09:23→21:00)
--- NOTE | 2017-04-15 13:05 | ECHOCARDIOGRAM REPORT ---
*NOTICE TO RECEIVING REPUBLICAN AGENCY This information is strictly Confidential and protected under [place] law. [place] law prohibits you from making any further disclosure of this information unless further disclosure is expressly permitted by the written consent of the person to whom it pertains or is authorized by law. A general authorization for the release of medical or other information is not sufficient for this purpose. Hospital accepts no responsibility if the information is made available to any other person, INCLUDING THE PATIENT. Interpretation Summary * Name: MISHA LARSON Study Date: 04/15/2017 08:21 AM BP: 137/74 mmHg * Patient Location: C.2T\S\S232\S\1 HR: 61 * : 1935 (M/d/yyyy) Gender: Male Height: 68 in * Age: 81 yrs Ethnicity: CA Weight: 213 lb * Ordering Physician: Musa Mix * Referring Physician: Von Kam * Performed By: Beverley Eugene RCS * * Reason For Study: CHF * BSA: 2.1 m2 * -- Conclusions -- * The left ventricle is mildly dilated. * There is mild concentric left ventricular hypertrophy. * Left ventricular systolic function is normal. * Grade I diastolic dysfunction, (abnormal relaxation pattern). * The left atrium is borderline dilated. * Right ventricular systolic pressure is elevated at 40-50mmHg. Procedure Details * A complete two-dimensional transthoracic echocardiogram was performed (2D, M-mode, Doppler and color flow Doppler). Left Ventricle * The left ventricle is mildly dilated. * There is mild concentric left ventricular hypertrophy. * Ejection Fraction = 55-60%. * Left ventricular systolic function is normal. * Grade I diastolic dysfunction, (abnormal relaxation pattern). Right Ventricle * The right ventricle is normal in size and function. Atria * The left atrium is borderline dilated. * Right atrial size is normal. Mitral Valve * Calcification at the coaptation * There is no mitral regurgitation noted. Tricuspid Valve * The tricuspid valve is not well visualized, but is grossly normal. * There is trace tricuspid regurgitation. * Right ventricular systolic pressure is elevated at 40-50mmHg. Aortic Valve * The aortic valve is trileaflet. * No hemodynamically significant valvular aortic stenosis. * Trace aortic regurgitation. Great Vessels * The aortic root is normal size. Pericardium/Pleural * There is no pericardial effusion. Great Vessels * Normal inferior vena cava diameter and respiratory variation suggests normal central venous pressure. MMode 2D Measurements and Calculations IVSd 1.5 cm IVSs 2.1 cm LVIDd 5.6 cm LVIDs 4.2 cm LVPWd 1.3 cm LVPWs 1.4 cm IVS/LVPW 1.1 FS 25.1 % EDV(Teich) 152.4 ml ESV(Teich) 77.8 ml EF(Teich) 49.0 % EDV(cubed) 173.7 ml ESV(cubed) 73.1 ml EF(cubed) 57.9 % % IVS thick 43.1 % % LVPW thick 6.8 % LV mass(C)d 343.5 grams LV mass(C)dI 163.6 grams/m\S\2 LV mass(C)s 319.3 grams LV mass(C)sI 152.1 grams/m\S\2 SV(Teich) 74.6 ml SI(Teich) 35.6 ml/m\S\2 SV(cubed) 100.6 ml SI(cubed) 47.9 ml/m\S\2 Ao root diam 3.1 cm Ao root area 7.5 cm\S\2 LA dimension 4.0 cm LA/Ao 1.3 LVOT diam 2.0 cm LVOT area 3.2 cm\S\2 LVAd ap4 44.2 cm\S\2 LVLd ap4 9.5 cm EDV(MOD-sp4) 167.5 ml EDV(sp4-el) 174.5 ml LVAs ap4 24.9 cm\S\2 LVLs ap4 7.3 cm ESV(MOD-sp4) 73.1 ml ESV(sp4-el) 72.4 ml EF(MOD-sp4) 56.4 % EF(sp4-el) 58.5 % LVAd ap2 34.0 cm\S\2 LVLd ap2 8.6 cm EDV(MOD-sp2) 107.2 ml EDV(sp2-el) 114.4 ml LVAs ap2 20.7 cm\S\2 LVLs ap2 7.1 cm ESV(MOD-sp2) 52.6 ml ESV(sp2-el) 51.0 ml EF(MOD-sp2) 51.0 % EF(sp2-el) 55.4 % LVLd %diff -10.53 % EDV(MOD-bp) 140.4 ml LVLs %diff -2.28 % ESV(MOD-bp) 62.3 ml EF(MOD-bp) 55.6 % SV(MOD-sp4) 94.4 ml SI(MOD-sp4) 45.0 ml/m\S\2 SV(MOD-sp2) 54.6 ml SI(MOD-sp2) 26.0 ml/m\S\2 SV(MOD-bp) 78.1 ml SI(MOD-bp) 37.2 ml/m\S\2 SV(sp4-el) 102.1 ml SI(sp4-el) 48.6 ml/m\S\2 SV(sp2-el) 63.3 ml SI(sp2-el) 30.2 ml/m\S\2 Doppler Measurements and Calculations MV E max steven 91.3 cm/sec MV A max steven 139.1 cm/sec MV E/A 0.66 MV P1/2t max steven 97.7 cm/sec MV P1/2t 76.0 msec MVA(P1/2t) 2.9 cm\S\2 MV dec slope 376.7 cm/sec\S\2 MV dec time 0.21 sec Ao V2 max 105.9 cm/sec Ao max PG 4.5 mmHg Ao max PG (full) 0.94 mmHg GERTRUDIS(V,A) 2.8 cm\S\2 GERTRUDIS(V,D) 2.8 cm\S\2 LV V1 max PG 3.5 mmHg LV V1 max 94.2 cm/sec PA V2 max 81.2 cm/sec PA max PG 2.6 mmHg TR max steven 329.6 cm/sec
--- NOTE | 2017-04-15 16:27 | Family Medicine Progress Note ---
Progress Note Date of Service Apr 15, 2017. Subjective Pt evaluation today including: conversation w/ patient, conversation w/ family Voiding: no voiding problems [place] ok today. Denied any pain, just felt weak. Did not want to do PT in the AM. Daughter was present, discussed how pt wants to just go home. Additional Comments: ROS negative unless noted in HPI. Medications Current Inpatient Medications Medications (Trade) Dose Ordered Sig/Sloan Route Start Time Stop Time Status Last Admin Dose Admin Insulin Aspart (novoLOG ASPART) SLIDING SCALE G... ACHS SC 04/15/17 02:00 05/15/17 01:59 04/15/17 11:06 5 UNITS Enteral Nutritional Formula (Boost Glucose Control) 1 can TID PO 04/15/17 09:00 05/15/17 08:59 04/15/17 13:55 1 CAN Amlodipine Besylate (Norvasc Tab) 10 mg QAM PO 04/15/17 09:00 05/15/17 08:59 04/15/17 09:11 10 MG Aspirin (Ecotrin Tab) 81 mg QAM PO 04/15/17 09:00 05/15/17 08:59 04/15/17 09:12 81 MG Carvedilol (Coreg Tab) 25 mg BID PO 04/15/17 09:00 05/15/17 08:59 04/15/17 09:10 25 MG Cholecalciferol (Vitamin D Tab) 2,000 inter.unit QAM PO 04/15/17 09:00 05/15/17 08:59 04/15/17 09:12 2,000 INTER.UNIT Docusate Sodium (coLACE CAP) 100 mg BID PO 04/15/17 09:00 05/15/17 08:59 04/15/17 09:12 100 MG Fluticasone Propionate (Flonase Nasal [place]) 2 sprays BID NA 04/15/17 09:00 05/15/17 08:59 04/15/17 09:10 2 SPRAYS Hydralazine HCl (Apresoline Tab) 50 mg TID PO 04/15/17 09:00 05/15/17 08:59 04/15/17 13:55 50 MG Isosorbide Mononitrate (Imdur Ext Rel Tab) 60 mg DAILY PO 04/15/17 09:00 05/15/17 08:59 04/15/17 09:12 60 MG Lidocaine (Lidoderm Patch 5%) 1 patch QAM TD 04/15/17 09:00 05/15/17 08:59 04/15/17 09:10 1 PATCH Thiamine HCl (Vitamin B-1 Tab) 200 mg BID PO 04/15/17 09:00 05/15/17 08:59 04/15/17 09:12 200 MG Miscellaneous (Remove Lidoderm Patch) 1 ea DAILY@21 N/A 04/15/17 21:00 05/15/17 20:59 Heparin Sodium (Porcine) (Heparin Sq 5000 Unit/0.5ml) 5,000 unit Q8H SQ 04/15/17 06:00 05/15/17 05:59 04/15/17 13:56 5,000 UNIT Acetaminophen (Tylenol Tab) 650 mg Q4H PRN PO 04/14/17 23:45 05/14/17 23:44 Al Hydrox/Mg Hydrox/Simethicone (Maalox Max Susp) 15 ml Q4H PRN PO 04/14/17 23:45 05/14/17 23:44 Magnesium Hydroxide (Milk Of Magnesia Susp) 30 ml Q6H PRN PO 04/14/17 23:45 05/14/17 23:44 Polyethylene (Miralax Powder Packet) 17 gm DAILY PRN PO 04/14/17 23:45 05/14/17 23:44 Ondansetron HCl (Zofran Inj) 4 mg Q6H PRN IV 04/14/17 23:45 05/14/17 23:44 Hydromorphone HCl (Dilaudid Inj) 0.5 mg Q3H PRN IV 04/15/17 00:00 04/29/17 00:00 04/15/17 09:17 0.5 MG Cefepime HCl 1000 mg/Dextrose 111.3 ml @ 200 mls/hr Q24H IV 04/15/17 01:00 04/25/17 00:59 04/15/17 01:22 200 MLS/HR Albuterol Sulfate (Ventolin 0.083% 2.5MG/3ML Neb) 2.5 mg Q6R PRN INH 04/15/17 00:00 05/15/17 00:00 Vancomycin HCl (Consult) 1 ea UD PRN N/A 04/15/17 01:00 05/15/17 00:59 Cefepime HCl (Consult) 1 ea UD PRN N/A 04/15/17 01:00 05/15/17 00:59 Glucose (Glucose 40% Gel) 15-30 GRAMS 15 GRAMS... UD PRN PO 04/15/17 01:15 05/15/17 01:14 Glucose (Glucose Chew Tab) 4-8 Tablets 4 Tabl... UD PRN PO 04/15/17 01:15 05/15/17 01:14 Dextrose (Dextrose 50% 50ML Syringe) 25-50ML OF 50% DW IV FOR... UD PRN IV 04/15/17 01:15 05/15/17 01:14 Glucagon (Glucagon Inj) 1 mg UD PRN SQ 04/15/17 01:15 05/15/17 01:14 Objective Vital Signs Date Time Temp Pulse Resp B/P (MAP) Pulse Ox O2 Delivery O2 Flow Rate FiO2 04/15/17 16:00 36.5 63 20 115/63 (80) 93 Nasal Cannula 3.0 04/15/17 16:00 92 Nasal Cannula 3.0 04/15/17 12:00 Nasal Cannula 3.0 04/15/17 11:05 36.2 58 20 119/64 (82) 92 Nasal Cannula 2.0 04/15/17 08:00 Nasal Cannula 3.0 04/15/17 07:37 36.9 62 20 137/74 (95) 92 Nasal Cannula 3.0 04/15/17 04:30 36.8 63 18 143/64 (90) 93 Nasal Cannula 3.0 04/15/17 04:00 Nasal Cannula 3.0 04/15/17 01:30 36.9 67 23 157/65 93 Nasal Cannula 2.0 04/15/17 00:37 67 19 142/63 04/15/17 00:31 156/68 04/15/17 00:27 65 20 90 04/15/17 00:18 65 04/15/17 00:01 139/88 04/14/17 23:57 66 18 89 04/14/17 23:53 153/66 04/14/17 23:27 67 20 89 04/14/17 22:34 68 18 179/68 91 Nasal Cannula 2.0 04/14/17 22:27 70 33 89 04/14/17 22:26 179/68 04/14/17 21:27 69 37 04/14/17 21:04 70 04/14/17 20:43 36.4 68 20 161/60 87 Room Air Physical Exam General Appearance: WD/WN, no apparent distress Eyes: normal inspection, PERRL ENT: hearing grossly normal Neck: supple, no JVD Respiratory/Chest: lungs clear, normal breath sounds, no respiratory distress Cardiovascular: regular rate, rhythm, no murmur Abdomen: normal bowel sounds, non tender, soft Extremities: non-tender, + pedal edema (mild pedal edema) Neurologic/Psychiatric: alert, normal mood/affect, oriented x 3 Skin: no rash Laboratory Results Last 24 Hours Test 04/14/17 21:00 04/14/17 21:19 04/14/17 21:21 04/14/17 21:25 White Blood Count 6.52 K/uL Red Blood Count 3.84 M/uL Hemoglobin 11.0 g/dL Hematocrit 34.3 % Mean Corpuscular Volume 89.3 fL Mean Corpuscular Hemoglobin 28.6 pg Mean Corpuscular Hemoglobin Concent 32.1 g/dl Platelet Count 162 K/uL Mean Platelet Volume 9.9 fL Neutrophils (%) (Auto) 84.4 % Lymphocytes (%) (Auto) 6.7 % Monocytes (%) (Auto) 8.1 % Eosinophils (%) (Auto) 0.0 % Basophils (%) (Auto) 0.2 % Neutrophils # (Auto) 5.50 K/uL Lymphocytes # (Auto) 0.44 K/uL Monocytes # (Auto) 0.53 K/uL Eosinophils # (Auto) 0.00 K/uL Basophils # (Auto) 0.01 K/uL RDW Standard Deviation 49.3 fL RDW Coefficient of Variation 15.0 % Immature Granulocyte % (Auto) 0.6 % Immature Granulocyte # (Auto) 0.04 K/uL Prothrombin Time 12.2 SECONDS Prothromb Time International Ratio 1.1 Activated Partial Thromboplast Time 25.6 SECONDS Partial Thromboplastin Ratio 1.0 Sodium Level 135 mmol/L Potassium Level 4.6 mmol/L Chloride Level 103 mmol/L Carbon Dioxide Level 21 mmol/L Anion Gap 11.0 mmol/L Blood Urea Nitrogen 57 mg/dl Creatinine 3.40 mg/dl Est Creatinine Clear Calc Drug Dose 19.2 ml/min Estimated GFR () 18.5 Estimated GFR (Non- 16.0 BUN/Creatinine Ratio 16.7 Random Glucose 281 mg/dl Calcium Level 8.0 mg/dl Total Bilirubin 0.3 mg/dl Direct Bilirubin 0.2 mg/dl Aspartate Amino Transf (AST/SGOT) 27 U/L Alanine Aminotransferase (ALT/SGPT) 36 U/L Alkaline Phosphatase 64 U/L Total Creatine Kinase 150 U/L Creatine Kinase MB 1.5 ng/ml Creatine Kinase MB Ratio 1.0 Total Protein 7.3 gm/dl Albumin 3.0 gm/dl Lipase 437 U/L Thyroid Stimulating Hormone (TSH) 0.206 uIu/ml Bedside Glucose 291 mg/dl Bedside Troponin I < 0.030 ng/ml PP-Vvo-[id number]-Type Natriuretic Peptide 1214 pg/ml Erythrocyte Sedimentation Rate 15 mm/hr Estimated Average Glucose 183 mg/dl Hemoglobin A1c 8.0 % Test 04/14/17 21:32 04/14/17 21:40 04/15/17 02:12 04/15/17 05:20 Bedside Lactic Acid Venous 0.54 mmol/L Urine Color YELLOW Urine Appearance CLEAR Urine pH 5.0 Urine Specific [place] 1.024 Urine Protein 3+ Urine Glucose (UA) 2+ Urine Ketones NEG Urine Occult Blood NEG Urine Nitrite NEG Urine Bilirubin NEG Urine Urobilinogen NEG Urine Leukocyte Esterase NEG Urine WBC (Auto) 1-5 /hpf Urine RBC (Auto) 0-4 /hpf Urine Hyaline Casts (Auto) 5-10 /lpf Urine Epithelial Cells (Auto) 10-20 /lpf Urine Bacteria (Auto) NEG Urine Yeast (Auto) Bedside Glucose 277 mg/dl Sodium Level 138 mmol/L Potassium Level 4.4 mmol/L Chloride Level 106 mmol/L Carbon Dioxide Level 24 mmol/L Anion Gap 8.0 mmol/L Blood Urea Nitrogen 62 mg/dl Creatinine 3.10 mg/dl Est Creatinine Clear Calc Drug Dose 21.2 ml/min Estimated GFR () 20.7 Estimated GFR (Non- 17.9 BUN/Creatinine Ratio 19.9 Random Glucose 241 mg/dl Calcium Level 7.2 mg/dl Phosphorus Level 4.1 mg/dl Magnesium Level 2.3 mg/dl Lipase 436 U/L Test 04/15/17 06:18 04/15/17 07:24 Bedside Glucose 230 mg/dl Ionized Calcium 1.08 mmol/l Assessment and Plan 81 yo M with multiple comorbidities (DM, CKD Stage IV, HTN) who presents with weakness and fatigue after long course of antibiotics for sinusitis, which has now resolved. Weakness, rigors Was on Vanc and Cefepime, will stop Vancomycin Will continue Cefepime overnight CT sinuses clear, so he was treated well Likely deconditioned overall as he has been sitting in chair at home per daughter Strongly recommend PT/OT Hypertension Will stop Norvasc - could contribute to leg swelling Will increase Hydralazine CKD Stage IV Baseline Cr 2.7, sees Dr Britt Currently 3.1 Will continue to monitor, providing gentle IV fluids New oxygen requirement and pedal edema - ?Heart failure Will obtain echo today Type 2 DM Last A1c 8 Sliding scale Elevated lipase Remains at 467 today Will continue to monitor, does not currently have any signs of pancreatitis Back pain Will transition to home med regime Bilateral pedal edema, without evidence of DVT Encourage mobilization Dispo: Tele Code status: Full VTE: Heparin Resident Physician Supervision Note: I was present with Dr. Hickey during the history and exam. I discussed the case with the resident and agree with the findings and plan as documented in the note. Any exceptions or clarifications are listed here: it sounds as if the decline had been present prior to his last admission, as the daughter explains that the patient has had a chair existence for the last year or so. There is no overwhelming evidence of infection that prompted this admission. His Cr is elevated over his baseline, although his baseline per most recent nephrology visit (January,) is 2.5-2.7 range. He does have LE edema, although his lung exam and imaging do no suggest failure. PLAN 1) PT/OT 2) Hold Norvasc. 3) Increase hydralazine. 4) Monitor BMP 5) Discontinue vancomycin 6) Continue other ABx pending cultures. Documented By: Devin Blood Resident Tracking Resident Involvement: Resident Care Provided Care Provided: Adult Hospital Medicine
[2017-04-15] MEDS: SODIUM CHLORIDE 0.65% NA SOLN 45 ML (OCEAN) SCH ×3 (18:00→22:00)
[2017-04-16] VITALS (9 sets, daily range): BP systolic 103–135; BP diastolic 55–64; PULSE 54–63; TEMP 35.6–36.7; O2SAT 88–95; BMI 33.5
[2017-04-16] MEDS: CEFEPIME IV 1,000 MG in DEXTROSE 5% 100ML 100 ML IV SCH (01:06)
[2017-04-16] MEDS: MAGNESIUM HYDROXIDE SUSP 30 ML UDC PO PRN ×2 (05:14→16:02)
[2017-04-16] MEDS: SODIUM CHLORIDE 0.65% NA SOLN 45 ML (OCEAN) SCH ×9 (05:15→22:00)
[2017-04-16] MEDS: HEPARIN SOD 5000 UNIT/0.5 ML CARP SQ SCH ×3 (05:16→21:24)
[2017-04-16 07:06] LABS: CREATININE 3.5 mg/dl (0.60-1.40)
[2017-04-16] MEDS: CARVEDILOL 25 MG TAB PO SCH ×2 (07:53→21:17)
[2017-04-16] MEDS: LIDODERM (LIDOCAINE) PATCH 5% TD SCH (07:53)
[2017-04-16] MEDS: FLUTICASONE PROPIONATE NA SPR 16 GM BTL SCH ×2 (07:54→21:19)
[2017-04-16] MEDS: INSULIN ASPART 100 UNITS/ML 3 ML PEN SC SCH ×5 (07:56→23:36)
[2017-04-16] MEDS: HYDROmorphone INJ 0.5 MG/0.5 ML SYR IV PRN ×4 (07:58→21:37)
[2017-04-16] MEDS: DOCUSATE SODIUM 100 MG CAP PO SCH ×2 (08:00→21:18)
[2017-04-16] MEDS: BOOST GLUCOSE CONTROL PO SCH ×3 (08:02→21:24)
--- NOTE | 2017-04-16 08:11 | Family Medicine Progress Note ---
Progress Note Date of Service Apr 16, 2017. Subjective Pt evaluation today including: conversation w/ patient Voiding: no incontinence BP significantly improved overnight, down to 110-130 systolic. Reports he just doesnt feel well, but isn't sure what it is, apparently has been short of breath overnight Denies any actual pain Constitutional: No fever ENT: No hearing loss Respiratory: + shortness of breath, + dyspnea on exertion, No cough, No sputum Cardiovascular: No chest pain Abdomen: No pain, No nausea Musculoskeletal: No joint pain Male : No dysuria Neurologic: No memory loss All Other Systems: Reviewed and Negative Medications Current Inpatient Medications Medications (Trade) Dose Ordered Sig/[place] Route Start Time Stop Time Status Last Admin Dose Admin Insulin Aspart (novoLOG ASPART) SLIDING SCALE G... ACHS SC 04/15/17 02:00 05/15/17 01:59 04/15/17 20:48 3 UNITS Enteral Nutritional Formula (Boost Glucose Control) 1 can TID PO 04/15/17 09:00 05/15/17 08:59 04/15/17 13:55 1 CAN Aspirin (Ecotrin Tab) 81 mg QAM PO 04/15/17 09:00 05/15/17 08:59 04/15/17 09:12 81 MG Carvedilol (Coreg Tab) 25 mg BID PO 04/15/17 09:00 05/15/17 08:59 04/15/17 20:38 25 MG Cholecalciferol (Vitamin D Tab) 2,000 inter.unit QAM PO 04/15/17 09:00 05/15/17 08:59 04/15/17 09:12 2,000 INTER.UNIT Docusate Sodium (coLACE CAP) 100 mg BID PO 04/15/17 09:00 05/15/17 08:59 04/15/17 09:12 100 MG Fluticasone Propionate (Flonase Nasal [place]) 2 sprays BID NA 04/15/17 09:00 05/15/17 08:59 04/15/17 20:36 2 SPRAYS Isosorbide Mononitrate (Imdur Ext Rel Tab) 60 mg DAILY PO 04/15/17 09:00 05/15/17 08:59 04/15/17 09:12 60 MG Lidocaine (Lidoderm Patch 5%) 1 patch QAM TD 04/15/17 09:00 05/15/17 08:59 04/15/17 09:10 1 PATCH Thiamine HCl (Vitamin B-1 Tab) 200 mg BID PO 04/15/17 09:00 05/15/17 08:59 04/15/17 20:38 200 MG Miscellaneous (Remove Lidoderm Patch) 1 ea DAILY@21 N/A 04/15/17 21:00 05/15/17 20:59 04/15/17 21:07 1 EA Heparin Sodium (Porcine) (Heparin Sq 5000 Unit/0.5ml) 5,000 unit Q8H SQ 04/15/17 06:00 05/15/17 05:59 04/16/17 05:16 5,000 UNIT Acetaminophen (Tylenol Tab) 650 mg Q4H PRN PO 04/14/17 23:45 05/14/17 23:44 Al Hydrox/Mg Hydrox/Simethicone (Maalox Max Susp) 15 ml Q4H PRN PO 04/14/17 23:45 05/14/17 23:44 Magnesium Hydroxide (Milk Of Magnesia Susp) 30 ml Q6H PRN PO 04/14/17 23:45 05/14/17 23:44 04/16/17 05:14 30 ML Polyethylene (Miralax Powder Packet) 17 gm DAILY PRN PO 04/14/17 23:45 05/14/17 23:44 Ondansetron HCl (Zofran Inj) 4 mg Q6H PRN IV 04/14/17 23:45 05/14/17 23:44 Hydromorphone HCl (Dilaudid Inj) 0.5 mg Q3H PRN IV 04/15/17 00:00 04/29/17 00:00 04/15/17 22:15 0.5 MG Cefepime HCl 1000 mg/Dextrose 111.3 ml @ 200 mls/hr Q24H IV 04/15/17 01:00 04/25/17 00:59 04/16/17 01:06 200 MLS/HR Albuterol Sulfate (Ventolin 0.083% 2.5MG/3ML Neb) 2.5 mg Q6R PRN INH 04/15/17 00:00 05/15/17 00:00 Vancomycin HCl (Consult) 1 ea UD PRN N/A 04/15/17 01:00 05/15/17 00:59 Cefepime HCl (Consult) 1 ea UD PRN N/A 04/15/17 01:00 05/15/17 00:59 Glucose (Glucose 40% Gel) 15-30 GRAMS 15 GRAMS... UD PRN PO 04/15/17 01:15 05/15/17 01:14 Glucose (Glucose Chew Tab) 4-8 Tablets 4 Tabl... UD PRN PO 04/15/17 01:15 05/15/17 01:14 Dextrose (Dextrose 50% 50ML Syringe) 25-50ML OF 50% DW IV FOR... UD PRN IV 04/15/17 01:15 05/15/17 01:14 Glucagon (Glucagon Inj) 1 mg UD PRN SQ 04/15/17 01:15 05/15/17 01:14 Sodium Chloride ([place] Nasal [place]) 2 sprays Q2HWA NA 04/15/17 18:00 05/15/17 17:59 04/16/17 05:15 2 SPRAYS Hydralazine HCl (Apresoline Tab) 100 mg TID PO 04/15/17 21:00 05/15/17 08:59 04/15/17 20:37 100 MG Objective Vital Signs Date Time Temp Pulse Resp B/P (MAP) Pulse Ox O2 Delivery O2 Flow Rate FiO2 04/16/17 07:36 36.3 61 19 133/64 (87) 92 Nasal Cannula 2.0 04/16/17 04:30 36.7 63 24 135/55 (81) 94 Nasal Cannula 2.0 04/16/17 04:00 Nasal Cannula 2.0 04/15/17 23:45 37.0 59 18 110/63 (79) 95 Nasal Cannula 04/15/17 23:30 Nasal Cannula 2.0 04/15/17 20:00 95 Nasal Cannula 3.0 04/15/17 19:24 37.0 86 18 145/64 (91) 94 04/15/17 16:00 36.5 63 20 115/63 (80) 93 Nasal Cannula 3.0 04/15/17 16:00 92 Nasal Cannula 3.0 04/15/17 12:00 Nasal Cannula 3.0 04/15/17 11:05 36.2 58 20 119/64 (82) 92 Nasal Cannula 2.0 Physical Exam General Appearance: WD/WN, + mild distress Eyes: normal inspection, PERRL ENT: hearing grossly normal Neck: supple, no JVD Respiratory/Chest: lungs clear, + decreased breath sounds Cardiovascular: regular rate, rhythm, no murmur Abdomen: normal bowel sounds, non tender, soft Extremities: non-tender, + pedal edema (mild bilateral, non pitting) Neurologic/Psychiatric: alert, normal mood/affect Skin: no rash Laboratory Results Last 24 Hours Test 04/15/17 11:01 04/15/17 15:57 04/15/17 20:06 04/16/17 05:26 Bedside Glucose 332 mg/dl 238 mg/dl 248 mg/dl Creatinine 3.50 mg/dl Est Creatinine Clear Calc Drug Dose 19.0 ml/min Estimated GFR () 17.9 Estimated GFR (Non- 15.5 Test 04/16/17 07:04 Bedside Glucose 323 mg/dl ECHO -- Conclusions -- * The left ventricle is mildly dilated. * There is mild concentric left ventricular hypertrophy. * Left ventricular systolic function is normal. * Grade I diastolic dysfunction, (abnormal relaxation pattern). * The left atrium is borderline dilated. * Right ventricular systolic pressure is elevated at 40-50mmHg. EF 55-60% Assessment and Plan 81 yo M with multiple comorbidities (DM, CKD Stage IV, HTN) who presents with weakness and fatigue after long course of antibiotics for sinusitis, which has now resolved. Weakness, rigors Will stop Cefepime today If has persistent diarrhea, will obtain C Diff sample Likely deconditioned, strongly needs PT / OT and to ambulate in room Hypertension Has significantly improved with increased Hydralazine to 100mg TID and stopping Norvasc CKD Stage IV Baseline Cr 2.7, sees Dr Britt Currently 3.5 Will consult Nephrology at this point Type 2 DM Last A1c 8 Sliding scale, will add meal coverage today Elevated lipase Remains at 467 today Will continue to monitor, does not currently have any signs of pancreatitis Back pain Will transition to home med regime Bilateral pedal edema, without evidence of DVT Encourage mobilization Dispo: Tele - Will discuss transfer to floors today w/attending Code status: Full VTE: Heparin Resident Physician Supervision Note: I was present with Dr. Hickey during the history and exam. I discussed the case with the resident and agree with the findings and plan as documented in the note. Any exceptions or clarifications are listed here: Upon exam, the patient complains of lower abdominal pain, but he no tenderness upon palpation. I reviewed the CT scan results with radiology - he has thickening with surrounding inflammatory changes of the proximal small bowel. Chest x-ray this morning looks good. LE edema present yesterday seems improved. PLAN 1) Consult GI today. 2) NPO. 3) Appreciate nephrology input, aim to keep slightly negative balance. Documented By: Devin Blood Resident Tracking Resident Involvement: Resident Care Provided Care Provided: Adult Hospital Medicine
[2017-04-16] MEDS: ASPIRIN 81 MG ECTAB PO SCH (08:26)
[2017-04-16] MEDS: CHOLECALCIFEROL 1000 INTER.UNIT TAB PO SCH (08:27)
[2017-04-16] MEDS: ISOSORBIDE MONONITRATE 60 MG TABCR PO SCH (08:27)
[2017-04-16] MEDS: THIAMINE HCL 100 MG TAB PO SCH ×2 (08:27→21:18)
--- NOTE | 2017-04-16 11:41 | DIAGNOSTIC IMAGING REPORT ---
SINGLE VIEW CHEST CLINICAL HISTORY: Dyspnea. FINDINGS: An AP, portable, upright chest radiograph is compared to study dated 04/14/2017 and correlated with chest CT dated 04/15/2017. The examination is degraded by portable technique and patient rotation. The heart is mildly enlarged. The pulmonary vasculature is noncongested. Chronic interstitial thickening is similar to previous. Bibasilar airspace opacities are unchanged from previous and likely represent atelectasis. The lungs and pleural spaces are otherwise clear. No pneumothorax is seen. The skeletal structures are osteopenic. The bony thorax is grossly intact. IMPRESSION: 1. Bibasilar airspace opacities are unchanged and likely represent atelectasis. 2. Mild cardiac enlargement without radiographic evidence of congestive failure. Electronically signed by: Cleveland Otoole M.D. 04/16/2017 11:40 AM Dictated Date/Time: 04/16/2017 11:38 AM
--- NOTE | 2017-04-16 13:44 | DIAGNOSTIC IMAGING REPORT ---
ABDOMEN AND PELVIS CT WITHOUT CONTRAST CT DOSE: 1059.03 mGy.cm HISTORY: Pain CHRISTIAN, abdominal pain TECHNIQUE: Multiaxial CT images of the abdomen and pelvis were performed without contrast. COMPARISON STUDY: None FINDINGS: Mild bibasilar atelectatic/infiltrative change. Trace pleural fluid both lung bases. Small hiatal hernia area in liver is uniform. There has been a prior cholecystectomy. The appendix is unremarkable. Spleen is uniform. The adrenal glands are within normal limits. Kidneys demonstrate moderate cortical scarring and thinning bilaterally. No evidence for hydronephrosis. The proximal aspect of the small bowel shows rather significant degree of wall thickening. This appears to be a nonobstructive finding. The colonic pattern appears to been a prior partial colonic resection. Anastomotic sites are identified in the mid sigmoid. Postoperative changes seen to the anterior abdominal wall. Several small fat-containing hernias are present. There is no evidence for an obstructing bowel containment process. IMPRESSION: 1. Abnormal wall thickening of the proximal small bowel raising the possibility of a nonspecific inflammatory process, versus the possibility of an infiltrating neoplastic process such as lymphoma. 2. Endoscopy evaluation is suggested. 3. Postoperative changes as noted. 4. Mild bibasilar infiltrative and/or atelectatic type changes. Electronically signed by: Rufus Pham M.D. 04/16/2017 1:43 PM Dictated Date/Time: 04/16/2017 1:35 PM
--- NOTE | 2017-04-16 16:11 | Nephrology Consultation ---
Nephrology Consultation Date & Providers Date of Consultation: Apr 16, 2017. Primary Care Provider: Von Kam M.D. Referring Provider: Reason for Consultation GILDARDO/CKD History of Present Illness Mr. Mert Foley is an 81-year-old male with chronic kidney disease class IV A3. CKD has been attributed to diabetic nephropathy, hypertension as well as chronic NSAID use. The patient follows in the Nephrology Clinic with Dr. Britt. He was most recently seen in the clinic in January. At that time renal function was stable with a serum creatinine of 2.7 milligram/deciliter. Mr. Foley was admitted to [facility] on April 14. His creatinine at that time was 3.4 milligram/deciliter. He presented with weakness and fatigue. Evaluation has confirmed the etiology of his symptoms. Blood and urine cultures have been negative. A transthoracic echocardiogram documented mild concentric LVH with grade 1 diastolic dysfunction. Right ventricular systolic pressure elevated at 40 to 50. IVC demonstrated normal inspiratory collapse. Patient was admitted to [facility] from March 31 through . Initially presented with this diplopia as well as headache. he was diagnosed with pansinusitis.He underwent endoscopic sinus surgery. Completed a 14 day course of Augmentin with improvement in his symptoms. During his admission earlier this month he developed acute renal failure. Serum creatinine peaked at 3.3 milligram/deciliter and improved to 3.0 milligram /deciliter at discharge. UA documented hyaline casts but otherwise acellular microscopy. Is notable for 3+ protein and 2+ glucose. Medical history is notable for faint monoclonal band reported on prior SPEP/ UPEP. From the information I was able to review serum free light chains both kappa lambda elevated in a 1.6 ratio in November. Serum immunofixation has been normal. Past Medical/Surgical History Medical: -- CKD class IV A3. Baseline creatinine 2.7 w/ EGFR 21 cc/min. Random PCR 2.5. -- SIEP/UIEP revealed only a "faint" monoclonal band. Clinically suspect the patient's renal insufficiency is on the basis of diabetic nephropathy, hypertension and chronic NSAID use -- HTN - intolerant of SIMEON inhibitor therapy due to angioedema. Tolerated ARB without complication -- BPH -- DM II > 30 years - no retinopathy or peripheral neuropathy -- h/o chronic NSAID use complicated by gastric ulcer/gastritis -- Anemia -- Low back pain -- History of Diverticulosis with performed diverticulum requiring sigmoid colectomy Surgical: Sigmoid colectomy with colostomy reversal Allergies Coded Allergies: Lisinopril (Verified Allergy, Unknown, HIVES, 04/14/17) Lovastatin (Verified Allergy, Unknown, LEG CRAMPS, 04/14/17) Rofecoxib (Verified Allergy, Unknown, UNKNOWN, 04/14/17) Simvastatin (Verified Allergy, Unknown, LEG CRAMPS, 04/14/17) Methadone (Verified Adverse Reaction, Unknown, HALUCINATIONS, AGITATION, HEADACHES, 04/14/17) Inpatient Medications Current Inpatient Medications Medications (Trade) Dose Ordered Sig/Sloan Route Start Time Stop Time Status Last Admin Dose Admin Insulin Aspart (novoLOG ASPART) SLIDING SCALE G... ACHS SC 04/15/17 02:00 05/15/17 01:59 04/16/17 12:26 4 UNITS Enteral Nutritional Formula (Boost Glucose Control) 1 can TID PO 04/15/17 09:00 05/15/17 08:59 04/16/17 08:02 1 CAN Aspirin (Ecotrin Tab) 81 mg QAM PO 04/15/17 09:00 05/15/17 08:59 04/16/17 08:26 81 MG Carvedilol (Coreg Tab) 25 mg BID PO 04/15/17 09:00 05/15/17 08:59 04/16/17 07:53 25 MG Cholecalciferol (Vitamin D Tab) 2,000 inter.unit QAM PO 04/15/17 09:00 05/15/17 08:59 04/16/17 08:27 2,000 INTER.UNIT Docusate Sodium (coLACE CAP) 100 mg BID PO 04/15/17 09:00 05/15/17 08:59 04/16/17 08:00 100 MG Fluticasone Propionate (Flonase Nasal [place]) 2 sprays BID NA 04/15/17 09:00 05/15/17 08:59 04/16/17 07:54 2 SPRAYS Isosorbide Mononitrate (Imdur Ext Rel Tab) 60 mg DAILY PO 04/15/17 09:00 05/15/17 08:59 04/16/17 08:27 60 MG Lidocaine (Lidoderm Patch 5%) 1 patch QAM TD 04/15/17 09:00 05/15/17 08:59 04/16/17 07:53 1 PATCH Thiamine HCl (Vitamin B-1 Tab) 200 mg BID PO 04/15/17 09:00 05/15/17 08:59 04/16/17 08:27 200 MG Miscellaneous (Remove Lidoderm Patch) 1 ea DAILY@21 N/A 04/15/17 21:00 05/15/17 20:59 04/15/17 21:07 1 EA Heparin Sodium (Porcine) (Heparin Sq 5000 Unit/0.5ml) 5,000 unit Q8H SQ 04/15/17 06:00 05/15/17 05:59 04/16/17 14:39 5,000 UNIT Acetaminophen (Tylenol Tab) 650 mg Q4H PRN PO 04/14/17 23:45 05/14/17 23:44 Al Hydrox/Mg Hydrox/Simethicone (Maalox Max Susp) 15 ml Q4H PRN PO 04/14/17 23:45 05/14/17 23:44 Magnesium Hydroxide (Milk Of Magnesia Susp) 30 ml Q6H PRN PO 04/14/17 23:45 05/14/17 23:44 04/16/17 05:14 30 ML Polyethylene (Miralax Powder Packet) 17 gm DAILY PRN PO 04/14/17 23:45 05/14/17 23:44 Ondansetron HCl (Zofran Inj) 4 mg Q6H PRN IV 04/14/17 23:45 05/14/17 23:44 Hydromorphone HCl (Dilaudid Inj) 0.5 mg Q3H PRN IV 04/15/17 00:00 04/29/17 00:00 04/16/17 14:47 0.5 MG Albuterol Sulfate (Ventolin 0.083% 2.5MG/3ML Neb) 2.5 mg Q6R PRN INH 04/15/17 00:00 05/15/17 00:00 Glucose (Glucose 40% Gel) 15-30 GRAMS 15 GRAMS... UD PRN PO 04/15/17 01:15 05/15/17 01:14 Glucose (Glucose Chew Tab) 4-8 Tablets 4 Tabl... UD PRN PO 04/15/17 01:15 05/15/17 01:14 Dextrose (Dextrose 50% 50ML Syringe) 25-50ML OF 50% DW IV FOR... UD PRN IV 04/15/17 01:15 05/15/17 01:14 Glucagon (Glucagon Inj) 1 mg UD PRN SQ 04/15/17 01:15 05/15/17 01:14 Sodium Chloride ([place] Nasal [place]) 2 sprays Q2HWA NA 04/15/17 18:00 05/15/17 17:59 04/16/17 12:22 2 SPRAYS Hydralazine HCl (Apresoline Tab) 100 mg TID PO 04/15/17 21:00 05/15/17 08:59 04/16/17 14:40 100 MG Family History Cancer Diabetes mellitus Heart disease Hypertension Social History Smoking Status: Never Smoker Drug Use: none Marital Status: Housing Status: lives with significant other Occupation: retired Review of Systems A complete review of systems was performed. Pertinent positives are noted above. All other systems are negative. Physical Exam Date Time Temp Pulse Resp B/P (MAP) Pulse Ox O2 Delivery O2 Flow Rate FiO2 04/16/17 12:00 Nasal Cannula 2.0 04/16/17 10:53 36.5 58 17 119/63 (81) 93 Nasal Cannula 3.0 04/16/17 08:00 Nasal Cannula 2.0 04/16/17 07:36 36.3 61 19 133/64 (87) 92 Nasal Cannula 2.0 04/16/17 04:30 36.7 63 24 135/55 (81) 94 Nasal Cannula 2.0 04/16/17 04:00 Nasal Cannula 2.0 04/15/17 23:45 37.0 59 18 110/63 (79) 95 Nasal Cannula 04/15/17 23:30 Nasal Cannula 2.0 04/15/17 20:00 95 Nasal Cannula 3.0 04/15/17 19:24 37.0 86 18 145/64 (91) 94 04/15/17 16:00 36.5 63 20 115/63 (80) 93 Nasal Cannula 3.0 04/15/17 16:00 92 Nasal Cannula 3.0 General Appearance: WD/WN, no apparent distress Head: normocephalic, atraumatic Eyes: normal inspection, sclerae normal Neck: supple, + JVD (12 centimeter) Respiratory/Chest: normal breath sounds, + respiratory distress (Mild), + decreased breath sounds Cardiovascular: no gallop, no murmur, + bradycardia Abdomen/GI: + tenderness, + distended, + pertinent finding (tympanic) Extremities/Musculoskelatal: + pedal edema, + pertinent finding (No cyanosis) Neurologic/Psych: alert, oriented x 3 Skin: normal color Laboratory Results Last 24 Hours Test 04/15/17 15:57 04/15/17 20:06 04/16/17 05:26 04/16/17 07:04 Bedside Glucose 238 mg/dl 248 mg/dl 323 mg/dl Creatinine 3.50 mg/dl Est Creatinine Clear Calc Drug Dose 19.0 ml/min Estimated GFR () 17.9 Estimated GFR (Non- 15.5 Test 04/16/17 15:39 Impression (1) Acute renal insufficiency (2) Chronic kidney disease, stage IV (severe) (3) Small bowel lesion (4) Hypertension (5) Proteinuria Mr. Mert Foley is an 81-year-old male with acute on chronic renal insufficiency. He has had progressive stage 4 chronic kidney disease attributed to diabetes, hypertension as well as a history of chronic NSAID use. Patient has a history of recent pansinusitis for which he completed a course Augmentin following endoscopic sinus surgery. Volume status appears replete and blood pressure is appropriate. I suspect there is some component of acute on chronic diastolic congestive heart failure. I would suggest to maintain a slightly negative fluid balance. Most concerning was patient's abdominal symptoms this morning. CT of the abdomen and pelvis was obtained. Kidneys show evidence of chronic changes no evidence of obstruction. Urinalysis documented hyaline casts otherwise acellular microscopy. He has 3+ protein and 2+ group glucose in his urine. There is a history of a faint monoclonal spike reported on both SPEP and UPEP per Dr. Britt's records. I was able to find showed kappa and lambda free light chains elevated at an acceptable 1.6 ratio. immunofixation on the serum was previously normal as well. Recommendations -- DC MIVF -- Maintain slightly negative fluid balance -- Medications are appropriately dosed for renal function -- Consult GI regarding abnormal finding on CT scan -- No emergent need for [employer] -- Repeat SPEP/UPEP, immunofixation with next labs
[2017-04-16 16:50] LABS: BLOOD UREA NITROGEN 89 mg/dl (7-18); BUN/CREATININE RATIO 24.6 (10-20); CALCIUM 6.9 mg/dl (8.5-10.1); CARBON DIOXIDE 18 mmol/L (21-32); CHLORIDE 101 mmol/L (98-107); GLUCOSE 288 mg/dl (70-99); PHOSPHORUS 3.8 mg/dl (2.5-4.9)
[2017-04-16 16:59] LABS: SODIUM 131 mmol/L (136-145)
[2017-04-16] MEDS ORDERED: INSULIN HUMAN REGULAR PER UNIT 8 UNITS in SYRINGE 7.92 ML IV STA (21:34)
--- NOTE | 2017-04-16 21:42 | Progress Note ---
Progress Note Date of Service Apr 16, 2017. Progress Note Called by nursing approximately 21:30 regarding patient BSGs Patient noted to have BSG consistently in 200 - > 300s over the past 48 hours Item Value Date Time Bedside Glucose 323 mg/dl H 04/16/17 0704 Bedside Glucose 309 mg/dl H 04/16/17 1055 Bedside Glucose 330 mg/dl H 04/16/17 1605 Bedside Glucose 248 mg/dl H 04/15/17 2006 Bedside Glucose 238 mg/dl H 04/15/17 1557 Bedside Glucose 332 mg/dl H 04/15/17 1101 Bedside Glucose 230 mg/dl H 04/15/17 0618 Bedside Glucose 277 mg/dl H 04/15/17 0212 Bedside Glucose 291 mg/dl H 04/14/17 2119 Total insulin coverage by SSI calculated at 17 units. Plan: - [id number] and [id number] BSG checks added - Based on bolus dosing 0.1 U/kg --> Patient could get bolus up to 10 Units Will start conservatively with 8 units IV regular insulin NOW and monitor response in 1 hr Hold SSI coverage for now Repeat BSG in 1 hour and administer SSI as needed - Total Insulin over 24 hours: 17 units (SSI) + 8 units Regular insulin to administer now --> 25 units Can start basal insulin approximately 50% of TDD (can go upto 12.5 units basal insulin) Start basal coverage at 10 units Lantus, can titrate up as determined by BSGs
[2017-04-16] MEDS ORDERED: NURSING VERBAL MED ORDER ONE (23:45)
[2017-04-17] VITALS (15 sets, daily range): BP systolic 60–140; BP diastolic 29–73; PULSE 49–62; TEMP 36.5; O2SAT 86–100; Ht 172.7 cm; Wt 100.0 kg
[2017-04-17] MEDS: INSULIN ASPART 100 UNITS/ML 3 ML PEN SC SCH ×4 (00:40→14:08)
[2017-04-17] MEDS: HYDROmorphone INJ 0.5 MG/0.5 ML SYR IV PRN ×2 (04:17→07:55)
[2017-04-17] MEDS: HEPARIN SOD 5000 UNIT/0.5 ML CARP SQ SCH ×2 (06:04→14:41)
[2017-04-17] MEDS: SODIUM CHLORIDE 0.65% NA SOLN 45 ML (OCEAN) SCH ×6 (06:05→14:42)
[2017-04-17] MEDS: BOOST GLUCOSE CONTROL PO SCH ×2 (07:49→14:40)
[2017-04-17] MEDS: ASPIRIN 81 MG ECTAB PO SCH (07:52)
[2017-04-17] MEDS: FLUTICASONE PROPIONATE NA SPR 16 GM BTL SCH (07:52)
[2017-04-17] MEDS: DOCUSATE SODIUM 100 MG CAP PO SCH (07:52)
[2017-04-17] MEDS: CARVEDILOL 25 MG TAB PO SCH (07:53)
[2017-04-17] MEDS: THIAMINE HCL 100 MG TAB PO SCH (07:54)
[2017-04-17] MEDS: LIDODERM (LIDOCAINE) PATCH 5% TD SCH (07:54)
[2017-04-17] MEDS: ISOSORBIDE MONONITRATE 60 MG TABCR PO SCH (07:54)
[2017-04-17] MEDS: CHOLECALCIFEROL 1000 INTER.UNIT TAB PO SCH (07:54)
[2017-04-17] MEDS ORDERED: PANTOprazole SOD 40 MG TAB PO SCH (08:00)
[2017-04-17] MEDS ORDERED: INSULIN GLARGINE SOLOSTAR 100 UNITS/ML 3 ML PEN SC SCH (08:00)
[2017-04-17 08:12] LABS: BUN/CREATININE RATIO 24.2 (10-20); CREATININE 4.2 mg/dl (0.60-1.40); POTASSIUM 4.5 mmol/L (3.5-5.1)
[2017-04-17 08:50] LABS: CALCIUM 7.1 mg/dl (8.5-10.1)
--- NOTE | 2017-04-17 09:50 | Gastrointestinal Consultation ---
Gastrointestinal Consultation Date of Consultation: Apr 17, 2017 Attending Physician: Dr. Hickey Consulting Physician: Dr. Kent/RAUL Weldon Reason for Consultation: Abnormal CT History of Present Illness Patient is a 81 year old male with a history of recent hospital admission for pansinusitis s/p sinus surgery in early March readmitted on 04/14/17 with progressive weakness and shortness of breath. During the course of his hospitalization, he reported some vague abdominal pain and a nonenhanced abdominopelvic CT was performed. Testing revealed thickening within the proximal small bowel suggestive of possible inflammatory vs neoplastic process such as lymphoma. He states he did have a prior endoscopy greater than 5 years ago but he is unclear as to where it was performed or what the findings were at that time. In regard to symptoms, he reports bilateral lower quadrant pain for which he rates as a 4/10 in intensity. Denies any associated symptoms such as nausea or vomiting, fever or chills, diarrhea, constipation, melena or hematochezia. He does report persistent shortness of breath and weakness. H&H on arrival was noted to be 11.0 and 34.3. Renal panel has been abnormal with slight increase in BUN and creatinine which were noted to be [address] George has been consulted and is following the patient in this regard. Past Medical/Surgical History Medical Problems: (1) Diplopia Status: Acute (2) Peripheral edema Status: Acute (3) Shortness of breath Status: Acute (4) Sinusitis Status: Acute Past Medical History: 1. GERD 2. Bronchitis 3. Anemia 4. Headache 5. Vitamin D deficiency 6. Diverticulosis Past Surgical History: 1. Back surgery 2. Cholecystectomy 3. FFS Family History Cancer Diabetes mellitus Heart disease Hypertension Social History Smoking Status: Never Smoker Drug Use: none Marital Status: Housing Status: lives with significant other Occupation Status: retired Allergies Coded Allergies: Lisinopril (Verified Allergy, Unknown, HIVES, 04/14/17) Lovastatin (Verified Allergy, Unknown, LEG CRAMPS, 04/14/17) Rofecoxib (Verified Allergy, Unknown, UNKNOWN, 04/14/17) Simvastatin (Verified Allergy, Unknown, LEG CRAMPS, 04/14/17) Methadone (Verified Adverse Reaction, Unknown, HALUCINATIONS, AGITATION, HEADACHES, 04/14/17) Current Medications Home Meds and Scripts Medications Dose Route/Sig Max Daily Dose Days Date Category Dose Instructions Cipro (Ciprofloxacin) 250 Mg Tab 250 Mg PO BID 04/14/17 Reported Milk of Magnesia (Magnesium Hydroxide) 30 Ml Susp 30 Ml PO Q6H PRN 04/06/17 Rx Docusate Sodium 100 Mg Cap 100 Mg PO BID 04/06/17 Rx Lidocaine 1 Patch Tdsy 1 Patch TD QAM 04/06/17 Rx Can use 1-2 patches at a time Amoxicillin/Clavulanate P (Amoxicillin & Pot Clavulanate) 1 Tab Tab 500 Mg PO BIDM 04/06/17 Rx Vitamin B-1 (Thiamine HCl) 100 Mg Tab 200 Mg PO BID 04/06/17 Rx Miralax (Polyethylene) 17 Gm Pow 17 Gm PO QAM 04/06/17 Rx [place] Nasal [place] (Saline) 0.65 % Spr 4 Sprays NA Q1HWA PRN 04/06/17 Rx Fluticasone Propionate 50 Mcg/Act Spr 2 Sprays NA BID 14 04/06/17 Rx Mucinex Ext Rel (Guaifenesin) 600 Mg Tabcr 1,200 Mg PO Q12 04/06/17 Rx Amlodipine Besylate 5 Mg Tab 10 Mg PO QAM 04/06/17 Rx Apresoline (Hydralazine Hcl) 25 Mg Tab 50 Mg PO TID 04/06/17 Rx Coreg (Carvedilol) 25 Mg Tab 25 Mg PO BID 04/06/17 Rx Imdur Ext Rel (Isosorbide Mononitrate) 30 Mg Tabcr 60 Mg PO DAILY 04/06/17 Rx Vitamin D3 (Cholecalciferol) 1,000 Unit Tab 2,000 Inter.unit PO QAM 90 03/31/17 Reported Aspirin Ec (Aspirin) 81 Mg Tab 81 Mg PO QAM 03/31/17 Reported Novolin N Relion (Insulin Isophane (Human)) 100 Unit/Ml Inj 10 Units SQ QPM 03/31/17 Reported Precose (Acarbose) 25 Mg Tab 25 Mg PO DAILY 03/31/17 Reported Review of Systems Constitutional: + see HPI Eyes: No problem reported ENT: No trouble swallowing, No pain on swallowing Respiratory: + see HPI Cardiac: No chest pain, No palpitations Abdomen: + see HPI Musculoskeletal: + swelling Male : No problem reported Neuro: + see HPI Psych: + depression symptoms (reports frustration with hospitalization and ill at home) Skin: No problem reported Physical Exam Date Time Temp Pulse Resp B/P (MAP) Pulse Ox O2 Delivery O2 Flow Rate FiO2 04/17/17 08:16 56 18 86 Room Air 04/17/17 08:00 Nasal Cannula 3.0 04/17/17 07:46 36.5 61 20 108/73 91 3.0 61 04/17/17 06:53 36.5 61 20 108/63 (78) 91 3.0 04/17/17 00:15 Nasal Cannula 3.0 04/16/17 22:55 35.6 54 28 103/59 (74) 91 Nasal Cannula 3.0 04/16/17 21:14 55 18 117/61 (79) 95 Nasal Cannula 3.0 04/16/17 18:22 36.3 54 20 104/62 (76) 93 Nasal Cannula 3.0 04/16/17 16:00 93 Nasal Cannula 2.0 04/16/17 15:42 93 Nasal Cannula 2.0 04/16/17 15:37 36.3 56 18 111/58 (75) 88 Room Air 04/16/17 12:00 Nasal Cannula 2.0 04/16/17 10:53 36.5 58 17 119/63 (81) 93 Nasal Cannula 3.0 General Appearance: no apparent distress Eyes: EOMI ENT: hearing grossly normal Neck: supple Respiratory/Chest: lungs clear, + decreased breath sounds (bases), + inspiration (e) Cardiovascular: regular rate, rhythm, no gallop, no murmur Abdomen: normal bowel sounds, soft, + tenderness (RUQ) Extremities: + swelling Neurologic/Psych: alert, normal mood/affect, oriented x 3 Skin: warm/dry Laboratory Results Last 24 Hours Test 04/16/17 10:55 04/16/17 16:05 04/16/17 17:05 04/16/17 18:50 Bedside Glucose 309 mg/dl 330 mg/dl Sodium Level 131 mmol/L Potassium Level mmol/L 4.6 mmol/L Chloride Level 101 mmol/L Carbon Dioxide Level 18 mmol/L Anion Gap 12.0 mmol/L Blood Urea Nitrogen 89 mg/dl Creatinine 3.60 mg/dl Est Creatinine Clear Calc Drug Dose 18.4 ml/min Estimated GFR () 17.3 Estimated GFR (Non- 14.9 BUN/Creatinine Ratio 24.6 Random Glucose 288 mg/dl Calcium Level 6.9 mg/dl Phosphorus Level 3.8 mg/dl Albumin 2.5 gm/dl Test 04/16/17 20:36 04/16/17 23:07 04/17/17 00:32 04/17/17 04:09 Bedside Glucose 310 mg/dl 246 mg/dl 238 mg/dl 255 mg/dl Test 04/17/17 06:01 04/17/17 07:22 Bedside Glucose 238 mg/dl Sodium Level 133 mmol/L Potassium Level 4.5 mmol/L Chloride Level 100 mmol/L Carbon Dioxide Level 20 mmol/L Anion Gap 13.0 mmol/L Blood Urea Nitrogen 102 mg/dl Creatinine 4.20 mg/dl Est Creatinine Clear Calc Drug Dose 15.8 ml/min Estimated GFR () 14.4 Estimated GFR (Non- 12.4 BUN/Creatinine Ratio 24.2 Random Glucose 233 mg/dl Calcium Level 7.1 mg/dl Phosphorus Level 4.0 mg/dl Albumin 2.4 gm/dl Impression Patient is a 81 year old male with a history of recent sinus surgery admitted with progressive weakness and shortness of breath as well as new onset of abdominal pain with abnormal CT imaging suggestive of inflammation vs neoplastic process within the proximal small bowel. Plan 1. NPO for now. 2. EGD for further evaluation with Dr. Kent today. 3. Continue Protonix 40 mg BID. 4. Additional recommendations pending results of testing. Thank you for allowing us to participate in the care of this pleasant patient. If you have any questions or concerns, please do not hesitate to contact us. Reviewed note from RAUL Weldon Patient suffered cardiopulmonary arrest in radiology and was pronouced in the ICU.
--- NOTE | 2017-04-17 10:51 | Nephrology Progress Note ---
Nephrology Progress Note Date of Service Apr 17, 2017. Chief Complaint GILDARDO/CKD Subjective No acute events overnight. Mert is feeling better this AM. Breathing has improved. Abdomen is less distended. He denies any urinary complaints. No fevers or chills. Review of Systems A complete review of systems was performed. Pertinent positives are noted above. All other systems are negative. Vital Signs Last 8 Hrs Date Time Temp Pulse Resp B/P (MAP) Pulse Ox O2 Delivery O2 Flow Rate FiO2 04/17/17 08:16 56 18 86 Room Air 04/17/17 08:00 Nasal Cannula 3.0 04/17/17 07:46 36.5 61 20 108/73 91 3.0 61 04/17/17 06:53 36.5 61 20 108/63 (78) 91 3.0 Last Recorded Weight Weight (Kilograms): 100.000 Physical Exam General Appearance: WD/WN, no apparent distress Head: normocephalic, atraumatic Eyes: normal inspection, sclerae normal ENT: normal ENT inspection, pharynx normal Neck: supple, + JVD Respiratory/Chest: lungs clear, no respiratory distress, no accessory muscle use, + rales (few scattered) Cardiovascular: regular rate, rhythm, no gallop Abdomen/GI: soft, + tenderness, + distended Extremities/Musculoskelatal: normal inspection, + pedal edema Neurologic/Psych: alert, normal mood/affect Family History Cancer Diabetes mellitus Heart disease Hypertension Social History Smoking Status: Former smoker Drug Use: none Marital Status: Housing Status: lives with significant other Occupation: retired Laboratory Results Past 24 Hours 04/16/17 16:05 04/16/17 17:05 04/17/17 07:22 Test 04/16/17 10:55 04/16/17 16:05 04/16/17 18:50 04/16/17 20:36 Bedside Glucose 309 mg/dl (70-99) 330 mg/dl (70-99) 310 mg/dl (70-99) Anion Gap 12.0 mmol/L (3-11) Est Creatinine Clear Calc Drug Dose 18.4 ml/min Estimated GFR () 17.3 Estimated GFR (Non- 14.9 BUN/Creatinine Ratio 24.6 (10-20) Calcium Level 6.9 mg/dl (8.5-10.1) Phosphorus Level 3.8 mg/dl (2.5-4.9) Albumin 2.5 gm/dl (3.4-5.0) Test 04/16/17 23:07 04/17/17 00:32 04/17/17 04:09 04/17/17 06:01 Bedside Glucose 246 mg/dl (70-99) 238 mg/dl (70-99) 255 mg/dl (70-99) 238 mg/dl (70-99) Test 04/17/17 07:22 Anion Gap 13.0 mmol/L (3-11) Est Creatinine Clear Calc Drug Dose 15.8 ml/min Estimated GFR () 14.4 Estimated GFR (Non- 12.4 BUN/Creatinine Ratio 24.2 (10-20) Calcium Level 7.1 mg/dl (8.5-10.1) Phosphorus Level 4.0 mg/dl (2.5-4.9) Albumin 2.4 gm/dl (3.4-5.0) Allergies Coded Allergies: Lisinopril (Verified Allergy, Unknown, HIVES, 04/14/17) Lovastatin (Verified Allergy, Unknown, LEG CRAMPS, 04/14/17) Rofecoxib (Verified Allergy, Unknown, UNKNOWN, 04/14/17) Simvastatin (Verified Allergy, Unknown, LEG CRAMPS, 04/14/17) Methadone (Verified Adverse Reaction, Unknown, HALUCINATIONS, AGITATION, HEADACHES, 04/14/17) Medications Current Inpatient Medications Medications (Trade) Dose Ordered Sig/Sloan Route Start Time Stop Time Status Last Admin Dose Admin Enteral Nutritional Formula (Boost Glucose Control) 1 can TID PO 04/15/17 09:00 05/15/17 08:59 04/16/17 08:02 1 CAN Aspirin (Ecotrin Tab) 81 mg QAM PO 04/15/17 09:00 05/15/17 08:59 04/17/17 07:52 81 MG Carvedilol (Coreg Tab) 25 mg BID PO 04/15/17 09:00 05/15/17 08:59 04/17/17 07:53 25 MG Cholecalciferol (Vitamin D Tab) 2,000 inter.unit QAM PO 04/15/17 09:00 05/15/17 08:59 04/17/17 07:54 2,000 INTER.UNIT Docusate Sodium (coLACE CAP) 100 mg BID PO 04/15/17 09:00 05/15/17 08:59 04/17/17 07:52 100 MG Fluticasone Propionate (Flonase Nasal [place]) 2 sprays BID NA 04/15/17 09:00 05/15/17 08:59 04/17/17 07:52 2 SPRAYS Isosorbide Mononitrate (Imdur Ext Rel Tab) 60 mg DAILY PO 04/15/17 09:00 05/15/17 08:59 04/17/17 07:54 60 MG Lidocaine (Lidoderm Patch 5%) 1 patch QAM TD 04/15/17 09:00 05/15/17 08:59 04/17/17 07:54 1 PATCH Thiamine HCl (Vitamin B-1 Tab) 200 mg BID PO 04/15/17 09:00 05/15/17 08:59 04/17/17 07:54 200 MG Miscellaneous (Remove Lidoderm Patch) 1 ea DAILY@21 N/A 04/15/17 21:00 05/15/17 20:59 04/16/17 21:24 1 EA Heparin Sodium (Porcine) (Heparin Sq 5000 Unit/0.5ml) 5,000 unit Q8H SQ 04/15/17 06:00 05/15/17 05:59 04/17/17 06:04 5,000 UNIT Acetaminophen (Tylenol Tab) 650 mg Q4H PRN PO 04/14/17 23:45 05/14/17 23:44 04/16/17 15:57 650 MG Al Hydrox/Mg Hydrox/Simethicone (Maalox Max Susp) 15 ml Q4H PRN PO 04/14/17 23:45 05/14/17 23:44 Magnesium Hydroxide (Milk Of Magnesia Susp) 30 ml Q6H PRN PO 04/14/17 23:45 05/14/17 23:44 04/16/17 16:02 30 ML Polyethylene (Miralax Powder Packet) 17 gm DAILY PRN PO 04/14/17 23:45 05/14/17 23:44 04/16/17 16:01 17 GM Ondansetron HCl (Zofran Inj) 4 mg Q6H PRN IV 04/14/17 23:45 05/14/17 23:44 Hydromorphone HCl (Dilaudid Inj) 0.5 mg Q3H PRN IV 04/15/17 00:00 04/29/17 00:00 04/17/17 07:55 0.5 MG Albuterol Sulfate (Ventolin 0.083% 2.5MG/3ML Neb) 2.5 mg Q6R PRN INH 04/15/17 00:00 05/15/17 00:00 04/17/17 08:16 2.5 MG Glucose (Glucose 40% Gel) 15-30 GRAMS 15 GRAMS... UD PRN PO 04/15/17 01:15 05/15/17 01:14 Glucose (Glucose Chew Tab) 4-8 Tablets 4 Tabl... UD PRN PO 04/15/17 01:15 05/15/17 01:14 Dextrose (Dextrose 50% 50ML Syringe) 25-50ML OF 50% DW IV FOR... UD PRN IV 04/15/17 01:15 05/15/17 01:14 Glucagon (Glucagon Inj) 1 mg UD PRN SQ 04/15/17 01:15 05/15/17 01:14 Sodium Chloride ([place] Nasal [place]) 2 sprays Q2HWA NA 04/15/17 18:00 05/15/17 17:59 04/17/17 09:50 2 SPRAYS Hydralazine HCl (Apresoline Tab) 100 mg TID PO 04/15/17 21:00 05/15/17 08:59 04/17/17 07:53 100 MG Insulin Glargine (Lantus Solostar Pen) 10 unit QAM SC 04/17/17 08:00 05/17/17 07:59 04/17/17 08:16 5 UNIT Pantoprazole Sodium (Protonix Tab) 40 mg BID PO 04/17/17 08:00 05/17/17 07:59 04/17/17 07:54 40 MG Insulin Aspart (novoLOG ASPART) SLIDING SCALE G... Q6 SC 04/17/17 04:00 05/17/17 03:59 04/17/17 06:04 2 UNITS Impression (1) Acute renal insufficiency (2) Chronic kidney disease, stage IV (severe) (3) Small bowel lesion (4) Hypertension (5) Proteinuria Mr. Mert Foley is an 81-year-old male with acute on chronic renal insufficiency. He has had progressive stage 4 chronic kidney disease attributed to diabetes, hypertension as well as a history of chronic NSAID use. Patient has a history of recent pansinusitis for which he completed a course Augmentin following endoscopic sinus surgery. Volume status appears replete and blood pressure is appropriate. I suspect there is some component of acute on chronic diastolic congestive heart failure. I would suggest to maintain a slightly negative fluid balance. CT of the abdomen and pelvis documented lesion in small bowel and GI has been consulted. Kidneys show evidence of chronic changes no evidence of obstruction. Urinalysis documented hyaline casts otherwise acellular microscopy. He has 3+ protein and 2+ group glucose in his urine. There is a history of a faint monoclonal spike reported on both SPEP and UPEP per Dr. Britt's records. Recommendations -- Furosemide 40 mg PO this AM -- Goal to maintain slightly negative fluid balance -- Medications are appropriately dosed for renal function -- GI consult pending -- No emergent need for SPONSORSHIP MANAGER -- Repeat SPEP/UPEP, immunofixation pending
[2017-04-17] MEDS ORDERED: FUROSEMIDE 40 MG TAB PO ONE (11:00)
[2017-04-17] MEDS ORDERED: RAPID SEQUENCE INDUCTION BAG ONE (11:59)
[2017-04-17] MEDS ORDERED: RAPID SEQUENCE INDUCTION BAG PRN (12:00)
--- NOTE | 2017-04-17 12:12 | Medical Consult ---
Consultation Note Date of Service 11:50am Apr 17, 2017 Consultation Note CODE BLUE: Time 11:50am Called to room Xray 4 for code blue Code being run by nursing/xray staff on arrival. I took over on arrival Code Status: Full per Hospitalist Brief summary: 81 yr old male in xray for KUB went apneic without pulse. On arrival no pulse, compressions in progress and BVM bagging. Given 2 rounds Epi with continuous compressions. ROSC shortly there-after with some waking though confused and agonal respirations. I handed over management of patient to Dr Callejas (ICU) while I intubated patient. Endotracheal Intubation Indication: Respiratory failure The patient was being bagged by respiratory with BVM. Suction, airway equipment , RSI drugs, respiratory equipment, and appropriate personnel were prepared prior to the initiation of the procedure. A time out was taken. Induction was performed with Etomidate 30mg, Succinylcholine 150mg. After observing the clinical benefit of the medications, the airway was easily visualized utilizing a Glidescope #4 blade. A 7.5 size ETT tube was placed atraumatically to 24 cm using standard technique. The cuff inflated without signs of malfunction. There were bilateral breath sounds, positive colormetric change, no gastric sounds, a good capnography waveform, and post procedure pulse oximetry was 100%. Post intubation sedation and paralysis was administered using none - deferred to Fishing Game Warden. There were no complications. Critical Care: I have personally spent greater than 30 minutes of critical care time in the direct management of this patient. This was a life/limb threatening event. This includes time spent evaluating patient, direct bedside care, chart review, placing orders, interpretation of diagnostic studies, discussion with consultants, patient, and family members, as well as other required patient management activities. This 30 minutes is in excess of all separately billable procedures. Russell Angeles MD Emergency Medicine
--- NOTE | 2017-04-17 12:22 | DIAGNOSTIC IMAGING REPORT ---
CHEST 1 VW FRONT-NOT PORTABLE CLINICAL HISTORY: Respiratory failure COMPARISON STUDY: 04/16/2017 FINDINGS: There is an endotracheal tube 48 mm above the luis. The heart is enlarged. There is slight elevation of the interstitium. There are patchy bibasilar left greater than right airspace opacities, atelectatic versus inflammatory.[ IMPRESSION: 1. Persistent cardiomegaly 2. Persistent bibasilar airspace opacities, atelectatic versus inflammatory 3. Interval placement of an endotracheal tube 48 mm above the luis Electronically signed by: Darren Campos M.D. 04/17/2017 12:21 PM Dictated Date/Time: 04/17/2017 12:19 PM
--- NOTE | 2017-04-17 12:24 | DIAGNOSTIC IMAGING REPORT ---
KUB CLINICAL HISTORY: CONSTIPATED pain COMPARISON STUDY: CT 04/16/2017 FINDINGS: The soft tissues, psoas shadows, renal outlines and intestinal gas pattern appear normal. There is no evidence for bowel obstruction. No abnormal abdominal calcifications are seen. IMPRESSION: Nonobstructive bowel pattern. Unremarkable postoperative changes to the lumbar spine. Electronically signed by: Rufus Pham M.D. 04/17/2017 12:22 PM Dictated Date/Time: 04/17/2017 12:21 PM
[2017-04-17] MEDS ORDERED: PHENYLEPHRINE IV PUSH KIT FOR ED IV ONE (12:36)
[2017-04-17] MEDS ORDERED: PHENYLEPHRINE 100MCG/ML 5ML SYR IV ONE (12:45)
--- NOTE | 2017-04-17 12:49 | Family Medicine Progress Note ---
Progress Note Date of Service Apr 17, 2017. Subjective 7:30 AM: I saw the patient up in room W459-2. He said he was feeling better, especially in regards to his abdominal pain. He reported feeling tired overall, which was similar to yesterday. I had ordered 5 units of Lantus in the AM since his BSG has been persistently high. He had been NPO overnight but did not feel hungry or thirsty. 10:45 AM: We saw him on rounds (with attending Dr Blood). He was still speaking to us and said he felt ok. Denied any change in his pain, but still reported weakness. He said his abdominal pain was located more in the lower abdomen. He does have a hx of constipation and so AXR was ordered to assess this , and an upright CXR as well. 11:45 AM: A code purple was called, which then turned into a code blue. Per ict support technicians, the pt was in XRay, he had apparently had his CXR and was laying supine, which he said he could not do well. They shot the XRay, then they sat him up, and took the Abdominal XRay, and then he sat up to urinate. He then became unresponsive so a code was called. There was no mention of if he had chest pain at the time. He had only reported saying his breathing was not good when flat. During the code blue, he was intubated, and received chest compressions. He had 2 doses of epinephrine total and achieved ROSC. 12:00 PM: I called the patient's daughter, she did not answer, so I left a voicemail saying to call me back. I called his son, and he answered, and I told him to come in. In the meantime, the patient was transferred to the ICU. He was reviewed by the Acid Cleaner Dr Callejas. Echo was completed, and central line and arterial line were going to be placed. He was also placed on Levophed and his BP improved. 12:45 PM: All family had arrived, and myself and Dr Blood updated them. The son who had also seen him today reported the pt also told him this morning that he felt better. he also thought the patient looked better in the morning. They did not have any further questions or concerns. 2:15 PM: Dr Blood and I checked on the patient again and discussed his care with Dr Callejas. The top differentials included GI bleed versus Pulmonary Embolism. RAUL Cuadra of Palliative Care was also involved. Of note, the patients OG tube had red bloody secretion. 3:20 PM: Staci informed me that the patients family wanted to proceed with comfort measures only. The patients is in [place] and did not want to see him suffering. It was requested that the pt be extubated. 3:25 PM: Dr Blood and I went to see the patient. His daughter and son both agreed with proceeding with comfort measures. Active orders were stopped and Morphine & Ativan were ordered for as needed. Additional Comments: Unable to obtain ROS due to altered mental status. Medications Current Inpatient Medications Medications (Trade) Dose Ordered Sig/Sloan Route Start Time Stop Time Status Last Admin Dose Admin Enteral Nutritional Formula (Boost Glucose Control) 1 can TID PO 04/15/17 09:00 05/15/17 08:59 04/16/17 08:02 1 CAN Aspirin (Ecotrin Tab) 81 mg QAM PO 04/15/17 09:00 05/15/17 08:59 04/17/17 07:52 81 MG Carvedilol (Coreg Tab) 25 mg BID PO 04/15/17 09:00 05/15/17 08:59 04/17/17 07:53 25 MG Cholecalciferol (Vitamin D Tab) 2,000 inter.unit QAM PO 04/15/17 09:00 05/15/17 08:59 04/17/17 07:54 2,000 INTER.UNIT Docusate Sodium (coLACE CAP) 100 mg BID PO 04/15/17 09:00 05/15/17 08:59 04/17/17 07:52 100 MG Fluticasone Propionate (Flonase Nasal [place]) 2 sprays BID NA 04/15/17 09:00 05/15/17 08:59 04/17/17 07:52 2 SPRAYS Isosorbide Mononitrate (Imdur Ext Rel Tab) 60 mg DAILY PO 04/15/17 09:00 05/15/17 08:59 04/17/17 07:54 60 MG Lidocaine (Lidoderm Patch 5%) 1 patch QAM TD 04/15/17 09:00 05/15/17 08:59 04/17/17 07:54 1 PATCH Thiamine HCl (Vitamin B-1 Tab) 200 mg BID PO 04/15/17 09:00 05/15/17 08:59 04/17/17 07:54 200 MG Miscellaneous (Remove Lidoderm Patch) 1 ea DAILY@21 N/A 04/15/17 21:00 05/15/17 20:59 04/16/17 21:24 1 EA Heparin Sodium (Porcine) (Heparin Sq 5000 Unit/0.5ml) 5,000 unit Q8H SQ 04/15/17 06:00 05/15/17 05:59 04/17/17 06:04 5,000 UNIT Acetaminophen (Tylenol Tab) 650 mg Q4H PRN PO 04/14/17 23:45 05/14/17 23:44 04/16/17 15:57 650 MG Al Hydrox/Mg Hydrox/Simethicone (Maalox Max Susp) 15 ml Q4H PRN PO 04/14/17 23:45 05/14/17 23:44 Magnesium Hydroxide (Milk Of Magnesia Susp) 30 ml Q6H PRN PO 04/14/17 23:45 05/14/17 23:44 04/16/17 16:02 30 ML Polyethylene (Miralax Powder Packet) 17 gm DAILY PRN PO 04/14/17 23:45 05/14/17 23:44 04/16/17 16:01 17 GM Ondansetron HCl (Zofran Inj) 4 mg Q6H PRN IV 04/14/17 23:45 05/14/17 23:44 Hydromorphone HCl (Dilaudid Inj) 0.5 mg Q3H PRN IV 04/15/17 00:00 04/29/17 00:00 04/17/17 07:55 0.5 MG Albuterol Sulfate (Ventolin 0.083% 2.5MG/3ML Neb) 2.5 mg Q6R PRN INH 04/15/17 00:00 05/15/17 00:00 04/17/17 08:16 2.5 MG Glucose (Glucose 40% Gel) 15-30 GRAMS 15 GRAMS... UD PRN PO 04/15/17 01:15 05/15/17 01:14 Glucose (Glucose Chew Tab) 4-8 Tablets 4 Tabl... UD PRN PO 04/15/17 01:15 05/15/17 01:14 Dextrose (Dextrose 50% 50ML Syringe) 25-50ML OF 50% DW IV FOR... UD PRN IV 04/15/17 01:15 05/15/17 01:14 Glucagon (Glucagon Inj) 1 mg UD PRN SQ 04/15/17 01:15 05/15/17 01:14 Sodium Chloride ([place] Nasal [place]) 2 sprays Q2HWA NA 04/15/17 18:00 05/15/17 17:59 04/17/17 09:50 2 SPRAYS Hydralazine HCl (Apresoline Tab) 100 mg TID PO 04/15/17 21:00 05/15/17 08:59 04/17/17 07:53 100 MG Insulin Glargine (Lantus Solostar Pen) 10 unit QAM SC 04/17/17 08:00 05/17/17 07:59 04/17/17 08:16 5 UNIT Pantoprazole Sodium (Protonix Tab) 40 mg BID PO 04/17/17 08:00 05/17/17 07:59 04/17/17 07:54 40 MG Insulin Aspart (novoLOG ASPART) SLIDING SCALE G... Q6 SC 04/17/17 04:00 05/17/17 03:59 04/17/17 06:04 2 UNITS Pantoprazole Sodium 40 mg/ Dextrose 100 ml @ 20 mls/hr Q5H IV 04/17/17 13:00 05/17/17 12:59 Norepinephrine Bitartrate 8 mg/ Dextrose 508 ml @ 0 mls/hr Q0M PRN IV 04/17/17 13:15 05/17/17 13:14 Objective Vital Signs Date Time Temp Pulse Resp B/P (MAP) Pulse Ox O2 Delivery O2 Flow Rate FiO2 04/17/17 12:56 100 04/17/17 08:16 56 18 86 Room Air 04/17/17 08:00 Nasal Cannula 3.0 04/17/17 07:46 36.5 61 20 108/73 91 3.0 61 04/17/17 06:53 36.5 61 20 108/63 (78) 91 3.0 04/17/17 00:15 Nasal Cannula 3.0 04/16/17 22:55 35.6 54 28 103/59 (74) 91 Nasal Cannula 3.0 04/16/17 21:14 55 18 117/61 (79) 95 Nasal Cannula 3.0 04/16/17 18:22 36.3 54 20 104/62 (76) 93 Nasal Cannula 3.0 04/16/17 16:00 93 Nasal Cannula 2.0 04/16/17 15:42 93 Nasal Cannula 2.0 04/16/17 15:37 36.3 56 18 111/58 (75) 88 Room Air Physical Exam Notes: (Exam in AM on rounds) GENERAL: Awake, alert, well-appearing, in no acute distress. Speaking in full sentences. HENT: Normocephalic, atraumatic. EYES: Normal conjunctiva. Sclera non-icteric. NECK: No JVD. RESPIRATORY: Clear to auscultation. CARDIAC: Regular rate, normal rhythm. Extremities warm and well perfused. Pulses equal. ABDOMEN: Soft, non-distended. No tenderness to palpation. No rebound or guarding. MUSCULOSKELETAL: Chest examination reveals no tenderness. LOWER EXTREMITIES: Calves are equal size bilaterally and non-tender. No edema. No discoloration. NEURO: Normal sensorium. No sensory or motor deficits noted. SKIN: No rash or jaundice noted. Laboratory Results Last 24 Hours Test 04/16/17 16:05 04/16/17 17:05 04/16/17 18:50 04/16/17 20:36 Sodium Level 131 mmol/L Potassium Level mmol/L 4.6 mmol/L Chloride Level 101 mmol/L Carbon Dioxide Level 18 mmol/L Anion Gap 12.0 mmol/L Blood Urea Nitrogen 89 mg/dl Creatinine 3.60 mg/dl Est Creatinine Clear Calc Drug Dose 18.4 ml/min Estimated GFR () 17.3 Estimated GFR (Non- 14.9 BUN/Creatinine Ratio 24.6 Bedside Glucose 330 mg/dl 310 mg/dl Random Glucose 288 mg/dl Calcium Level 6.9 mg/dl Phosphorus Level 3.8 mg/dl Albumin 2.5 gm/dl Test 04/16/17 23:07 04/17/17 00:32 04/17/17 04:09 04/17/17 06:01 Bedside Glucose 246 mg/dl 238 mg/dl 255 mg/dl 238 mg/dl Test 04/17/17 07:22 04/17/17 07:52 04/17/17 14:03 Sodium Level 133 mmol/L Potassium Level 4.5 mmol/L Chloride Level 100 mmol/L Carbon Dioxide Level 20 mmol/L Anion Gap 13.0 mmol/L Blood Urea Nitrogen 102 mg/dl Creatinine 4.20 mg/dl Est Creatinine Clear Calc Drug Dose 15.8 ml/min Estimated GFR () 14.4 Estimated GFR (Non- 12.4 BUN/Creatinine Ratio 24.2 Random Glucose 233 mg/dl Calcium Level 7.1 mg/dl Phosphorus Level 4.0 mg/dl Albumin 2.4 gm/dl Bedside Glucose 250 mg/dl Assessment and Plan 81 yo M with CKD who initially presented with fatigue and shortness of breath, found to have a duodenitis (potentially from chronic NSAID use), who is now s/p cardiac arrest and is sedated and intubated, now for comfort measures only. Cardiac Arrest - Remains in ICU, Appreciate Acid Cleaner management - Will proceed with comfort measures, as per family request. - Likely cause pulmonary embolism versus GI bleed. . Pain / Dyspnea - Morphine 2mg IV q1h PRN Disposition - Can remain in ICU once extubated, and transferred to if needed. Resident Physician Supervision Note: I was present with during the history and exam. I discussed the case with the resident and agree with the findings and plan as documented in the note. Any exceptions or clarifications are listed here: The patient was first seen this morning in his room on the fourth floor. The patient stated that his abdominal pain is actually better when compared to yesterday. The patient was on oxygen via nasal cannula, and he had 1 episode of desaturation on room air recorded in the EMR; he denied any shortness of breath at rest and was able to speak in full sentences without stopping. The patient appears to be seen by the GI service and EGD was pending this morning. A chest x-ray and a flat plate of the abdomen were added. I responded with Dr. Hickey to the CODE BLUE as described above. Upon my arrival, members of the code team had artery assumed care including Dr. Callejas from the critical care team. Resuscitation produced a continuous pulse and respirations; the patient was subsequently sedated, intubated, and transferred to the ICU. Dr. Hickey and myself were able to speak to the family in the ICU conference room at which time we updated the family with regards to the events of the morning. Subsequent our conversation, Dr. Callejas had another meeting with the family after which the patient's family elected for comfort care only. The family was able to contact the patient's who confirmed that this would be the wishes of the patient. Palliative care was also consulted and they also met with the family. Documented By: Devin Blood
[2017-04-17] MEDS ORDERED: PANTOprazole INJ 80 MG in DEXTROSE 5% 100ML IV STA (12:51)
[2017-04-17] MEDS ORDERED: MIDAZOLAM HCL 1 MG/ML 2ML VIAL ONE (12:55)
[2017-04-17] MEDS ORDERED: MIDAZOLAM HCL 5 MG/ML 1 ML VIAL IV ONE ×2 (13:00→18:23)
[2017-04-17] MEDS ORDERED: PANTOprazole INJ 40 MG in DEXTROSE 5% 100ML IV SCH (13:00)
[2017-04-17] MEDS ORDERED: FENTANYL CITRATE INJ 50 MCG/1 ML 2 ML VIAL IV ONE (13:00)
[2017-04-17] MEDS ORDERED: NOREPINEPHRINE BIT INJ 8 MG in DEXTROSE 5% 500ML 500 ML IV PRN (13:15)
[2017-04-17] MEDS ORDERED: PERFLUTREN LIPID MICROSPHERE (DEFINITY) IV ONE (13:35)
--- NOTE | 2017-04-17 13:42 | DIAGNOSTIC IMAGING REPORT ---
CHEST ONE VIEW PORTABLE CLINICAL HISTORY: Intubation, central line placement, OG tube placement tube position COMPARISON STUDY: 04/17/2017 12:17 PM FINDINGS: Endotracheal tube 2.5 cm above the luis. Mild stable cardia megaly. Parenchymal infiltrate left base similar. Lungs otherwise appear clear. Slight plantar lateral costophrenic angle on the right. IMPRESSION: Endotracheal tube 2.5 cm both luis. Stable cardiomegaly. Parenchymal infiltrate left base unchanged. Electronically signed by: Rufus Pham M.D. 04/17/2017 1:41 PM Dictated Date/Time: 04/17/2017 1:39 PM
--- NOTE | 2017-04-17 13:42 | ECHOCARDIOGRAM REPORT ---
*NOTICE TO RECEIVING CONSTITUTION PARTY AGENCY This information is strictly Confidential and protected under [place] law. [place] law prohibits you from making any further disclosure of this information unless further disclosure is expressly permitted by the written consent of the person to whom it pertains or is authorized by law. A general authorization for the release of medical or other information is not sufficient for this purpose. Hospital accepts no responsibility if the information is made available to any other person, INCLUDING THE PATIENT. Interpretation Summary * Name: MISHA LARSON Study Date: 04/17/2017 12:33 PM BP: 108/73 mmHg * Patient Location: [facility] HR: 56 * : 1935 (M/d/yyyy) Gender: Male Height: 68 in * Age: 81 yrs Ethnicity: [place] Weight: 220 lb * Ordering Physician: Cleveland Gaston PA-C * Performed By: Brionna Stacy RDCS * * Reason For Study: Cardiac arrest * BSA: 2.1 m2 * -- Conclusions -- * 1. Normal LV size, mild concentric LVH. * 2. Hyperdynamic LV function. LVEF > 70%. No regional wall motion abnormalities. * 3. Moderately dilated RV. Normal RV function. * 4. Mild aortic valve sclerosis without stenosis. * 5. Pulmonic valve not well visualized but suggestion of attached thin, echolucent, mobile mass. Cannot rule out vegetation, thrombus. * 6. At least mild pulmonary hypertension. Est PASP > 36 mmHg. * 7. Compared with prior study on 04/15/2017: RV now dilated. Pulmonic valve better visualized. Procedure Details * A complete two-dimensional transthoracic echocardiogram was performed (2D, M-mode, Doppler and color flow Doppler). * The study was technically limited. * The study was technically difficult. * Limited views were obtained. * There were technical limitations due to patient'ssupine positioning while on mechanical ventilation * A contrast injection of Definity was performed to improve assessment of LV function. * Contrast was injected into an intravenous site in the left arm. * One vial of Definity ultrasound contrast was diluted in normal saline to a total volume of 10 ml. A total of '2' ml of solution was administered during imaging. * Lot # [id number] of Definity utilized for procedure. * Expiration date MAY 13. * The attending nurse who injected the contrast agent was Silvana Edgar RN. Left Ventricle * The left ventricle is grossly normal size. * There is mild concentric left ventricular hypertrophy. * Ejection Fraction = >70 %. * No regional wall motion abnormalities noted. Right Ventricle * The right ventricle is moderately dilated. * The right ventricular systolic function is normal as assessed by tricuspid annular plane systolic excursion (TAPSE) (normal >1.5 cm). Atria * The left atrial size is normal. * The right atrium is moderately dilated. Mitral Valve * The mitral valve leaflets appear thickened, but open well. * There is no mitral valve stenosis. * Significant mitral regurgitation is absent. Tricuspid Valve * The tricuspid valve is not well visualized, but is grossly normal. * There is no tricuspid stenosis. * There is trace tricuspid regurgitation. Aortic Valve * Aortic valve sclerosis mild, without significant aortic valvular stenosis. * The aortic valve opens well. * No hemodynamically significant valvular aortic stenosis. * There is no significant aortic regurgitation. Pulmonic Valve * The pulmonary valve is inadequately visualized, but the Doppler data is adequate for interpretation. * Pulmonic stenosis is absent. * There is no significant pulmonary regurgitation. Great Vessels * The aortic root is normal size. Pulmonic Valve * Possible echolucent, mobile structure involving pulmononic valve. Cannot rule out vegetation vs thrombus. MMode 2D Measurements and Calculations IVSd 1.2 cm LVIDd 3.7 cm LVIDs 2.0 cm LVPWd 1.6 cm IVS/LVPW 0.73 FS 47.2 % EDV(Teich) 59.7 ml ESV(Teich) 12.3 ml EF(Teich) 79.4 % EDV(cubed) 52.4 ml ESV(cubed) 7.7 ml EF(cubed) 85.3 % LV mass(C)d 185.7 grams LV mass(C)dI 87.3 grams/m\S\2 SV(Teich) 47.4 ml SI(Teich) 22.3 ml/m\S\2 SV(cubed) 44.7 ml SI(cubed) 21.0 ml/m\S\2 LVAd ap4 23.1 cm\S\2 LVLd ap4 6.9 cm EDV(MOD-sp4) 61.3 ml EDV(sp4-el) 65.7 ml LVAs ap4 11.0 cm\S\2 LVLs ap4 5.4 cm ESV(MOD-sp4) 17.6 ml ESV(sp4-el) 18.9 ml EF(MOD-sp4) 71.2 % EF(sp4-el) 71.2 % LVAd ap2 25.7 cm\S\2 LVLd ap2 7.5 cm EDV(MOD-sp2) 70.6 ml EDV(sp2-el) 74.3 ml LVAs ap2 10.0 cm\S\2 LVLs ap2 5.5 cm ESV(MOD-sp2) 14.6 ml ESV(sp2-el) 15.2 ml EF(MOD-sp2) 79.3 % EF(sp2-el) 79.5 % LVLd %diff 8.8 % EDV(MOD-bp) 68.4 ml LVLs %diff 2.4 % ESV(MOD-bp) 15.9 ml EF(MOD-bp) 76.7 % SV(MOD-sp4) 43.7 ml SI(MOD-sp4) 20.5 ml/m\S\2 SV(MOD-sp2) 56.0 ml SI(MOD-sp2) 26.3 ml/m\S\2 SV(MOD-bp) 52.5 ml SI(MOD-bp) 24.6 ml/m\S\2 SV(sp4-el) 46.7 ml SI(sp4-el) 22.0 ml/m\S\2 SV(sp2-el) 59.1 ml SI(sp2-el) 27.8 ml/m\S\2 Doppler Measurements and Calculations PA V2 max 73.8 cm/sec PA max PG 2.2 mmHg PA acc slope 587.8 cm/sec\S\2 PA acc time 0.11 sec TR max steven 294.3 cm/sec PA pr(Accel) 31.5 mmHg
[2017-04-17 14:29] LABS: INR 1.1 (0.9-1.1); PARTIAL THROMBOPLASTIN RATIO 1.2; PROTHROMBIN TIME (PATIENT) 11.3 SECONDS (9.0-12.0)
[2017-04-17 15:01] LABS: ALB/GLOB RATIO 0.7 (0.9-2); BUN/CREATININE RATIO 23.5 (10-20); CALCIUM 6.7 mg/dl (8.5-10.1); CREATININE 4.6 mg/dl (0.60-1.40); MAGNESIUM 2.7 mg/dl (1.8-2.4); PHOSPHORUS 4.6 mg/dl (2.5-4.9); POTASSIUM 4.8 mmol/L (3.5-5.1)
[2017-04-17 15:20] LABS: BETA-HYDROXYBUTYRATE 8.59 mg/dL (0.2-2.81)
[2017-04-17] MEDS ORDERED: MoRPHine SULFATE 2 MG/ML CARP IV PRN ×2 (15:45→16:45)
[2017-04-17] MEDS ORDERED: LORAZEPAM 2 MG/ML 1 ML VIAL IV PRN (15:45)
--- NOTE | 2017-04-17 15:58 | Palliative Care Consultation ---
Consultation Date of Consultation: Apr 17, 2017. Requesting Physician: Dr. Hickey Attending Physician: Dr. Edelmira Sarah Reason for Consultation: Goals of care History of Present Illness This 81 year old male patient presented to the ED three days ago with c/o dizziness, diplopia, and headache. History obtained from record as patient is intubated. He just recently had sinus surgery for pansinusitis, was on 14 day course of Augmentin. Apparently in the few days prior to arrival he was progressively weak with SOB and LE edema. In ED, CXR was clear, head CT showed post op changes. Admitted for weakness and hypoxia. Patient was reported some vague abdominal pain. CT showed thickening within the proximal small bowel suggestive of possible inflammatory vs neoplastic process such as lymphoma. Patient was seen by GI and was to have EGD later today. He went to radiology for a KUB and suffered cardiac arrest. He achieved ROSC and was brought to ICU. Echocardiogram was performed which showed EF >70% and "Pulmonic valve not well visualized but suggestion of attached thin, echolucent, mobile mass. Cannot rule out vegetation, thrombus." Question of possible PE/thrombus. Also possible GI perforation vs. bleed. Patient would need CT with contrast for diagnosis, but his creatinine is already >4, so possibility of needing dialysis after is likely. Per the family, patient was "non-compliant," and they did not think he would want to be on dialysis or tolerate it well. This information was described and explained by Dr. Callejas to the patient's four children- two daughters, two sons. I was present for the conversation. The family had a long discussion amongst themselves and with their mother (patient's ) on the phone. The family decided to not undergo further testing or procedures and they would like the patient to be extubated and comfort measures only. I discussed this with the family and with Dr. Blood & Edelmira. Comfort measures pursued. Past Medical/Surgical History Medical History: Htn DM HLD CKD stage IV Back pain, back surgery Falls/unsteady gait Social History Smoking Status: Never Smoker History of Alcohol Use: No Drug Use: none Marital Status: Housing Status: lives with significant other Occupation Status: retired Review of Systems unable to obtain due to patient condition Allergies Coded Allergies: Lisinopril (Verified Allergy, Unknown, HIVES, 04/14/17) Lovastatin (Verified Allergy, Unknown, LEG CRAMPS, 04/14/17) Rofecoxib (Verified Allergy, Unknown, UNKNOWN, 04/14/17) Simvastatin (Verified Allergy, Unknown, LEG CRAMPS, 04/14/17) Methadone (Verified Adverse Reaction, Unknown, HALUCINATIONS, AGITATION, HEADACHES, 04/14/17) Medications Current Inpatient Medications Medications (Trade) Dose Ordered Sig/Sloan Route Start Time Stop Time Status Last Admin Dose Admin Morphine Sulfate (MoRPHine SULFATE INJ) 1 mg Q1H PRN IV 04/17/17 15:45 05/01/17 15:44 UNV Lorazepam (Ativan Inj) 0.5 mg Q2H PRN IV 04/17/17 15:45 05/17/17 15:44 UNV Physical Exam Date Time Temp Pulse Resp B/P (MAP) Pulse Ox O2 Delivery O2 Flow Rate FiO2 04/17/17 15:35 100 04/17/17 12:56 100 04/17/17 08:16 56 18 86 Room Air 04/17/17 08:00 Nasal Cannula 3.0 04/17/17 07:46 36.5 61 20 108/73 91 3.0 61 04/17/17 06:53 36.5 61 20 108/63 (78) 91 3.0 04/17/17 00:15 Nasal Cannula 3.0 04/16/17 22:55 35.6 54 28 103/59 (74) 91 Nasal Cannula 3.0 04/16/17 21:14 55 18 117/61 (79) 95 Nasal Cannula 3.0 04/16/17 18:22 36.3 54 20 104/62 (76) 93 Nasal Cannula 3.0 04/16/17 16:00 93 Nasal Cannula 2.0 04/16/17 15:42 93 Nasal Cannula 2.0 General Appearance: no apparent distress, + pertinent finding (ventilated and sedated) Neck: no JVD Respiratory: no respiratory distress, no accessory muscle use, + pertinent finding (on mechanical ventilator) Cardiovascular: regular rate, rhythm, + bradycardia, + pertinent finding (on norepinephrine infusion) Abdomen: + pertinent finding (did not assess abdomen) Neurologic/Psychiatric: + pertinent finding (obtunded) Laboratory Results Last 24 Hours Test 04/16/17 16:05 04/16/17 17:05 04/16/17 18:50 04/16/17 20:36 Sodium Level 131 mmol/L Potassium Level mmol/L 4.6 mmol/L Chloride Level 101 mmol/L Carbon Dioxide Level 18 mmol/L Anion Gap 12.0 mmol/L Blood Urea Nitrogen 89 mg/dl Creatinine 3.60 mg/dl Est Creatinine Clear Calc Drug Dose 18.4 ml/min Estimated GFR () 17.3 Estimated GFR (Non- 14.9 BUN/Creatinine Ratio 24.6 Bedside Glucose 330 mg/dl 310 mg/dl Random Glucose 288 mg/dl Calcium Level 6.9 mg/dl Phosphorus Level 3.8 mg/dl Albumin 2.5 gm/dl Test 04/16/17 23:07 04/17/17 00:32 04/17/17 04:09 04/17/17 06:01 Bedside Glucose 246 mg/dl 238 mg/dl 255 mg/dl 238 mg/dl Test 04/17/17 07:22 04/17/17 07:52 04/17/17 14:03 Sodium Level 133 mmol/L 130 mmol/L Potassium Level 4.5 mmol/L 4.8 mmol/L Chloride Level 100 mmol/L 97 mmol/L Carbon Dioxide Level 20 mmol/L 20 mmol/L Anion Gap 13.0 mmol/L 13.0 mmol/L Blood Urea Nitrogen 102 mg/dl 108 mg/dl Creatinine 4.20 mg/dl 4.60 mg/dl Est Creatinine Clear Calc Drug Dose 15.8 ml/min 14.4 ml/min Estimated GFR () 14.4 12.9 Estimated GFR (Non- 12.4 11.1 BUN/Creatinine Ratio 24.2 23.5 Random Glucose 233 mg/dl 348 mg/dl Calcium Level 7.1 mg/dl 6.7 mg/dl Phosphorus Level 4.0 mg/dl 4.6 mg/dl Albumin 2.4 gm/dl 2.3 gm/dl Bedside Glucose 250 mg/dl Prothrombin Time 11.3 SECONDS Prothromb Time International Ratio 1.1 Activated Partial Thromboplast Time 31.2 SECONDS Partial Thromboplastin Ratio 1.2 Magnesium Level 2.7 mg/dl Total Bilirubin 0.5 mg/dl Aspartate Amino Transf (AST/SGOT) 37 U/L Alanine Aminotransferase (ALT/SGPT) 39 U/L Alkaline Phosphatase 53 U/L Troponin I 0.047 ng/ml Pro-B-Type Natriuretic Peptide 9001 pg/ml Total Protein 5.5 gm/dl Globulin 3.2 gm/dl Albumin/Globulin Ratio 0.7 Beta-Hydroxybutyric Acid 8.59 mg/dL Assessment & Plan Palliative Performance Scale: 10 % Problem list: Weakness Fatigue Sinusitis, 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 S/p cardiac arrest in radiology Abnormal finding on echocardiogram- "Pulmonic valve not well visualized but suggestion of attached thin, echolucent, mobile mass. Cannot rule out vegetation, thrombus." EF >70% Goals of care (Z51.5) Palliative care recommendations: discussed with patient's two sons, two daughters (who called the patient's ), Dr. Callejas, Dr. Hickey and Dr. Blood. -Per discussion with the family, we will pursue comfort measures only for this patient. -I would recommend morphine 2mg IV Q1h PRN pain or SOB. Would give 2mg now, extubate patient, and turn off levophed. This was all discussed in detail with the patient's family. They are in agreement. -Atropine 1% oph soln 4 drops SL Q2h PRN secretions. -Can add glycopyrrolate if needed. -If patient is stable after extubation, could transfer to [facility]. Thank you for allowing me to participate in the care of this patient. Please contact me if there are any further palliative care needs.
[2017-04-17] MEDS ORDERED: MoRPHine SULFATE 2 MG/ML CARP ONE (16:13)
[2017-04-17 16:17] LABS: ISTAT CARBON DIOXIDE 9 mEq/l (24-31); ISTAT CHLORIDE 121 mEq/L (101-112); ISTAT CREATININE 1.6 mg/dl (0.6-1.3); ISTAT HEMATOCRIT < 15 % (42-52); ISTAT IONIZED CALCIUM 0.47 mmol/l (1.12-1.32); ISTAT SODIUM 148 mEq/L (135-144)
--- NOTE | 2017-04-17 16:58 | Death Pronouncement Note ---
Pronouncement Note Date & Time of Apr 17, 2017. 4:39 PM (Germania Hickey MD) Pronouncement At time of pronouncement the patients pupils were fixed and dilated, there was no spontaneous respiratory effort, no palpable pulse, no audible heart tones, and no response to pain or voice. (Germania Hickey MD) Resident Physician Supervision Note: I was present with Dr. Hickey during the exam and agree with above. In addition, we spoke with family and answered all questions. certificate completed. Documented By: Devin Blood (Devin Blood,D.O.)
--- NOTE | 2017-04-17 16:59 | Death Summary ---
Summary of Admission Date Apr 15, 2017 at 00:04 (Germania Hickey MD) Date & Time of Apr 17, 2017. 4:39 PM (Germania Hickey MD) Cause of Right heart failure (Germania Hickey MD) Secondary Diagnoses Cor pulmonale, Gastrointestinal bleed Other conditions: Chronic kidney disease, stage V. Type II diabetes mellitus. (Germania Hickey MD) Hospital Course HPI ON ADMISSION: 81 y/o M Hx DM, unsteady gait, HTN, HPL, CKD IV. Pt was admitted to the hospital 03/31 with complaints of dizziness, diplopia and a frontal headache. He was diagnosed with pansinusitis and underwent sinus surgery. He was D/Cd with a 14 day course of Augmentin and was initially recovering well. Over the last several days he has been exhibiting progressive weakness, difficulty ambulating, SOB and worsening lower extremity edema. Additionally, this evening, the pt was complaining of being cold and then developed rigors despite his home being described as overly warm. The pt does not have specific complaints aside from lower back pain which is largely chronic. He denies SOB, CP, N/V,or dysuria. His renal function is slightly worse than usual, he is hyperglycemic and he has a slightly elevated lipase. He does not have abdominal pain and his lactic acid is normal. A CXR did was clear and a head CT may show persistent sinusitis or expected post -op changes. HOSPITAL COURSE: The pt was admitted, and was monitored on telemetry initially overnight. He had no arrhythmias noted,and his hypertension was treated with adjusted medications. He was reviewed by ENT, GI, and Nephrology during his stay. His BP improved, shortness of breath improved, and so he was transferred to the medical floors. He had a CT of the abdomen and pelvis which showed a non- specific inflammatory change in the duodenum, so overnight on 04/16/17 he was made NPO in preparation for EGD the next day (04/17). He had also reported abdominal pain, which had somewhat improved, but a KUB was ordered to elicit if he had any bowel obstruction and a CXR for free air under the diaphragm. While getting his Xrays, he became unresponsive and a Code Purple (Rapid Response) then Code Blue was called. ROSC was achieved after epi and chest compressions. He was brought to the ICU and was intubated. He had a central line and arterial line placed. Palliative Medicine was involved, and in discussion with the family, they elected to proceed with comfort care. The was contacted and agreed with this plan. He was provided with 2mg IV Morphine and extubated, and passed comfortably shortly thereafter with family present. They elected to not have an autopsy. certificate was completed. Other active problems during admission: Weakness, rigors He received 48 hours of IV antibiotics, which were stopped when cultures returned negative. It was recommended he have further PT / OT Hypertension His Norvasc was stopped and Hydralazine increased. CKD Stage IV Baseline Cr 2.7, sees Dr Britt, this continuously abdirahman during admission, with Dr George from [facility] Nephrology following. Type 2 DM Last A1c 8 He had elevated BSG's during admission, so was placed on Lantus with sliding scale coverage Back pain Has been a chronic issue from prior to admission. Was kept on home pain medication regime. (Germania Hickey MD) Resident Physician Supervision Note: I was present with Dr. Hickey during the history and exam. I discussed the case with the resident and agree with the findings and plan as documented in the note. Any exceptions or clarifications are listed here: Please see documentation in separate note for additional details. Documented By: Devin Blood (Devin Blood.,D.O.) Copy To Von Kam M.D.
[2017-04-17] MEDS ORDERED: FENTANYL CITRATE 100 MCG 2 ML CARP IV ONE (18:23)
[2017-04-17] MEDS ORDERED: VECURONIUM BROMIDE 10 MG VIAL IV ONE (18:23)
[2017-04-17] MEDS ORDERED: SODIUM CHLORIDE 0.9% 10ML FLUSH IV ONE ×2 (18:23)
[2017-04-17] MEDS ORDERED: SODIUM CHLORIDE 0.9% 250 ML BAG IV ONE (18:23)
[2017-04-17] MEDS ORDERED: ETOMIDATE 2 MG/ML 20 ML VIAL IV ONE (18:23)
[2017-04-17] MEDS ORDERED: SUCCINYLCHOLINE CHLORIDE 20 MG/ML 10 ML VIAL IV ONE (18:23)
[2017-04-17] MEDS ORDERED: SODIUM CHLORIDE 0.9% 500 ML BAG IV ONE (18:23)
--- NOTE | 2017-04-17 18:29 | Critical Care Consultation ---
Critical Care Consultation Date of Consultation: Apr 17, 2017. Attending Physician: Devin Blood D.O. Reason for Consultation: Code Blue History of Present Illness Patient is an 81-year-old male who was a CODE BLUE in the radiology suite. Per report from the radiology techs they were obtaining an acute obstructive series , the patient had just received a supine flat plate was set up for back pain. The patient started to complain of more back pain and gradually became unresponsive. Radiology staff did not notice a pulse, called a CODE BLUE and began CPR. Please see the CODE BLUE record sheet for additional information. Briefly the when patient was placed on the monitor he was found to be in a bradycardic PEA. He was given multiple rounds of resuscitative ACLS drugs. Eventually return of spontaneous circulation was achieved. Patient did have significant issues with her to cardiology. He was intubated by emergency department staff. A IO was placed in the right shoulder during resuscitative efforts. It was noted that he had melanotic stool. After return of spontaneous circulation he was spontaneously breathing, would withdraw from painful stimuli. A rapid bedside ultrasound was obtained, there appeared to be no pericardial effusion, dysfunction and hypokinesis of the right ventricle, the left ventricle systolic function appeared to be preserved. The fast was negative for free intraperitoneal fluid, there was one sliding bilaterally. EKG obtained revealed a right bundle branch block without significant ST abnormality. Patient was transferred to the ICU for further stabilization and management. Family History Cancer Diabetes mellitus Heart disease Hypertension Social History Smoking Status: Never Smoker Drug Use: none Marital Status: Housing Status: lives with significant other Occupation Status: retired Allergies Coded Allergies: Lisinopril (Verified Allergy, Unknown, HIVES, 04/14/17) Lovastatin (Verified Allergy, Unknown, LEG CRAMPS, 04/14/17) Rofecoxib (Verified Allergy, Unknown, UNKNOWN, 04/14/17) Simvastatin (Verified Allergy, Unknown, LEG CRAMPS, 04/14/17) Methadone (Verified Adverse Reaction, Unknown, HALUCINATIONS, AGITATION, HEADACHES, 04/14/17) Home Medications Scheduled Acarbose (Precose), 25 MG PO DAILY Amlodipine Besylate (Amlodipine Besylate), 10 MG PO QAM Amoxicillin & Pot Clavulanate (Amoxicillin/Clavulanate P), 500 MG PO BIDM Aspirin (Aspirin Ec), 81 MG PO QAM Carvedilol (Coreg), 25 MG PO BID Cholecalciferol (Vitamin D3), 2,000 INTER.UNIT PO QAM Ciprofloxacin (Cipro), 250 MG PO BID Docusate Sodium (Docusate Sodium), 100 MG PO BID Fluticasone Propionate (Fluticasone Propionate), 2 SPRAYS NA BID Guaifenesin Ext Rel (Mucinex Ext Rel), 1,200 MG PO Q12 Hydralazine Hcl (Apresoline), 50 MG PO TID Insulin Isophane (Human) (Novolin N Relion), 10 UNITS SQ QPM Isosorbide Mononitrate Ext Rel (Imdur Ext Rel), 60 MG PO DAILY Lidocaine (Lidocaine), 1 PATCH TD QAM Polyethylene (Miralax), 17 GM PO QAM Thiamine HCl (Vitamin B-1), 200 MG PO BID Scheduled PRN Magnesium Hydroxide (Milk of Magnesia), 30 ML PO Q6H PRN for Constipation Saline ([place] Nasal [place]), 4 SPRAYS NA Q1HWA PRN for Nasal Congestion Current Inpatient Medications Current Inpatient Medications Medications (Trade) Dose Ordered Sig/Sloan Route Start Time Stop Time Status Last Admin Dose Admin Lorazepam (Ativan Inj) 0.5 mg Q2H PRN IV 04/17/17 15:45 05/17/17 15:44 Morphine Sulfate (MoRPHine SULFATE INJ) 2 mg Q1H PRN IV 04/17/17 16:45 05/01/17 15:44 Review of Systems Unable to be obtained due to the acuity of situation Physical Exam Date Time Temp Pulse Resp B/P (MAP) Pulse Ox O2 Delivery O2 Flow Rate FiO2 04/17/17 16:00 51 23 126/42 (70) 98 Mechanical Ventilator 100 04/17/17 15:35 100 04/17/17 15:31 49 13 111/30 (57) 98 Mechanical Ventilator 100 04/17/17 15:30 100 04/17/17 15:30 Mechanical Ventilator 100 04/17/17 15:01 49 14 106/29 (54) 98 Mechanical Ventilator 100 04/17/17 14:31 51 16 111/31 (57) 99 Mechanical Ventilator 100 04/17/17 14:01 54 116/32 (60) 99 Mechanical Ventilator 100 04/17/17 13:11 36.5 57 12 140/48 (78) 95 Mechanical Ventilator 100 04/17/17 12:56 100 04/17/17 12:55 61 132/48 (76) 100 Mechanical Ventilator 100 04/17/17 12:51 62 124/44 (70) 100 Mechanical Ventilator 100 04/17/17 12:46 52 12 75/40 (52) 100 Mechanical Ventilator 100 04/17/17 12:42 62 19 107/60 (76) 99 Mechanical Ventilator 100 04/17/17 12:36 50 77/37 (50) 100 Mechanical Ventilator 100 04/17/17 12:32 60/32 (41) 04/17/17 08:16 56 18 86 Room Air 04/17/17 08:00 Nasal Cannula 3.0 04/17/17 07:46 36.5 61 20 108/73 91 3.0 61 04/17/17 06:53 36.5 61 20 108/63 (78) 91 3.0 04/17/17 00:15 Nasal Cannula 3.0 04/16/17 22:55 35.6 54 28 103/59 (74) 91 Nasal Cannula 3.0 04/16/17 21:14 55 18 117/61 (79) 95 Nasal Cannula 3.0 Physical exam limited to acuity of situation General Appearance: severe distress Head: normocephalic, atraumatic Eyes: PERRLA Neck: other (endotracheally intubated) Respiratory: rhonchi (bilaterally), other (adequate airflow) Cardiovasular: no M/G/R, irregular rate (bradycardic) Abdomen: no bowel sounds, occult rectal blood Genitourinary - Male: external genitalia normal (Shepard placed in ICU), other ( uncircumcised) Pulses: femoral (R) (1+), femoral (L) (1+) Neuro: other (withdrawing to painful stimuli) Laboratory Results Last 24 Hours Test 04/16/17 18:50 04/16/17 20:36 04/16/17 23:07 04/17/17 00:32 Bedside Glucose 310 mg/dl 246 mg/dl 238 mg/dl Test 04/17/17 04:09 04/17/17 06:01 04/17/17 07:22 04/17/17 07:52 Bedside Glucose 255 mg/dl 238 mg/dl 250 mg/dl Sodium Level 133 mmol/L Potassium Level 4.5 mmol/L Chloride Level 100 mmol/L Carbon Dioxide Level 20 mmol/L Anion Gap 13.0 mmol/L Blood Urea Nitrogen 102 mg/dl Creatinine 4.20 mg/dl Est Creatinine Clear Calc Drug Dose 15.8 ml/min Estimated GFR () 14.4 Estimated GFR (Non- 12.4 BUN/Creatinine Ratio 24.2 Random Glucose 233 mg/dl Calcium Level 7.1 mg/dl Phosphorus Level 4.0 mg/dl Albumin 2.4 gm/dl Test 04/17/17 12:10 04/17/17 14:03 Bedside Hemoglobin g/dl Bedside Hematocrit < 15 % Bedside Sodium 148 mEq/L Bedside Potassium 2.0 mEq/L Bedside Chloride 121 mEq/L Bedside Total CO2 9 mEq/l Anion Gap 20.0 mmol/L 13.0 mmol/L Bedside Blood Urea Nitrogen 49 mg/dl Bedside Creatinine 1.6 mg/dl Bedside Glucose (other) 109 mg/dl Bedside Ionized Calcium (Main) 0.47 mmol/l Prothrombin Time 11.3 SECONDS Prothromb Time International Ratio 1.1 Activated Partial Thromboplast Time 31.2 SECONDS Partial Thromboplastin Ratio 1.2 Sodium Level 130 mmol/L Potassium Level 4.8 mmol/L Chloride Level 97 mmol/L Carbon Dioxide Level 20 mmol/L Blood Urea Nitrogen 108 mg/dl Creatinine 4.60 mg/dl Est Creatinine Clear Calc Drug Dose 14.4 ml/min Estimated GFR () 12.9 Estimated GFR (Non- 11.1 BUN/Creatinine Ratio 23.5 Random Glucose 348 mg/dl Calcium Level 6.7 mg/dl Phosphorus Level 4.6 mg/dl Magnesium Level 2.7 mg/dl Total Bilirubin 0.5 mg/dl Aspartate Amino Transf (AST/SGOT) 37 U/L Alanine Aminotransferase (ALT/SGPT) 39 U/L Alkaline Phosphatase 53 U/L Troponin I 0.047 ng/ml Pro-B-Type Natriuretic Peptide 9001 pg/ml Total Protein 5.5 gm/dl Albumin 2.3 gm/dl Globulin 3.2 gm/dl Albumin/Globulin Ratio 0.7 Beta-Hydroxybutyric Acid 8.59 mg/dL Diagnostic Results I reviewed the CT scan of the chest dated 04/14/2017, I reviewed the radiology report as well as images of the abdomen and pelvis CT dated 04/16/2017, I reviewed the multiple x-rays obtained on April 17 as well as radiology reports. I reviewed the report of the stat echocardiogram. Of note the right ventricle is moderately dilated and the tap C was greater than 1.5. There was echo lucency material in a mobile structure involving the pulmonic valve, could not rule out vegetation versus thrombus. Assessment & Plan Patient is an 81-year-old male with significant comorbidities including possible peptic ulcer disease, erosive gastritis causing major GI bleeding. The abnormal echo when compared to 2 days prior and the mobile echolucent material on the pulmonic valve raises suspicion for acute pulmonary emboli. He had a negative venous duplex previously. The patient had two-way systemic anticoagulation risk versus bleeding risk, I think he would be a very appropriate candidate for an IVC filter. In the total picture I feel it appropriate to obtain a CT scan to further evaluate for urinary emboli as well as further elucidation of the source of GI bleeding. Patient would not be a strong candidate for systemic anticoagulation. I discussed this extensively with the patient's for children at the bedside. Given his chronic renal insufficiency, and previous statements that he would not want to undergo dialysis and his medical noncompliance over the year including what the children best described as a poor quality of life being homebound they felt the patient would be best served in accordance with his wishes of being made comfort measures. They contacted the patient's who agreed and felt that all aggressive measures and further treatment should stop. The patient was requiring significant vasoactive medications to maintain his blood pressure and cardiac output. Given the multiple comorbidities and patient's prior statements regarding end-of-life care I feel it is appropriate to transition to comfort measures only. The vasoactive medications were stopped and the patient was terminally extubated. I have personally spent 120 minutes of critical care time in the direct management of this patient. This is a life/limb threatening event. This includes time spent evaluating patient, direct bedside care, chart review, placing orders, interpretation of diagnostic studies, discussion with consultants, patient, and family members, as well as other required patient management activities. This time is exclusive of all separately billable procedures, and teaching time and separate from and in addition to any other critical care service time.
--- NOTE | 2017-04-17 18:34 | Procedure Note ---
Procedure Note Procedure Date Apr 17, 2017. Procedure Description Procedure Name: Right radial artery arterial line Procedure time out: side/site verified, patient ID confirmed, correct procedure Consent obtained: emergent consent implied Time of procedure: 12:50 Performed by: attending Indications: diagnostic Contraindications: none Description: After sterile prep with chlorhexidine and sterile drape to ML's of 1% lidocaine without epi was instilled into the right radial artery. Dynamic ultrasound guidance was employed to successfully place a 20-gauge 3 cm 20-gauge arrow arterial catheter. Arterial line was secured with acute martial securement device and covered with a sterile dressing. Complications: none Patient tolerated procedure: well Post-procedure vital signs: reviewed and stable Central Line Procedure time out: side/site verified, patient ID confirmed, sterile procedure used Consent obtained: emergent consent implied Time of procedure: 12:30 Performed by: attending Indications: poor venous access, central drug admin. Prep: chlorhexadine prep, sterile drape, sterile procedures used, other Anesthesia: local injection, lidocaine 1% without epi Volume anesthetic (ml's): 2 Central line lumen: triple Central line location: internal jugular (R) Additional details: percutaneous placement, ultrasound guidance, Selinger technique used, line sutured, good blood return CXR: appropriate position, no pneumothorax Complications: none Patient tolerated procedure: well Post-procedure vital signs: reviewed and stable Comments: Critical Care Medicine Point of Care Bedside Ultrasound Procedure: Procedural Ultrasound Procedure Date: 04/17/2017 Indication: A central venous access in the right internal jugular vein Attending: Vamsi Callejas DO Resident/Physician Apprentice/Lineman: Manny Gaston Artery AND Vein visualized: y Compressible Vein: y Guidewire or Short Catheter seen in vein prior to dilation: y Line confirmed in Vein with ultrasound: y Lung Sliding on side of attempt (if applicable): y If no lung sliding or not obtained has CXR been ordered: na Impression: Successful placement of right internal jugular vein CVL secured at 15 cm Plan: Infusion of vasoactive medications Images obtained are saved for permanent record
[2017-04-18 20:04] LABS: ALBUMIN 2.7 G/DL (3.8-4.8); FREE KAPPA 85.8 MG/L (3.3-19.4); FREE KAPPA/LAMBDA RATIO 1.48 (0.26-1.65); FREE LAMBDA 58.1 MG/L (5.7-26.3); GAMMA GLOBULIN 0.7 G/DL (0.8-1.7); TOTAL PROTEIN 5.3 G/DL (6.2-8.3)
[2017-04-21 08:23] LABS: ALBUMIN % 63.07 %; ALPHA-2-GLOBULIN % 10.15 %; BETA GLOBULIN % 9.47 %; CREATININE UR 156 MG/DL (20-370); GAMMA GLOBULIN % 15.98 %
== END 2017-04-17 18:24 | disposition expired | DRG 291 ==
LOC: C.EDB 20:27 → ENRESERV 23:59 → CANRESERV 23:59 → C.2T 04-15 00:04 → EDBEDREQSVC 04-15 00:13 → ENRESERV 04-15 00:17 → C.MS4W 04-16 17:32 → C.MSICU 04-17 12:23
PROVIDERS: ADMIT Internal Medicine; ATTEND Family Medicine
PROC: 0BH17EZ Insertion of Endotracheal Airway into Trachea, Via Natural or Artificial Opening (ICD-10-PCS; principal; 2017-04-17)
PROC: 5A1935Z Respiratory Ventilation, Less than 24 Consecutive Hours (ICD-10-PCS; principal; 2017-04-17)
DX: I13.2 Hypertensive heart and chronic kidney disease with heart failure and with stage 5 chronic kidney disease, or end stage renal disease (principal); I50.33 Acute on chronic diastolic (congestive) heart failure; N17.9 Acute kidney failure, unspecified; N18.5 Chronic kidney disease, stage 5; I46.9 Cardiac arrest, cause unspecified; E11.22 Type 2 diabetes mellitus with diabetic chronic kidney disease; E78.5 Hyperlipidemia, unspecified; Z51.5 Encounter for palliative care; Z66 Do not resuscitate; Z79.4 Long term (current) use of insulin; Z79.82 Long term (current) use of aspirin; Z79.899 Other long term (current) drug therapy; Z87.891 Personal history of nicotine dependence; Z98.890 Other specified postprocedural states